=== PATIENT | female | born 1935 | race Caucasian/White ===

== ENCOUNTER → 2016-09-15 | Outpatient (CLI) | payer OTHER, BC | LOC: FIMAGING 13:25 | PROVIDERS: ATTEND Internal Medicine Hematology & Oncology | DX: Z12.39 Encounter for other screening for malignant neoplasm of breast (principal); Z85.3 Personal history of malignant neoplasm of breast; Z80.3 Family history of malignant neoplasm of breast | CPT/HCPCS: 76641; G0206; G0279 ==

== ENCOUNTER → 2016-11-19 | Outpatient (CLI) | payer OTHER, BC | LOC: BHFA 14:30 | PROVIDERS: ATTEND Internal Medicine Cardiovascular Disease | DX: I49.3 Ventricular premature depolarization (principal); I10 Essential (primary) hypertension; I48.91 Unspecified atrial fibrillation; Z95.0 Presence of cardiac pacemaker ==

== ENCOUNTER → 2017-02-16 | Outpatient (CLI) | payer OTHER, BC ==
[~2017-02-16] MED LIST: IOPAMIDOL (ISOVUE-370) 150 ML BTL IV ONE; LIDOCAINE 1% 300 MG/30 ML SDV ONE
== END ==
LOC: FIMAGING 09:34
PROVIDERS: ATTEND Orthopaedic Surgery
PROC: 3E0U3KZ Introduction of Other Diagnostic Substance into Joints, Percutaneous Approach (ICD-10-PCS; principal; 2017-02-16)
DX: S83.242A Other tear of medial meniscus, current injury, left knee, initial encounter (principal); M24.10 Other articular cartilage disorders, unspecified site; M25.562 Pain in left knee; Z95.0 Presence of cardiac pacemaker
CPT/HCPCS: 27370; 73580; 73701; Q9967

== ENCOUNTER → 2017-05-07 | Outpatient (CLI) | payer OTHER, BC | LOC: FIMAGING 14:31 | PROVIDERS: ATTEND Internal Medicine Hematology & Oncology | DX: Z12.89 Encounter for screening for malignant neoplasm of other sites (principal); M89.9 Disorder of bone, unspecified; Z85.3 Personal history of malignant neoplasm of breast ==

== ENCOUNTER 2017-05-13 06:30 | Day surgery (SDC) | payer OTHER, BC ==
--- NOTE | 2017-05-12 11:39 | GHP ---
[f rep st] PREOP HISTORY AND PHYSICAL DATE OF ADMISSION: 05/13/2017 The patient is an 81-year-old female who was initially diagnosed with an upper outer quadrant right b reast cancer in 2001. 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 This was treated with surgical excision followed by radiation therapy. She had a local recurrence in late 2014. She was treated with mastectomy. Aromatase inhib itors were offered but she declined. Patient was found to have some right anterior chest wall abnorm alities on exam, and so a PET-CT scan was obtained with her oncologist. This showed a subtle FDG hosea d soft tissue nodularity along the right anterior chest wall just superior to a skin defect measuring about 0.6 x 1 cm. It has now been decided to proceed with excisional biopsy of this right anterior chest wall mass. Risks and options have been discussed including, but not limited to, bleeding, infe ction, injury to a nerve, need for further surgeries and/or treatments, damage to surrounding structu res, and other problems, and she requests to proceed. PAST MEDICAL HISTORY: Includes breast cancer as outlined above. Also, lupus manifested in the past by pleurisy, chronic sinus drainage, permanent pacemaker placement, and also, she describes a leaky h eart valve. MEDICATIONS: Bystolic, Eliquis, hydrochlorothiazide, levothyroxine, lisinopril, Plaquenil. ALLERGIES: No known drug allergies. SOCIAL HISTORY: Patient is a nonsmoker. Her from pancreatic cancer. FAMILY HISTORY: Noncontributory. REVIEW OF SYSTEMS: A 10-point review of systems negative aside from that listed in the HPI. Patient feeling quite well. PHYSICAL EXAMINATION: GENERAL: Reveals a well-developed, well-nourished, 81-year-old female, in no acute distress. HEENT: Normocephalic, atraumatic. CHEST: Surgical absence of right breast with no dularity of the right anterior chest wall. No lymphadenopathy. CARDIAC: Regular rate and rhythm. ABDOMEN: Soft, nontender. EXTREMITIES: Warm and dry. IMPRESSION: This is an 81-year-old female with a history of breast cancer and recurrence, now with p ossible addition recurrence. PLAN: Plan is to proceed with excisional biopsy as described above. Again, risks and options have b een discussed, and she requests to proceed. She will be given instructions regarding her Eliquis jose g or to surgery. /[id number]/MODL
[~2017-05-13 06:30] MED LIST changes: -IOPAMIDOL (ISOVUE-370) 150 ML BTL IV ONE; -LIDOCAINE 1% 300 MG/30 ML SDV ONE; +ceFAZolin 2 GM in D5W 100 ML IV ONE; +ceFAZolin 2 GM/DEXTROSE 100 ML IV ONE
[2017-05-13] MEDS ORDERED: LR 1,000 ML IV ONE (06:43)
[2017-05-13] MEDS ORDERED: LIDOCAINE 1% 2 ML INJ ID PRN (06:43)
--- NOTE | 2017-05-13 07:24 | PDHPUP ---
History & Physical Update H&P update statement: This history and physical update is based on an assessment of the patient which was completed after admission or registration (within 24 hours), but prior to the surgery/procedure. H&P update: H&P reviewed & patient examined, no change in patient's condition since H&P completed
[2017-05-13 07:34] VITALS: PULSE 68
[2017-05-13] MEDS ORDERED: LIDOCAINE 1% 300 MG/30 ML SDV ONE (07:50)
[2017-05-13] MEDS ORDERED: BUPIVACAINE 0.5% 30 ML SDV ONE (07:50)
[2017-05-13] MEDS ORDERED: SODIUM BICARBONATE 10 MEQ/10 ML SYR IVP ONE (07:50)
[2017-05-13] MEDS ORDERED: METHYLENE BLUE 0.5% 50 MG/10 ML AMP ONE (07:50)
[2017-05-13] MEDS ORDERED: HYDROGEN PEROXIDE 236 ML BOTTLE TP ONE (07:50)
[2017-05-13] MEDS ORDERED: THROMBIN (BOVINE) 5,000 UNIT VIAL TP ONE (07:50)
--- NOTE | 2017-05-13 08:15 | PDANEPAE ---
ANE Past Medical History - Cardiovascular History Hx Hypertension: Yes Hx Arrhythmias: Yes Hx Chest Pain: No Hx Coronary Artery / Peripheral Vascular Disease: No Hx CHF / Valvular Disease: Yes Cardiovascular History Comment: tricuspid prolapse. mild mitral valve prolapse. [employer]tr[employer] notified of times for pre & post pacer check. - Pulmonary History Hx COPD: No Hx Asthma/Reactive Airway Disease: No Hx Recent Upper Respiratory Infection: No Hx Oxygen in Use at Home: No Hx Sleep Apnea: No Sleep Apnea Screening Result - Last Documented: Negative - Neurologic History Hx Cerebrovascular Accident: No Hx Seizures: No Hx Dementia: No Neurologic History Comment: Lupus, with peripheral neuropathy. - Endocrine History Hx Diabetes: No - Renal History Hx Renal Disorders: No - Liver History Hx Hepatic Disorders: No - Neurological & Psychiatric Hx Hx Neurological and Psychiatric Disorders: Yes Neurological / Psychiatric History Comment: lupus - Cancer History Hx Cancer: Yes Cancer History Comment: breast - Congenital Disorder History Hx Congenital Disorders: No - GI History Hx Gastrointestinal Disorders: Yes Gastrointestinal History Comment: nausea change in stool habits - Other Health History Other Health History: bruises easily, pt on eliquis - Chronic Pain History Chronic Pain: No - Surgical History Prior Surgeries: mastectomy 2016 ANE Review of Systems Review of Systems: - Exercise capacity METS (RN): 4 METS - Pacemaker Pacemaker Type: Permanent Pacer/Defib Pacemaker Gold Plater: [employer]tr[employer] Pacemaker Mode: DDDR Pacemaker Set Rate: 60 Date Pacemaker Last Checked: 03/31/17 ANE Patient History - Allergies Allergies/Adverse Reactions: No Known Allergies Allergy (Verified 10/31/15 08:54) - Home Medications Home Medications: Hydrochlorothiazide 10/31/15 [Last Taken 04/15/17] - NPO status NPO Since - Liquids (Date): 05/12/17 NPO Since - Liquids (Time): 22:30 NPO Since - Solids (Date): 05/12/17 NPO Since - Solids (Time): 21:00 - Anes Hx Anes Hx: no prior problems - Smoking Hx Smoking Status: Never smoked - Family Anes Hx Family Hx Anesthesia Complications: none ANE Labs/Vital Signs - Vital Signs Blood Pressure: 196/84 Heart Rate: 68 Respiratory Rate: 16 O2 Sat (%): 96 Height: 172.72 cm Weight: 67.132 kg ANE Physical Exam - Airway Neck exam: FROM Mallampati Score: Class 1 Mouth exam: normal dental/mouth exam - Pulmonary Pulmonary: no respiratory distress, no rales or rhonchi, clear to auscultation - Cardiovascular Cardiovascular: regular rate and rhythym, no murmur, rub, or gallop - ASA Status ASA Status: III ANE Anesthesia Plan Anesthesia Plan: MAC
[2017-05-13] MEDS ORDERED: PROPOFOL 200 MG/20 ML VIAL ONE (08:24)
[2017-05-13] MEDS ORDERED: fentaNYL 100 MCG/2 ML INJ ONE (08:26)
[2017-05-13] MEDS ORDERED: ENALAPRILAT DIHYDRATE 1.25 MG/ML VIAL IVP PRN (08:36)
[2017-05-13] MEDS ORDERED: ONDANSETRON 4 MG/2 ML VIAL IVP PRN ×2 (08:36→09:10)
[2017-05-13] MEDS ORDERED: LABETALOL HCL 50 MG/10 ML SYR IVP PRN (08:36)
[2017-05-13] MEDS ORDERED: fentaNYL 100 MCG/2 ML INJ IVP PRN (08:36)
[2017-05-13] MEDS ORDERED: NALOXONE HCL 0.4 MG/ML INJ IVP PRN (08:36)
[2017-05-13] MEDS ORDERED: HYDROCODONE/APAP 5/325 TAB PO PRN ×2 (08:36→09:10)
[2017-05-13] MEDS ORDERED: ACETAMINOPHEN 500 MG TAB PO PRN (08:36)
[2017-05-13] MEDS ORDERED: ONDANSETRON 4 MG/2 ML VIAL ONE (08:52)
[2017-05-13] MEDS ORDERED: PHENYLEPHRINE HCL 100 MCG/ML SYR ONE (09:00)
--- NOTE | 2017-05-13 09:08 | POSTOPPROG ---
Post Op Note Date of Operation: 05/13/17 Surgeon: Sanjay Wise [facility] Nurse: HARPER MELISSA Anesthesiologist: AISHA Anesthesia: GET(General Endotracheal) Pre-op Diagnosis: CHEST WALL NODULE, PROBABLE RECURRENT BREAST CA Post-op Diagnosis: SAME Indication: MASS Procedure: WIDE EXCISION CHEST WALL MASS WITH ADVANCEMENT FLAP CLOSURE Findings: 1 CM NODULE IN INTERCOSTAL MUSCLE, PATH PENDING Inf/Abcess present in the surg proc area at time of surgery?: No Depth: Deep Incisional (Fascial) EBL: Minimal Complications: 0 Specimen(s): CHEST WALL MASS
[2017-05-13] MEDS ORDERED: HYDROmorphONE/DILAUDID 1 MG/ML INJ IVP PRN (09:10)
--- NOTE | 2017-05-13 09:25 | POSTANESTH ---
Post Anesthetic Evaluation Cardiovascular Status: Similar to Pre-Op Cond Respiratory Status: Normal, Stable, Similar to Pre-op Cond. Level of Consciousness/Mental Status: Can Participate in Eval, Mildly Sleepy, Arousable Pain Control: Adequate, Prn Tx Ordered Nausea/Vomiting Control: Adequate, Prn Tx Ordered Complications Possibly Related to Anesthesia: None Noted
[2017-05-13 10:08] VITALS: TEMP 97.5
[2017-05-13 11:12] VITALS: BP 167/80; RESP 18; O2SAT 95
== END 2017-05-13 11:11 | disposition home or self-care (01) ==
LOC: FSGY 06:30
PROVIDERS: ATTEND Surgery
PROC: 0JB60ZX Excision of Chest Subcutaneous Tissue and Fascia, Open Approach, Diagnostic (ICD-10-PCS; principal; 2017-05-13 08:15)
DX: C79.81 Secondary malignant neoplasm of breast (principal); Z85.3 Personal history of malignant neoplasm of breast; Z90.11 Acquired absence of right breast and nipple; I48.0 Paroxysmal atrial fibrillation; I10 Essential (primary) hypertension; I25.10 Atherosclerotic heart disease of native coronary artery without angina pectoris; I34.1 Nonrheumatic mitral (valve) prolapse; L93.0 Discoid lupus erythematosus; Z95.0 Presence of cardiac pacemaker
CPT/HCPCS: J0690; J2370; J2405; J2704; J3010; Q9968

== ENCOUNTER 2017-05-31 09:27 | Emergency (ER) | payer OTHER, BC ==
[2017-05-31] MEDS ORDERED: NS 500 ML IV ONE (10:02)
--- NOTE | 2017-05-31 10:11 | EDPHY ---
H & P Time Seen by Provider: 05/31/17 09:39 HPI/ROS: CHIEF COMPLAINT: Generalized weakness, nausea HISTORY OF PRESENT ILLNESS: 81-year-old female with a history of hypertension and lupus presents with generalized weakness and nausea. Onset elevated blood pressure, associated with a generalized headache 3 days ago. She was seen at [facility] ED twice and received a prescription for clonidine. Intermittent headache, associated with nausea and generalized weakness over the last 3 days. This morning her blood pressure was elevated and she took clonidine , as well as her usual blood pressure medications. She continues to feel nauseated and weak. Often feels nauseated and has a prescription for nausea medicine. However, she does not like to take medicines so has not tried the medication. She is especially concerned that she is having a lupus flare. She takes Plaquenil for lupus. Her temperature has been slightly low (97.2F), which is typical of her lupus flares. REVIEW OF SYSTEMS: Constitutional: No fever, no chills Eyes: No visual changes ENT: No sore throat Respiratory: No cough, no shortness of breath Cardiac: No chest pain Gastrointestinal: no vomiting, no abdominal pain Genitourinary: no dysuria Musculoskeletal: No leg pain or swelling Skin: No rash Neurological: No headache, no weakness Psychiatric: No depression Past Medical/Surgical History: Hypertension Lupus Social History: Lives alone in own home PCP: Dr. Pulido Smoking Status: Never smoked Physical Exam: General Appearance: Alert, pleasant Eyes: Pupils equal and round, no conjunctival pallor or injection ENT, Mouth: Mucous membranes moist Neck: Normal inspection Respiratory: Lungs are clear to auscultation Cardiovascular: Regular rate and rhythm Gastrointestinal: Abdomen is soft and nontender Neurological: A&O, nonfocal, normal gait Skin: Warm and dry, no rash Extremities: Nontender, no pedal edema Psychiatric: Mood and affect normal Constitutional: Initial Vital Signs Temperature (C) 37 C 05/31/17 09:33 Heart Rate 62 05/31/17 09:33 Respiratory Rate 18 05/31/17 09:33 Blood Pressure 141/86 H 05/31/17 09:33 O2 Sat (%) 94 05/31/17 09:33 O2 Delivery Mode Room Air Allergies/Adverse Reactions: No Known Allergies Allergy (Verified 10/31/15 08:54) Home Medications: Medication Instructions Recorded Aspirin [Aspirin 325 mg (*)] 325 mg PO DAILY #0 tab 09/04/15 Hydroxychloroquine Sulfate 200 mg PO BID #0 tab 09/04/15 [Plaquenil 200 mg (*)] Levothyroxine [Synthroid 25 mcg 25 mcg PO DAILY06 #0 tab 09/04/15 (*)] Lisinopril [Zestril 5 mg (*)] 2.5 mg PO BID #0 tab 09/04/15 Nebivolol HCl [Bystolic 5 mg (*)] 5 mg PO BID #0 tab 09/04/15 Eliquis 05/31/17 Medical Decision Making - Diagnostics EKG Interpretation: EKG interpreted by me reveals an AV paced rhythm, rate 60. ED Course/Re-evaluation: 10:00 a.m.-I consulted Dr. Tani Sargent, the patient's check writer salesperson. He requests a double-stranded DNA, CRP and urinalysis. No steroids for now. He will follow up with the patient in the office. Discussed this with the patient and she is in agreement with the plan. Laboratory test results discussed with the patient. She feels much better. During monitoring in the emergency department, her blood pressure has been fairly normal, with a systolic blood pressure around 140. No episodes of extreme hypertension. She will continue taking her blood pressure medications as prescribed and clonidine as needed for elevated blood pressure. She will follow up with Dr. Sargent in the office. Differential Diagnosis: Differential diagnosis includes does not limited to lupus flare, urinary tract infection, hyponatremia, hypoglycemia, infectious etiology. - Data Points Laboratory Results: Laboratory Results 05/31/17 10:10 05/31/17 10:10 05/31/17 05/31/17 05/31/17 11:40 10:10 10:10 WBC RBC Hgb Hct MCV MCH MCHC RDW Plt Count MPV Neut % (Auto) Lymph % (Auto) [place] % (Auto) Eos % (Auto) Baso % (Auto) Nucleat RBC Rel Count Absolute Neuts (auto) Absolute Lymphs (auto) Absolute Monos (auto) Absolute Eos (auto) Absolute Basos (auto) Absolute Nucleated RBC Immature Gran % Immature Gran # Sodium Potassium Chloride Carbon Dioxide Anion Gap BUN Creatinine Estimated GFR Glucose Calcium C-Reactive Protein Urine Color YELLOW Urine Appearance CLEAR Urine pH 6.0 (5.0-7.5) Ur Specific [place] 1.005 (1.002-1.030) Urine Protein NEGATIVE (NEGATIVE) Urine Ketones NEGATIVE (NEGATIVE) Urine Blood NEGATIVE (NEGATIVE) Urine Nitrate NEGATIVE (NEGATIVE) Urine Bilirubin NEGATIVE (NEGATIVE) Urine Urobilinogen NEGATIVE EU EU (0.2-1.0) Ur Leukocyte Esterase NEGATIVE (NEGATIVE) Urine Glucose NEGATIVE (NEGATIVE) PAT Titer Pending PAT Pattern Pending PAT Reviewed By Pending Anti-ds DNA IgG Ab Pending 05/31/17 05/31/17 10:10 10:10 WBC 4.00 10^3/uL 10^3/uL (3.80-9.50) RBC 3.94 10^6/uL L 10^6/uL (4.18-5.33) Hgb 13.6 g/dL g/dL (12.6-16.3) Hct 38.7 % % (38.0-47.0) MCV 98.2 fL fL (81.5-99.8) MCH 34.5 pg H pg (27.9-34.1) MCHC 35.1 g/dL g/dL (32.4-36.7) RDW 12.8 % % (11.5-15.2) Plt Count 155 10^3/uL 10^3/uL (150-400) MPV 9.6 fL fL (8.7-11.7) Neut % (Auto) 60.1 % % (39.3-74.2) Lymph % (Auto) 25.5 % % (15.0-45.0) [place] % (Auto) 12.8 % % (4.5-13.0) Eos % (Auto) 0.8 % % (0.6-7.6) Baso % (Auto) 0.5 % % (0.3-1.7) Nucleat RBC Rel Count 0.0 % % (0.0-0.2) Absolute Neuts (auto) 2.41 10^3/uL 10^3/uL (1.70-6.50) Absolute Lymphs (auto) 1.02 10^3/uL 10^3/uL (1.00-3.00) Absolute Monos (auto) 0.51 10^3/uL 10^3/uL (0.30-0.80) Absolute Eos (auto) 0.03 10^3/uL 10^3/uL (0.03-0.40) Absolute Basos (auto) 0.02 10^3/uL 10^3/uL (0.02-0.10) Absolute Nucleated RBC 0.00 10^3/uL 10^3/uL (0-0.01) Immature Gran % 0.3 % % (0.0-1.1) Immature Gran # 0.01 10^3/uL 10^3/uL (0.00-0.10) Sodium 137 mEq/L mEq/L (134-144) Potassium 4.6 mEq/L mEq/L (3.5-5.2) Chloride 98 mEq/L mEq/L (97-110) Carbon Dioxide 29 mEq/l mEq/l (22-31) Anion Gap 10 mEq/L mEq/L (8-16) BUN 21 mg/dL mg/dL (7-23) Creatinine 1.1 mg/dL H mg/dL (0.6-1.0) Estimated GFR 47 Glucose 78 mg/dL mg/dL (70-100) Calcium 10.0 mg/dL mg/dL (8.5-10.4) C-Reactive Protein < 5.0 mg/L mg/L (<10.0) Urine Color Urine Appearance Urine pH Ur Specific [place] Urine Protein Urine Ketones Urine Blood Urine Nitrate Urine Bilirubin Urine Urobilinogen Ur Leukocyte Esterase Urine Glucose PAT Titer PAT Pattern PAT Reviewed By Anti-ds DNA IgG Ab Medications Given: Discontinued Medications Sodium Chloride (Ns) 500 mls @ 0 mls/hr IV EDNOW ONE; Wide Open PRN Reason: Protocol Stop: 05/31/17 10:03 Last Admin: 05/31/17 10:26 Dose: 500 mls Departure - Departure Disposition: Home, Routine, Self-Care Clinical Impression: Nausea Hypertension Qualifiers: Hypertension type: essential hypertension Qualified Code(s): I10 - Essential ( primary) hypertension Condition: Good Instructions: Acute Nausea and Vomiting (ED), Hypertension (ED) Additional Instructions: Take the nausea medicine as needed for nausea. Return for worsening symptoms or any concerns. Referrals: Tani Sargent MD [Primary Care Provider] - As per Instructions (Call to make an appointment. )
--- NOTE | 2017-05-31 10:20 | CPEKG ---
Heart Rate: 60 RR Interval: 1000 P-R Interval: 298 QRSD Interval: 132 QT Interval: 456 QTC Interval: 456 P [place]: 0 QRS [place]: 98 T Wave [place]: 204 EKG Severity - ABNORMAL ECG - EKG Impression: ATRIAL-VENTRICULAR DUAL-PACED COMPLEXES Electronically Signed By: Sabrina Parish 31-May-2017 15:00:17
--- NOTE | 2017-05-31 10:20 | CPEKG ---
Heart Rate: 60 RR Interval: 1000 P-R Interval: 298 QRSD Interval: 132 QT Interval: 456 QTC Interval: 456 P [place]: 0 QRS [place]: 98 T Wave [place]: 204 EKG Severity - ABNORMAL ECG - EKG Impression: ATRIAL-VENTRICULAR DUAL-PACED COMPLEXES Electronically Signed By: Sabrina Parish 31-May-2017 15:00:17
[2017-05-31 11:17] LABS: PLATELET COUNT 155 10^3/uL (150-400)
[2017-05-31 12:06] VITALS: RESP 18; TEMP 98.4; O2SAT 96
[2017-05-31 13:05] VITALS: BP 139/78; PULSE 72
== END 2017-05-31 13:04 | disposition home or self-care (01) ==
DX: R11.0 Nausea (principal); I10 Essential (primary) hypertension; E86.9 Volume depletion, unspecified; Z79.82 Long term (current) use of aspirin
CPT/HCPCS: 86225-90

== ENCOUNTER 2017-07-07 13:34 | Inpatient (IN) | payer OTHER, BC ==
--- NOTE | 2017-07-07 14:09 | CPEKG ---
Heart Rate: 71 RR Interval: 845 P-R Interval: 296 QRSD Interval: 140 QT Interval: 428 QTC Interval: 466 P [place]: 88 QRS [place]: 101 T Wave [place]: 195 EKG Severity - ABNORMAL ECG - EKG Impression: VENTRICULAR-PACED RHYTHM Electronically Signed By: John Spears 07-Jul-2017 14:27:59
--- NOTE | 2017-07-07 14:09 | EDPHY ---
H & P Stated Complaint: Labile hypertension, left-sided numbness Time Seen by Provider: 07/07/17 14:07 HPI/ROS: CHIEF COMPLAINT: Labile hypertension, left-sided paresthesias HISTORY OF PRESENT ILLNESS: The patient is referred to the emergency department by her vfx artist Dr. Ford Patel for admission to the hospital. The patient has had labile hypertension over the past several weeks since beginning tamoxifen in radiation therapy. The patient reports she has been experiencing blood pressure in the 210/150 region sporadically. She has been managing this with lisinopril, Bystolic and occasional clonidine. The patient was seen by her vfx artist today and noted to have a blood pressure of 188/ 100 and was referred to the emergency department for further evaluation. The patient is currently on Eliquis for chronic atrial fibrillation. Additionally the patient has a pacemaker. The patient denies any acute neurologic symptoms currently. The patient does complain of a severe headache. REVIEW OF SYSTEMS: A comprehensive 10 point review of systems is otherwise negative aside from elements mentioned in the history of present illness. Source: Patient Exam Limitations: No limitations - Personal History Current Tetanus Diphtheria and Acellular Pertussis (TDAP): No - Medical/Surgical History Hx Asthma: No Hx Chronic Respiratory Disease: No Hx Diabetes: No Hx Cardiac Disease: Yes Hx Renal Disease: No Hx Cirrhosis: No Hx Alcoholism: No Hx HIV/AIDS: No Hx Splenectomy or Spleen Trauma: No Other PMH: HTN, lupus, pacemaker, appy, breast CA (rt side), a-fib - Social History Smoking Status: Never smoked - Physical Exam Exam: General Appearance: Alert, no distress Eyes: Pupils equal and round no pallor or injection ENT, Mouth: Mucous membranes moist Respiratory: There are no retractions, lungs are clear to auscultation Cardiovascular: Regular rate and rhythm Gastrointestinal: Abdomen is soft and nontender, no masses, bowel sounds normal Neurological: A&O, normal motor function, normal sensory exam, normal cranial nerves Skin: Warm and dry, no rashes Musculoskeletal: Neck is supple nontender Extremities: symmetrical, full range of motion Constitutional: Initial Vital Signs Temperature (C) 36.5 C 07/07/17 13:35 Heart Rate 80 07/07/17 13:35 Respiratory Rate 18 07/07/17 13:35 Blood Pressure 162/89 H 07/07/17 13:35 O2 Sat (%) 97 07/07/17 13:35 O2 Delivery Mode Room Air Allergies/Adverse Reactions: No Known Allergies Allergy (Verified 10/31/15 08:54) Home Medications: Medication Instructions Recorded Levothyroxine [Synthroid 25 mcg 25 mcg PO DAILY06 #0 tab 09/04/15 (*)] Nebivolol HCl [Bystolic 5 mg (*)] 5 mg PO BID #0 tab 09/04/15 Apixaban [Eliquis] 2.5 mg PO BID 05/31/17 Butalbit/Acetamin/Caff/Codeine 1 each PO DAILY PRN 07/07/17 [[id number]-[id number]-Klypmeplrqo-Codein] Hydroxychloroquine Sulfate 200 mg PO DAILY 07/07/17 [Plaquenil 200 mg (*)] Lisinopril [Zestril 5 mg (*)] 5 mg PO BID 07/07/17 predniSONE [Prednisone] 10 mg PO DAILY PRN 07/07/17 Medical Decision Making - Diagnostics EKG Interpretation: EKG: Complete interpretation has been separately [facility] in the [facility] archive. Summary impression: Ventricular paced rhythm Imaging Results: Imaging Impressions Head CT 07/07/17 14:24 Impression: 1. No acute intracranial findings. 2. Diffuse cerebral atrophy with periventricular and subcortical low attenuation consistent with chronic microvascular ischemic gliosis. Findings discussed with John Spears 07/07/2017 at 1540. ED Course/Re-evaluation: The patient presents to the ED for admission to the hospital with a recommendation for vfx artist. The patient has been having TIA symptoms with left-sided paresthesias over the past day. The patient has had associated hypertension with the symptoms. The patient is currently normotensive with a normal neurologic exam. Her NIH stroke scale is 0. The patient was taken for a stat noncontrast head CT scan for evaluation of her acute headache in the setting of hypertension anticoagulation use. The patient's case was discussed with Dr. Tyra Garcia from the hospitalist service who will admit the patient this evening. The patient received serial examinations in the ED. At 4:30 p.m. the patient's blood pressure is currently 152/100. Heart rate is 66. Neurologic examination remains normal. The patient is awaiting an inpatient bed. Differential Diagnosis: Differential diagnosis considered includes stroke, TIA, hypertensive emergency, intracranial hemorrhage - Data Points Laboratory Results: Laboratory Results 07/07/17 14:30 07/07/17 14:30 07/07/17 07/07/17 07/07/17 14:30 14:30 14:30 WBC 4.94 10^3/uL 10^3/uL (3.80-9.50) RBC 3.61 10^6/uL L 10^6/uL (4.18-5.33) Hgb 12.7 g/dL g/dL (12.6-16.3) Hct 35.0 % L % (38.0-47.0) MCV 97.0 fL fL (81.5-99.8) MCH 35.2 pg H pg (27.9-34.1) MCHC 36.3 g/dL g/dL (32.4-36.7) RDW 12.8 % % (11.5-15.2) Plt Count 140 10^3/uL L 10^3/uL (150-400) MPV 9.6 fL fL (8.7-11.7) Neut % (Auto) 83.8 % H % (39.3-74.2) Lymph % (Auto) 11.3 % L % (15.0-45.0) [place] % (Auto) 4.3 % L % (4.5-13.0) Eos % (Auto) 0.0 % L % (0.6-7.6) Baso % (Auto) 0.2 % L % (0.3-1.7) Nucleat RBC Rel Count 0.0 % % (0.0-0.2) Absolute Neuts (auto) 4.14 10^3/uL 10^3/uL (1.70-6.50) Absolute Lymphs (auto) 0.56 10^3/uL L 10^3/uL (1.00-3.00) Absolute Monos (auto) 0.21 10^3/uL L 10^3/uL (0.30-0.80) Absolute Eos (auto) 0.00 10^3/uL L 10^3/uL (0.03-0.40) Absolute Basos (auto) 0.01 10^3/uL L 10^3/uL (0.02-0.10) Absolute Nucleated RBC 0.00 10^3/uL 10^3/uL (0-0.01) Immature Gran % 0.4 % % (0.0-1.1) Immature Gran # 0.02 10^3/uL 10^3/uL (0.00-0.10) PT 14.4 SEC SEC (12.0-15.0) INR 1.10 (0.83-1.16) APTT 25.8 SEC SEC (23.0-38.0) Sodium 138 mEq/L mEq/L (134-144) Potassium 4.3 mEq/L mEq/L (3.5-5.2) Chloride 103 mEq/L mEq/L (97-110) Carbon Dioxide 25 mEq/l mEq/l (22-31) Anion Gap 10 mEq/L mEq/L (8-16) BUN 24 mg/dL H mg/dL (7-23) Creatinine 0.9 mg/dL mg/dL (0.6-1.0) Estimated GFR 60 Glucose 125 mg/dL H mg/dL (70-100) Calcium 9.5 mg/dL mg/dL (8.5-10.4) Medications Given: Discontinued Medications Morphine Sulfate (Morphine) 4 mg IVP EDNOW ONE Stop: 07/07/17 16:02 Last Admin: 07/07/17 16:12 Dose: Not Given Departure - Departure Disposition: [facility] Inpatient Acute Clinical Impression: TIA (transient ischemic attack), Hypertensive emergency Condition: Fair
[2017-07-07 14:40] LABS: % IMMATURE GRANULYOCYTES 0.4 % (0.0-1.1); ABSOLUTE IMMATURE GRANULOCYTES 0.02 10^3/uL (0.00-0.10); ADD DIFF? NO; ADD MORPH? NO; ADD SCAN? NO; ATYPICAL LYMPHOCYTE FLAG 10 (0-99); FRAGMENT RBC FLAG 0 (0-99); HEMOGLOBIN 12.7 g/dL (12.6-16.3); LEFT SHIFT FLG 0 (0-99); LIPEMIA HEMOLYSIS FLAG 90 (0-99); MEAN CELL HEMOGLOBIN 35.2 pg (27.9-34.1); MEAN CELL HEMOGLOBIN CONCENTR. 36.3 g/dL (32.4-36.7); MEAN PLATELET VOLUME 9.6 fL (8.7-11.7); PLATELET CLUMPS FLAG 10 (0-99); PLATELET COUNT 140 10^3/uL (150-400); RED BLOOD CELL COUNT 3.61 10^6/uL (4.18-5.33); RED CELL DISTRIBUTION WIDTH 12.8 % (11.5-15.2)
[2017-07-07 14:54] LABS: ANION GAP 10 mEq/L (8-16); CALCIUM 9.5 mg/dL (8.5-10.4); CARBON DIOXIDE 25 mEq/l (22-31); CHLORIDE 103 mEq/L (97-110); CREATININE 0.9 mg/dL (0.6-1.0); GLOMERULAR FILTRATION RATE 60; GLUCOSE 125 mg/dL (70-100); POTASSIUM 4.3 mEq/L (3.5-5.2); SODIUM 138 mEq/L (134-144)
[2017-07-07 15:08] LABS: INR 1.1 (0.83-1.16); PROTIME(PATIENT) 14.4 SEC (12.0-15.0)
[2017-07-07 15:09] LABS: APTT 25.8 SEC (23.0-38.0)
[2017-07-07] MEDS ORDERED: ONDANSETRON DISINTEGRATING 4 MG TAB PO PRN (17:36)
[2017-07-07] MEDS ORDERED: ACETAMINOPHEN 325 MG TAB PO PRN (17:36)
[2017-07-07] MEDS ORDERED: ONDANSETRON 4 MG/2 ML VIAL IVP PRN (17:36)
[2017-07-07] MEDS ORDERED: BUTALBIT PO PRN (17:38)
[2017-07-07] MEDS ORDERED: CODEINE PO PRN (17:38)
[2017-07-07] MEDS ORDERED: ACETAMIN PO PRN (17:38)
[2017-07-07] MEDS ORDERED: CAFF PO PRN (17:38)
--- NOTE | 2017-07-07 17:58 | GHP ---
[f rep st] HISTORY AND PHYSICAL DATE OF ADMISSION: 07/07/2017 CHIEF COMPLAINT: Elevated blood pressure, headache. HISTORY OF PRESENT ILLNESS: This is an 82-year-old female with a history of hypertension, as well as atrial fibrillation and a recent diagnosis of recurrent breast cancer. She states that she has been getting radiation for the last 5 days and that the radiation is making her blood pressure rise. She was actually given clonidine to use as needed by her oncologist. However, in spite of that her bloo d pressure this morning was over 200 and was associated with headache and also some transient left-si ded numbness and tingling with a little bit of left-sided weakness. This resolved pretty quickly, on ce she took another dose of clonidine which decreased her blood pressure. She went to see her cardio logist, Dr. Patel and her blood pressures were in the 180s and with her neurological symptoms, she w as sent to the emergency department. Currently, she does not have any neurological symptoms. Her bl ood pressure has come down to the 150s but has been as high as 181/92 here. She states that she did have a headache and feels hot. She states the radiation is making her feel hot. It has also kicked up her previous history of lupus and she has increased her prednisone. She denies any chest pain. A gain, she has no neurological symptoms currently. REVIEW OF SYSTEMS: A 10-point review of systems was obtained and was negative. PAST MEDICAL HISTORY: 1. Recurrent breast cancer. She was initially diagnosed 12 years ago and then had a recurrence in h er chest wall just recently. This was removed. She is undergoing radiation. She has been unable to tolerate tamoxifen or aromatase inhibitors. 2. Atrial fibrillation, she is on Eliquis. 3. Pacemaker. 4. Lupus which as above, she has increased her prednisone to 10 mg daily. 5. Hypertension. SOCIAL HISTORY: No smoking or alcohol. Her 7 years ago. She does live in [place] a nd here in [place]. FAMILY HISTORY: Both parents are . PHYSICAL EXAM: VITAL SIGNS: Afebrile, blood pressure is 152/102, oxygen saturation is 98% on room a ir, heart rate 72. GENERAL: Patient is well developed, no apparent distress. HEENT: Nonicteric scl erae. Extraocular movements intact. Moist mucous membranes. NECK: Supple. No thyromegaly. LUNGS : Good effort. Clear to auscultation bilaterally. CARDIOVASCULAR: Regular rate and rhythm. No mu rmurs or gallops. CHEST WALL: Does show some inflammation where I believe she is getting radiation on the right side. ABDOMEN: Positive bowel sounds. Soft, nontender, nondistended. No hepatospleno megaly. EXTREMITIES: No clubbing, cyanosis, or edema. SKIN: Without rash, dry, intact. NEUROLOGI C: Alert and oriented x3. 5/5 strength in all 4 extremities. PSYCH: Normal mood and affect. LABS: CBC is essentially normal although platelets are a little low. Chemistries normal. EKG shows a paced rhythm. Head CT is negative for any acute changes. ASSESSMENT: This 82-year-old female with uncontrolled hypertension probably due to her radiation. PLAN: 1. Uncontrolled hypertension. The patient is on a small dose of lisinopril. We will increase that to 10 mg twice daily for 5 mg twice daily. She does state that she is sensitive to lisinopril and do es make her feel like her "blood has stopped pumping." We will watch and see what her blood pressure does overnight and in the morning. Could also add Norvasc or go up on Bystolic. I think that using clonidine on a regular basis could be counterproductive because of the rebound hypertension. I thin k her transient neurological symptoms were due to her high blood pressure. We will not institute an extensive transient ischemic attack workup currently. She is on Eliquis already for her atrial fibri llation. 2. Breast cancer. The patient is scheduled for radiation tomorrow, which I think she probably will cancel. 3. Atrial fibrillation. The patient is currently in a paced rhythm. We will continue Eliquis. /[id number]/MODL
[2017-07-07] MEDS: LISINOPRIL 10 MG TAB PO SCH (20:21)
[2017-07-07] MEDS: APIXABAN 2.5 MG TAB PO SCH (20:22)
[2017-07-07] MEDS: NEBIVOLOL HCL 5 MG TAB PO SCH (20:22)
[2017-07-08 05:43] LABS: % IMMATURE GRANULYOCYTES 0.5 % (0.0-1.1); ABSOLUTE IMMATURE GRANULOCYTES 0.02 10^3/uL (0.00-0.10); ADD DIFF? NO; ADD MORPH? NO; ADD SCAN? NO; ATYPICAL LYMPHOCYTE FLAG 20 (0-99); FRAGMENT RBC FLAG 0 (0-99); HEMATOCRIT 35.8 % (38.0-47.0); HEMOGLOBIN 12.7 g/dL (12.6-16.3); LEFT SHIFT FLG 0 (0-99); LIPEMIA HEMOLYSIS FLAG 90 (0-99); MEAN CELL HEMOGLOBIN 34.5 pg (27.9-34.1); MEAN CELL HEMOGLOBIN CONCENTR. 35.5 g/dL (32.4-36.7); MEAN CELL VOLUME 97.3 fL (81.5-99.8); MEAN PLATELET VOLUME 9.9 fL (8.7-11.7); PLATELET CLUMPS FLAG 0 (0-99); PLATELET COUNT 143 10^3/uL (150-400); RED BLOOD CELL COUNT 3.68 10^6/uL (4.18-5.33); RED CELL DISTRIBUTION WIDTH 12.8 % (11.5-15.2)
[2017-07-08 05:47] LABS: ANION GAP 9 mEq/L (8-16); CALCIUM 9.5 mg/dL (8.5-10.4); CARBON DIOXIDE 25 mEq/l (22-31); CHLORIDE 104 mEq/L (97-110); CREATININE 0.9 mg/dL (0.6-1.0); GLOMERULAR FILTRATION RATE 60; GLUCOSE 81 mg/dL (70-100); POTASSIUM 4.4 mEq/L (3.5-5.2); SODIUM 138 mEq/L (134-144)
[2017-07-08] MEDS: LEVOTHYROXINE 25 MCG TAB PO SCH (05:59)
[2017-07-08] MEDS: HYDROXYCHLOROQUINE SULFATE 200 MG TAB PO SCH (08:39)
[2017-07-08] MEDS: LISINOPRIL 10 MG TAB PO SCH ×2 (08:40→20:38)
[2017-07-08] MEDS: APIXABAN 2.5 MG TAB PO SCH ×2 (08:40→20:38)
[2017-07-08] MEDS: NEBIVOLOL HCL 5 MG TAB PO SCH ×2 (08:40→20:38)
[2017-07-08] MEDS: predniSONE 10 MG TAB PO PRN (08:45)
--- NOTE | 2017-07-08 10:15 | ASMTCMCOM ---
CM Note CM Note Notes: Met with patient. She currently lives alone. Daughter in area but patient states she is busy and unable to provide a lot of support. patient reports she is currently undergoing radiation therapy for re-occuring breast cancer and this is stressful for her. She denies any needs for [facility] but is 5/30 days of radiation. She is tearful and states she is unsure of her ability to maintain this schedule. No current needs identified but CM to follow. Date Signed: 07/08/2017 10:15 AM Electronically Signed By:Cata Saldaña RN
--- NOTE | 2017-07-08 13:00 | HOSPPROG ---
Hospitalist Progress Note Assessment/Plan: Patient is an 82-year-old female with history of hypertension, atrial fibrillation and recent diagnosis of recurrent breast cancer. She has been getting radiation with the last 5 days. When she receives radiation makes her blood pressure rise. She was given clonidine to use as needed by her oncologist. However in spite of this her systolic blood pressure was over 200. Today is my 1st encounter with the patient. Chart reviewed. * uncontrolled hypertension -blood pressure is much improved with increasing her dose of lisinopril -she is on clonidine prn and took this w good results -will do a trial of hydralazine prn *she had some weakness on left side of her body prior (l arm, l leg and left facial area) to admission, poss had a TIA -can't do an MRI due to pacer -symptoms have completely resolved -will get carotid Doppler studies -check lipid panel in a.m. -neurology to see *headache -reviewed CT scan which shows chronic gliosis, nothing acute (this is a chronic finding) -blood pressure is stable when I evaluated her but she cont to have a headache * atrial fibrillation -she has a pacemaker in place and is paced, anticoagulated with Eliquis -she was to have pacer checked today, will have this done while in the hospital * breast cancer -radiation rescheduled for Wednesday *plan: headache is ongoing, increased her frequency of her home medication, concern with this medication and multiple side effects. She has ongoing headaches that can be severe and concern for possible TIA. Will ask neurology to further evaluate. Will place her on tele. She will require another midnight stay for close monitoring. Subjective: Naomy said she is concerned about the frequency of her headaches and is very concerned about her high blood pressure which has been ongoing for a few months. Objective: Vital Signs Temp Pulse Resp BP Pulse Ox 36.9 C 60 16 136/80 H 96 07/08/17 08:00 07/08/17 12:00 07/08/17 12:00 07/08/17 12:00 07/08/17 12:00 Laboratory Results 07/08/17 05:00 07/08/17 05:00 07/07/17 07/08/17 07/09/17 05:59 05:59 05:59 Intake Total 650 Balance 650 PT 14.4 SEC (12.0-15.0) 07/07/17 14:30 INR 1.10 (0.83-1.16) 07/07/17 14:30 - Physical Exam Constitutional: no apparent distress, appears nourished, No not in pain ( headache) Eyes: PERRL Ears, Nose, Mouth, Throat: hearing normal Cardiovascular: regular rate and rhythym Respiratory: no respiratory distress Gastrointestinal: normoactive bowel sounds Skin: warm, normal color Musculoskeletal: full muscle strength Neurologic: AAOx3, CN II-XII Intact, No weakness, No numbness, No pronator drift , No facial droop Psychiatric: interacting appropriately, not anxious, not encephalopathic ICD10 Worksheet Patient Problems: Problems Problem Status Onset Hypertensive emergency Acute TIA (transient ischemic attack) Acute Breast cancer Acute Headache Acute Hypertension Acute
[2017-07-08] MEDS: hydrALAZINE 10 MG TAB PO PRN ×2 (15:47→23:01)
[2017-07-09 05:00] VITALS: TEMP 98.5
[2017-07-09 05:06] LABS: CHOLESTEROL 167 mg/dL (140-220); CHOLESTEROL/HDL RATIO 2.53 RATIO (1.00-4.44); HIGH DENSITY LIPOPROTEIN 66 mg/dL (40-85); LDL/HDL RATIO 1.32 RATIO (1.00-3.22); LOW DENSITY LIPOPROTEIN 87 mg/dL (80-100); NON-HIGH DENSITY LIPOPROTEIN 101 mg/dL (90-129); TRIGLYCERIDE 72 mg/dL (35-135); VERY LOW DENSITY LIPOPROTEINS 14 mg/dL (8-25)
[2017-07-09] MEDS: LEVOTHYROXINE 25 MCG TAB PO SCH (06:01)
[2017-07-09 07:57] VITALS: RESP 20
[2017-07-09] MEDS: HYDROXYCHLOROQUINE SULFATE 200 MG TAB PO SCH (08:52)
[2017-07-09] MEDS: NEBIVOLOL HCL 5 MG TAB PO SCH (08:53)
[2017-07-09] MEDS: APIXABAN 2.5 MG TAB PO SCH (08:53)
[2017-07-09] MEDS: predniSONE 10 MG TAB PO PRN (08:53)
[2017-07-09] MEDS: LISINOPRIL 10 MG TAB PO SCH (08:53)
--- NOTE | 2017-07-09 09:22 | PDMN ---
Medical Necessity Medical necessity: change to IP; los>2mn for uncontrolled htn, r/o TIA, continued LYON; requires neuro consult, further imaging, initiate tele, med adjustment for BP and pain control; comorbid breast CA w/RT, afib; per order and progress note 07/08/17
[2017-07-09 09:26] LABS: HEMOGLOBIN A1C 5.7 % (4.0-6.0)
--- NOTE | 2017-07-09 09:48 | NEUROPROG ---
Assessment: HOSPITAL NEUROLOGY CONSULT REQUESTING: Karen Kumar NP REASON: ? TIA HPI: 82 year old right-handed woman with a history of HTN, afib on therapeutic anticoagulation and with PPM, SLE, recurrent breast CA currently undergoing radiation who presented to our facility 07/07 due to accelerated BP and left sided tingling. Patient notes increasing BPs with her radiation treatment. She has been using clonidine PRN at the behest of her oncology team. She notes the morning of presentation her SBP was above 200. She notes she was also experiencing tingling in the left side of her body and her left leg felt a bit weak. She took some clonidine which reduced her BP and also resolved her symptoms. She came to our ED at the request of her industrial trainer. She was indeed found to be hypertensive with SBPs in 180s and this has been treated since admission. She had a CT head wo that showed global volume loss and changes in the white matter consistent with chronic microvascular ischemia. She notes no recurrence of neurologic symptoms since admission and lower of her BP. ROS: As per the HPI, otherwise a complete 12 point ROS was performed and is negative ALLERGIES AND MEDS: As recorded in the EMR - reviewed and reconciled PFSH: As per the intake H&P by Dr. Garcia from 07/07 EXAM: VS reviewed in EMR GEN: WDWN laying in NAD HEENT: NCAT, sclera anicteric, conjunctiva not injected, MMM, oropharynx clear, no scalp tenderness NECK: supple, nontender, no meningismus CV: RRR s1 s2 wo m/r/c/g. Carotid pulses 2+ wo bruit NEURO: MS: awake, alert, oriented to all spheres. Speech nondysarthric. No language disturbance. Follows commands. Attends to both sides. Recent/remote memory grossly intact. Mood euthymic. Good fund of knowledge. CN: pupils 3mm round and reactive. Intolerant of fundoscopy. VFF. Primary gaze centered. Full ocular motility. Facial sensation preserved. Face symmetric. Hearing grossly intact to finger rub. Palatoglossal movements intact. Shoulder shrug and head turn strong. MOTOR: normal bulk/tone. No adventitial movements. Full power throughout. SENSORY: symmetric LT/PP throughout, though reduced sensation noted in BLEs to above ankles from chronic neuropathy. No extinction. COORD: no ataxia FN/HS. Esdras preserved. REFLEX: plantars down. No clonus. Absent LE DTRs, BUE DTRS 2/4. GAIT: deferred to PT safety eval DATA REVIEW: Labs reviewed in EMR PERSONALLY INTERPRETED RESULTS AND DATA: CT head wo per HPI IMPRESSION AND RECOMMENDATIONS: // HTN EMERGENCY Patient with transient neurologic symptoms in the setting of acceleration in BP , and resolution of symptoms with treatment of BP. I agree with Dr. Garcia that her transient tingling and weakness was likely from her severe HTN. She cannot have an MRI due to PPM. She is already anticoagulated with NOAC. Patient would not want major vascular intervention so will not pursue vascular imaging. Continue to work with primary team on BP control. Agree with discontinuing clonidine due to high risk of rebound HTN. Stroke education provided. Will sign off. Please recall PRN. Objective: Vital Signs Temp Pulse Resp BP Pulse Ox 36.9 C 70 20 158/78 H 96 07/09/17 04:00 07/09/17 07:56 07/09/17 07:56 07/09/17 07:56 07/09/17 07:56 07/08/17 07/09/17 07/10/17 05:59 05:59 05:59 Intake Total 1200 350 Balance 1200 350 PT 14.4 SEC (12.0-15.0) 07/07/17 14:30 INR 1.10 (0.83-1.16) 07/07/17 14:30 Allergies/Adverse Reactions: No Known Allergies Allergy (Verified 10/31/15 08:54)
--- NOTE | 2017-07-09 10:50 | HOSPPROG ---
Hospitalist Progress Note Assessment/Plan: Patient is an 82-year-old female with history of hypertension, atrial fibrillation and recent diagnosis of recurrent breast cancer. She has been getting radiation with the last 5 days. When she receives radiation makes her blood pressure rise. She was given clonidine to use as needed by her oncologist. However in spite of this her systolic blood pressure was over 200. * uncontrolled hypertension/hypertensive urgency -blood pressure is much improved with increasing her dose of lisinopril -she is on clonidine prn and took this w good results, but concerned about rebound htn -hydralazine prn has helped *she had some weakness on left side of her body prior (l arm, l leg and left facial area), see Dr Talamantes -can't do an MRI due to pacer -symptoms have completely resolved -will get carotid Doppler studies -check lipid panel in a.m. -neurology to see *headache -reviewed CT scan which shows chronic gliosis, nothing acute (this is a chronic finding) -blood pressure is stable when I evaluated her but she cont to have a headache * atrial fibrillation -she has a pacemaker in place and is paced, anticoagulated with Eliquis -pacer interrogated, stable * breast cancer -radiation rescheduled for Wednesday *plan: will dc her on prn hydralazine to take if systolic bp is >160 Subjective: Naomy describes her head as feeling full. Very anxious about her blood pressure. Objective: Vital Signs Temp Pulse Resp BP Pulse Ox 36.9 C 70 20 158/78 H 96 07/09/17 04:00 07/09/17 07:56 07/09/17 07:56 07/09/17 07:56 07/09/17 07:56 07/08/17 07/09/17 07/10/17 05:59 05:59 05:59 Intake Total 1200 350 Balance 1200 350 PT 14.4 SEC (12.0-15.0) 07/07/17 14:30 INR 1.10 (0.83-1.16) 07/07/17 14:30 - Physical Exam Constitutional: appears nourished, not in pain Eyes: PERRL Ears, Nose, Mouth, Throat: hearing normal Cardiovascular: regular rate and rhythym Respiratory: no respiratory distress Gastrointestinal: normoactive bowel sounds Skin: warm Musculoskeletal: full muscle strength Neurologic: AAOx3 Psychiatric: interacting appropriately, not anxious, not encephalopathic, anxious ICD10 Worksheet Patient Problems: Problems Problem Status Onset Hypertensive emergency Acute TIA (transient ischemic attack) Acute Breast cancer Acute Headache Acute Hypertension Acute
[2017-07-09 11:47] VITALS: BP 138/70; PULSE 60; O2SAT 95
--- NOTE | 2017-07-09 14:28 | ASDISCHSUM ---
Discharge Information Plan Status:Home with No Needs Medically Cleared to Leave:07/08/2017 Discharge Date:07/08/2017 CM D/C Disposition:Home, Routine, Self-Care ADT D/C Disposition:Home, Routine, Self-Care Projected Discharge Date:07/08/2017 Transportation at D/C:Family Discharge Delay Reason: Follow-Up Date:07/08/2017 Discharge Slot: Final Diagnosis: Placement Information Patient Contact Information Contact Name:KITA Relationship:Daughter Address:[address] City:[place] Alternate Phone: [facility]/Zip Code:[place] [address] Email: Financial Information Financial Class: Primary Plan Desc:MEDICARE INPATIENT Primary Plan Number:[id number] Secondary Plan Desc: OUT OF STATE INDEMNITY Secondary Plan Number:[id number] Assessment Information BC CM Progress Note CM Note CM Note Notes: Met with patient. She currently lives alone. Daughter in area but patient states she is busy and unable to provide a lot of support. patient reports she is currently undergoing radiation therapy for re-occuring breast cancer and this is stressful for her. She denies any needs for HHC but is 5/30 days of radiation. She is tearful and states she is unsure of her ability to maintain this schedule. No current needs identified but CM to follow. Date Signed: 07/08/2017 10:15 AM Electronically Signed By:Cata Saldaña RN Intervention Information Intervention Type:*Incorrect Registration Date of Service:07/08/2017 11:38 AM Patient Type:Inpatient Staff Member:SARAH Jeff Susan Hours: Discipline: Severity: Comment:
[2017-07-09 16:25] LABS: COLOR YELLOW; LEUKOCYTE ESTERASE,URINE NEGATIVE (NEGATIVE); NITRITE,URINE NEGATIVE (NEGATIVE)
--- NOTE | 2017-07-10 12:11 | GDS ---
[f rep st] DISCHARGE SUMMARY DISCHARGE DIAGNOSES: 1. Uncontrolled hypertension, hypertensive urgency. 2. Left side and facial weakness, resolved. 3. Acute headache. 4. Atrial fibrillation. 5. Breast cancer. CONSULTATION: Dr. Arjun Lucio with Neurology. HISTORY OF PRESENT ILLNESS: Briefly, the patient is an 82-year-old female with a history of hypertension as well as atrial fibrillation, recent diagnosis of recurrent breast cancer. She had been getting radiation for the past 5 days and every time she received radiation, her blood pressure became extremely high. She was given clonidine to use as needed by her oncologist. In spite of this, her blood pressure was over 200 with associated headache. She also had transient left-sided numbness and tingling to her left side of her body including her face that resolved quickly. She went to see her supervisor packing and with her neurologic symptoms, she was recommended to come to the emergency department. Her weakness resolved. She was seen and evaluated by Dr. Lucio. He noted her transient neurological symptoms were in the setting of an acceleration in her blood pressure. With treatment of the hypertensin, she had resolution of this. She is also anticoagulated. She is feeling overall better. Today, she feels that her head has a fullness that has been going on for several days. She will be discharged home and follow up with her primary care provider as well as her supervisor packing and oncologist. HOSPITAL COURSE: Per problem: 1. Hypertensive urgency. Her lisinopril dose has been doubled, b.i.d. In addition, she has been given p.r.n. hydralazine with good results. I gave her prescription to take this with her for her radiation appointment and to use this instead of the clonidine. 2. Weakness on left side of her body. This is likely secondary to hypertensive urgency, resolved. 3. Headache. I reviewed her CT scan which showed nothing acute. She has chronic gliosis. Her headache did improve with resolution of her blood pressure. 4. Atrial fibrillation. She has a pacemaker in place and is paced. Her pacer was interrogated. It is stable. 5. Breast cancer. Her next radiation is scheduled for Wednesday. DISCHARGE CONDITION: Stable. Blood pressure is 138/70, heart rate is 60, respiratory rate is 20, O2 saturation on room air 95%, temperature is 36.9 Celsius. MEDICATIONS AT DISCHARGE: Please see the EMR. DISCHARGE INSTRUCTIONS: 1. To follow up with Dr. Graves. 2. To follow up with Dr. Patel. 3. To take the hydralazine p.r.n. as written for systolic greater than 160. /[id number]/MODL MTDD
== END 2017-07-09 15:54 | disposition home or self-care (01) | DRG 305 ==
LOC: INTOOBSV 14:59 → F3N 17:50 → OBSVTOIN 07-08 14:14
PROVIDERS: ADMIT Internal Medicine; ATTEND Internal Medicine
DX: I16.0 Hypertensive urgency (principal); G45.9 Transient cerebral ischemic attack, unspecified; C79.81 Secondary malignant neoplasm of breast; I48.91 Unspecified atrial fibrillation; M32.9 Systemic lupus erythematosus, unspecified; Z85.3 Personal history of malignant neoplasm of breast; Z95.0 Presence of cardiac pacemaker
CPT/HCPCS: G0378

== ENCOUNTER → 2017-08-19 | Outpatient (CLI) | payer OTHER, BC | LOC: FIMAGING 14:05 | PROVIDERS: ATTEND Physician Assistant | DX: R05 Cough (principal); I51.9 Heart disease, unspecified ==

== ENCOUNTER 2017-08-21 12:30 | Inpatient (IN) | payer OTHER, BC ==
[2017-08-21] MEDS ORDERED: ONDANSETRON 4 MG/2 ML VIAL IVP ONE (13:16)
[2017-08-21] MEDS ORDERED: NS 1,000 ML IV ONE ×2 (13:19→15:04)
[2017-08-21 13:27] LABS: PLATELET COUNT 160 10^3/uL (150-400)
--- NOTE | 2017-08-21 13:27 | EDPHY ---
H & P Stated Complaint: weakness & nausea, cancer patient Time Seen by Provider: 08/21/17 13:15 HPI/ROS: CHIEF COMPLAINT: Weakness, nausea HISTORY OF PRESENT ILLNESS: The patient is an 82-year-old female who comes to the emergency department with concerns for dehydration and weakness. She has recurrent right breast cancer and is currently going through radiation therapy daily. She states that on Wednesday she was weak and lightheaded and Dr. Graves took her to the infusion center gave her IV fluids and nausea medication. She felt much better but thinks that her symptoms have returned. She is not having diarrhea. She states that if she tries to eat it makes her vomit. She feels dehydrated and thirsty. She has not had a fever. She is requesting that we give her IV fluids and nausea medication. She also has a history of atrial fibrillation and pacemaker and is on Eliquis. She also has history of lupus and hypothyroidism. She is not currently on steroids. REVIEW OF SYSTEMS: Constitutional: Generalized weakness denies: chills, fever, recent illness, recent injury EENTM: denies: blurred vision, double vision, nose congestion Respiratory: denies: cough, shortness of breath Cardiac: denies: chest pain, irregular heart rate, lightheadedness, palpitations Gastrointestinal/Abdominal: See HPI denies: abdominal pain, diarrhea, blood streaked stools Genitourinary: denies: dysuria, frequency, hematuria, pain Musculoskeletal: denies: joint pain, muscle pain Skin: denies: lesions, rash, jaundice, bruising Neurological: denies: headache, numbness, paresthesia, tingling, dizziness, weakness Hematologic/Lymphatic: denies: blood clots, easy bleeding, easy bruising Immunologic/allergic: denies: HIV/AIDS, transplant EXAM: GENERAL: Well-appearing, well-nourished and in no acute distress. HEAD: Atraumatic, normocephalic. EYES: Pupils equal round and reactive to light, extraocular movements intact, sclera anicteric, conjunctiva are normal. ENT: TMs normal, nares patent, oropharynx clear without exudates. Dry mucous membranes. NECK: Normal range of motion, supple without lymphadenopathy or JVD. LUNGS: Breath sounds clear to auscultation bilaterally and equal. No wheezes rales or rhonchi. HEART: Regular rate and rhythm without murmurs, rubs or gallops. ABDOMEN: Soft, nontender, normoactive bowel sounds. No guarding, no rebound. No masses appreciated. BACK: No CVA tenderness, no spinal tenderness, step-offs or deformities EXTREMITIES: Normal range of motion, no pitting or edema. No clubbing or cyanosis. NEUROLOGICAL: Cranial nerves II through XII grossly intact. Normal speech, normal gait. 5/5 strength, normal movement in all extremities, normal sensation PSYCH: Normal mood, normal affect. SKIN: Radiation excoriation over chest, erythematous and tender. Scaly Source: Patient Exam Limitations: No limitations - Medical/Surgical History Hx Asthma: No Hx Chronic Respiratory Disease: No Hx Diabetes: No Hx Cardiac Disease: Yes Hx Renal Disease: No Hx Cirrhosis: No Hx Alcoholism: No Hx HIV/AIDS: No Hx Splenectomy or Spleen Trauma: No Other PMH: HTN, lupus, pacemaker, appy, breast CA (rt side), a-fib - Family History Significant Family History: No pertinent family hx - Social History Smoking Status: Never smoked Alcohol Use: Sober Drug Use: None Constitutional: Initial Vital Signs Temperature (C) 37.6 C 08/21/17 12:33 Heart Rate 93 08/21/17 12:33 Respiratory Rate 18 08/21/17 12:33 Blood Pressure 108/71 08/21/17 12:33 O2 Sat (%) 95 08/21/17 12:33 O2 Delivery Mode Room Air Allergies/Adverse Reactions: No Known Allergies Allergy (Verified 08/21/17 12:32) Home Medications: Medication Instructions Recorded Apixaban [Eliquis] 2.5 mg PO BID 05/31/17 Butalbit/Acetamin/Caff/Codeine 0.5 each PO DAILY PRN 07/07/17 [[id number]-Krqc-Tqqegabaxoe-Codein] Hydroxychloroquine Sulfate 200 mg PO DAILY 07/07/17 [Plaquenil 200 mg (*)] hydrALAZINE [Apresoline 10 mg (*)] 5 - 10 mg PO QID PRN #30 tab 07/09/17 Hydrocortisone 1% [Hydrocortisone 1 samra TP BID PRN 08/21/17 1% cream (*)] Levothyroxine [Synthroid 25 mcg 12.5 mcg PO DAILY06 08/21/17 (*)] Lisinopril [Zestril 5 mg (*)] 5 mg PO BID 08/21/17 Metoprolol Succinate Xr [Toprol Xl 12.5 mg PO BID 08/21/17 25 mg (*)] Medical Decision Making - Diagnostics EKG Interpretation: An EKG obtained and was read and documented in trace view. Please see trace view for full reading and report. Ventricular paced rhythm, unchanged from previous ED Course/Re-evaluation: 3:00 p.m. the patient is not feeling much better. I will treat her with another L of fluid. Her nausea is resolved. She is still hopeful to go home. 4:45 p.m. I discussed the case with Dr. Yung Colunga. He recommends recheck urinalysis and will consult. Differential Diagnosis: Partial list of the Differential diagnosis considered include but were not limited to; dehydration, malnutrition, anemia and although unlikely based on the history and physical exam, I also considered infection, obstruction, CVA, hemorrhage. - Data Points Laboratory Results: Laboratory Results 08/21/17 13:13 08/21/17 13:13 08/21/17 08/21/17 08/21/17 13:13 13:13 13:13 WBC 5.03 10^3/uL 10^3/uL (3.80-9.50) RBC 3.41 10^6/uL L 10^6/uL (4.18-5.33) Hgb 11.7 g/dL L g/dL (12.6-16.3) Hct 32.3 % L % (38.0-47.0) MCV 94.7 fL fL (81.5-99.8) MCH 34.3 pg H pg (27.9-34.1) MCHC 36.2 g/dL g/dL (32.4-36.7) RDW 12.6 % % (11.5-15.2) Plt Count 160 10^3/uL 10^3/uL (150-400) MPV 9.2 fL fL (8.7-11.7) Neut % (Auto) 78.7 % H % (39.3-74.2) Lymph % (Auto) 6.0 % L % (15.0-45.0) Bailey % (Auto) 13.9 % H % (4.5-13.0) Eos % (Auto) 0.8 % % (0.6-7.6) Baso % (Auto) 0.2 % L % (0.3-1.7) Nucleat RBC Rel Count 0.0 % % (0.0-0.2) Absolute Neuts (auto) 3.96 10^3/uL 10^3/uL (1.70-6.50) Absolute Lymphs (auto) 0.30 10^3/uL L 10^3/uL (1.00-3.00) Absolute Monos (auto) 0.70 10^3/uL 10^3/uL (0.30-0.80) Absolute Eos (auto) 0.04 10^3/uL 10^3/uL (0.03-0.40) Absolute Basos (auto) 0.01 10^3/uL L 10^3/uL (0.02-0.10) Absolute Nucleated RBC 0.00 10^3/uL 10^3/uL (0-0.01) Immature Gran % 0.4 % % (0.0-1.1) Immature Gran # 0.02 10^3/uL 10^3/uL (0.00-0.10) Sodium 134 mEq/L L mEq/L (135-145) Potassium 4.2 mEq/L mEq/L (3.5-5.2) Chloride 99 mEq/L mEq/L (97-110) Carbon Dioxide 25 mEq/l mEq/l (22-31) Anion Gap 10 mEq/L mEq/L (8-16) BUN 18 mg/dL mg/dL (7-23) Creatinine 0.8 mg/dL mg/dL (0.6-1.0) Estimated GFR > 60 Glucose 110 mg/dL H mg/dL (70-100) Calcium 9.0 mg/dL mg/dL (8.5-10.4) TSH 2.150 uIU/mL uIU/mL (0.465-4.680) Free T4 1.67 ng/dL ng/dL (0.59-2.19) Urine Color YELLOW Urine Appearance CLEAR Urine pH 7.0 (5.0-7.5) Ur Specific Neal 1.013 (1.002-1.030) Urine Protein NEGATIVE (NEGATIVE) Urine Ketones NEGATIVE (NEGATIVE) Urine Blood NEGATIVE (NEGATIVE) Urine Nitrate NEGATIVE (NEGATIVE) Urine Bilirubin NEGATIVE (NEGATIVE) Urine Urobilinogen 4.0 EU H EU (0.2-1.0) Ur Leukocyte Esterase NEGATIVE (NEGATIVE) Urine RBC 1-3 /hpf /hpf (0-3) Urine WBC 1-3 /hpf /hpf (0-3) Ur Epithelial Cells TRACE /lpf /lpf (NONE-1+) Urine Bacteria 1+ /hpf H /hpf (NONE SEEN) Hyaline Casts 1-5 /lpf /lpf (0-1) Urine Mucus TRACE /lpf /lpf (NONE-1+) Urine Glucose NEGATIVE (NEGATIVE) Medications Given: Discontinued Medications Dexamethasone (Decadron Injection) 10 mg IVP EDNOW ONE Stop: 08/21/17 15:55 Last Admin: 08/21/17 16:00 Dose: 10 mg Sodium Chloride (Ns) 1,000 mls @ 0 mls/hr IV EDNOW ONE; Wide Open PRN Reason: Protocol Stop: 08/21/17 13:20 Last Admin: 08/21/17 13:31 Dose: 1,000 mls Sodium Chloride (Ns) 1,000 mls @ 0 mls/hr IV EDNOW ONE; Wide Open PRN Reason: Protocol Stop: 08/21/17 15:05 Last Admin: 08/21/17 15:10 Dose: 1,000 mls Ondansetron HCl (Zofran) 4 mg IVP EDNOW ONE Stop: 08/21/17 13:17 Last Admin: 08/21/17 13:31 Dose: 4 mg Departure - Departure Disposition: [facility] Acute Clinical Impression: Dehydration Breast cancer Qualifiers: Breast location: unspecified site of breast Estrogen receptor status: unspecified Patient sex: female Laterality: right Qualified Code(s): C50.911 - Malignant neoplasm of unspecified site of right female breast Anemia Qualifiers: Anemia type: unspecified type Qualified Code(s): D64.9 - Anemia, unspecified Condition: Fair
--- NOTE | 2017-08-21 15:03 | CPEKG ---
Heart Rate: 93 RR Interval: 645 P-R Interval: 160 QRSD Interval: 132 QT Interval: 436 QTC Interval: 543 P [place]: 0 QRS [place]: 40 T Wave [place]: 65 EKG Severity - ABNORMAL ECG - EKG Impression: VENTRICULAR-PACED COMPLEXES Electronically Signed By: Arjun Renee 21-Aug-2017 15:11:10
[2017-08-21] MEDS ORDERED: DEXAMETHASONE 10 MG/ML VIAL IVP ONE (15:54)
[2017-08-21] MEDS ORDERED: PROMETHAZINE HCL 25 MG/ML INJ IVP PRN (18:21)
[2017-08-21] MEDS ORDERED: NS 1,000 ML IV SCH (18:30)
[2017-08-21] MEDS: HYDROCORTISONE 1% CREAM TP PRN (20:51)
[2017-08-21] MEDS: METOPROLOL SUCCINATE XR 25 MG TAB PO SCH (20:53)
[2017-08-21] MEDS: APIXABAN 2.5 MG TAB PO SCH (20:54)
--- NOTE | 2017-08-21 22:50 | HOSPPROG ---
Hospitalist Progress Note Objective: Vital Signs Temp Pulse Resp BP Pulse Ox 36.9 C 86 16 111/58 L 94 08/21/17 20:00 08/21/17 20:53 08/21/17 20:00 08/21/17 20:53 08/21/17 20:00 08/20/17 08/21/17 08/22/17 06:59 06:59 06:59 Intake Total 2049 Balance 2049 ICD10 Worksheet Patient Problems: Problems Problem Status Onset Anemia Acute Breast cancer Acute Dehydration Acute Headache Acute Hypertension Acute Hypertensive emergency Acute TIA (transient ischemic attack) Acute
--- NOTE | 2017-08-21 22:54 | PDGENHP ---
History and Physical History and Physical: CC: Weakness nausea dehydration HISTORY: This cancer patient comes into the emergency room complaining of weakness nausea and dehydration worsening over the past few days. The symptoms do include some mild fevers notice some diffuse myalgias and arthralgias, some headache, severe nausea and inability to take in food or fluids, no diarrhea or bleeding. There are some symptoms of nasal and sinus congestion and a bit of a cough but no shortness of breath or chest symptoms. She has not been around anyone else who is ill with similar symptoms that she knows of, has not traveled anywhere. She is currently receiving radiation therapy for a deep dermal recurrence of breast cancer was on the right anterior chest wall skin area. She is complaining of some symptoms from the radiation burn that she has to the skin there. She is putting steroid cream on that area. ROS: A comprehensive 10 system review revealed no other significant findings PAST MEDICAL HISTORY: Breast cancer 12 years ago with lumpectomy and radiation then, followed by recurrence about a year ago with mastectomy, and now a skin recurrence anterior chest wall initially resected but with further recurrence is now receiving radiation treatments -hypothyroidism -atrial fibrillation -pacemaker -lupus FAMILY MEDICAL HISTORY: No specific illnesses that would relate to her current acute infectious sending syndrome SOCIAL HISTORY: approximately 7 years ago No tobacco or alcohol MEDICATIONS: The patients list has been reconciled by our clinical pharmacist in the EMR. I have reviewed the list and ordered appropriate medicines. PHYSICAL EXAMINATION: Vital Signs: Highest temperature so far 37.6, vitals otherwise stable Deep Fat Cook Fry: Examination: General: alert, oriented, good mentation, relaxed Skin: warm, dry, good color, no rash HEENT: normal Neck: no mass or jvd Resps: relaxed Lungs: clear breath sounds Heart: regular, no murmur Abdomen: soft, nondistended, nontender, +BS, no mass Upper Extremities: normal Lower Extremities: no edema, warm No Bleeding or bruising Neurologic: normal speech/language, normal medical imaging technician, no focal weakness IV site: looks normal LABORATORY DATA: Mild normocytic anemia CC otherwise stable Chemistry panel fairly unremarkable with borderline low sodium 134 UA is unremarkable RADIOLOGY STUDIES: No radiologic studies at this time ASSESSMENT: 1- viral respiratory infection is suggested with nasal and sinus congestion, fever, cough, nausea, myalgias and arthralgias and weakness 2-acute dehydration due to her inability to take in fluids with her above illness 3- severe weakness deconditioning due to the above, not able to ambulate safely at this time 4- recurrent breast cancer currently getting radiation to the chest wall on the right anterior with some ongoing skin burn from that The patient was given IV hydration in the ER but remained quite weak and not really stable on her feet so is being brought into the hospital for further therapy PLANS: -continue IV fluids -respiratory pathogen panel to see if we can identify a specific virus -droplet precautions and isolation -DVT prophylaxis I have reviewed the patient's case in detail with Dr. Arjun Renee I have reviewed the patient's past medical records as part of this assessment, including previous hospital admissions and laboratory data
--- NOTE | 2017-08-21 23:36 | PDMN ---
Medical Necessity Medical necessity: C/M review: est. > 2 MN LOS for ongoing med nec for eval and TX of acute and persistent - viral respiratory infection, dehydration, inability to take oral fluids or food, severe weakness, deconditioning requiring planned Wound Care consult, ongoing IV fluids, droplet precautions and isolation, comorbid breast cancer currently treated with radiation to the chest wall on the right anterior with some ongoing skin burn from that present on admit, history of hypothyroidism, atrial fibrillation, pacemaker, lupus per H /P.
[2017-08-22] MEDS ORDERED: hydrALAZINE 10 MG TAB PO PRN (01:10)
[2017-08-22] MEDS: LISINOPRIL 5 MG TAB PO SCH ×3 (01:22→20:50)
[2017-08-22 05:34] LABS: PLATELET COUNT 168 10^3/uL (150-400)
[2017-08-22] MEDS: LEVOTHYROXINE 25 MCG TAB PO SCH (06:10)
[2017-08-22] MEDS: HYDROXYCHLOROQUINE SULFATE 200 MG TAB PO SCH (09:57)
[2017-08-22] MEDS: APIXABAN 2.5 MG TAB PO SCH ×2 (09:57→20:50)
[2017-08-22] MEDS: METOPROLOL SUCCINATE XR 25 MG TAB PO SCH ×2 (09:58→20:50)
--- NOTE | 2017-08-22 12:38 | WOCRNPDOC ---
WOCRN Advanced Assessment Note - Skin Integrity Problem, Advanced Assess Right Chest Dressing Type: Other Other Dressing Type: disposable brief Dressing Description: Clean/Dry, Intact Exudate Amount: Minimal Exudate Color: Reddish/Yellow Exudate Characteristic(s): Serosanguinous Integumentary Issue Intervention: Visualized Under Dressing Ros Wound Tissue: Ecchymotic, Hot, Painful/Tender Wound Bed Color: Brown, Red, Yellow Wound Bed Constitution: Dried Exudate Wound Edges: Well Defined Site Measurement - Head-to-Toe Length X Width X Depth (cm): [id number] Skin Integrity Problem Comment: Patient with radiation associated dermatitis to right anterior chest wall. Area reddened with yellow, raised, flaky areas. Patient states that showering and virtually anything touching the wound is excruciating. There is one area in the proximal wound that has opened beneath a yellow, flaky area but it is so painful to the touch that this RN did not investigate further. Will place orders to cover with Radiagel. Plan discussed with SARAH Etienne. Wound care will round again later this week.
--- NOTE | 2017-08-22 17:27 | ASMTCMCOM ---
CM Note CM Note Notes: Reviewed chart. Pt admitted w/severe weakness, dehyd, resp infection. DC needs not clear yet. PT rec pending. Pt is either or , has daughter who lives locally. CM will follow. Date Signed: 08/22/2017 05:26 PM Electronically Signed By:Erika Taylor RN
--- NOTE | 2017-08-22 18:15 | GCON ---
[f rep st] CONSULTATION MEDICAL ONCOLOGY FOLLOWUP CONSULTATION DATE OF CONSULTATION: 08/22/2017 CONSULTATION REQUESTED BY: Dr. Herman Tipton. REASON FOR CONSULTATION: Ongoing management of locally recurrent adenocarcinoma of the breast. RECOMMENDATIONS: 1. Agree with hydration as you have done. 2. If the patient is able to tolerate adequate food and fluids, she will hopefully be able to be dis charged in the morning. 3. She has 3 radiation treatments to go to her right anterior chest wall. I think we should look at resuming this on Thursday, August 24, 2017. 4. Since the patient is apprehensive about starting her exemestane, I would suggest that she start t hat after radiation is completed and also perhaps start out at 1 every other day until we are sure sh karly is tolerating it since she has had hypertensive crises with antiestrogen therapy in the past. 5. The patient should follow up with her primary oncologist, Dr. Ruben Graves, the 1st full week in August 2017. ASSESSMENT: This is an 82-year-old white female with a history of adenocarcinoma of the right breast , which was initially diagnosed in 2001 and which is locally recurrent, was admitted to the hospital last evening after she became dehydrated at home. She has been undergoing a 7 week course of radiati on to her right chest wall. She has 3 doses remaining. Over the past couple of weeks, she has had a more difficult time maintaining adequate food and fluid intake. Her son saw her yesterday and broug ht her to the emergency room for further evaluation. In the emergency room, she was found to be dehy drated and had a cough and was admitted for further evaluation and treatment. She has responded very well to fluid resuscitation and is hungry today. Provided that there are no new clinical events cathleen t are of significance, hopefully she will be able to be discharged tomorrow. The patient has tried tamoxifen as well as letrozole in the past. She tells me that she has had hype rtensive crisis with starting each of those medications. She stopped them on her own. At this time, she realizes that because of this chest wall recurrence that she needs to give the aromatase inhibit ors a try once again. She has not been on exemestane and this, I think, is a reasonable choice for h er. Because of her apprehension and difficulty with p.o. intake, I have suggested we finish the radi ation before starting on the exemestane and at that time, perhaps starting it every other day for a c ouple of weeks until we are sure she is tolerating it. I also suggest that we monitor her blood pres sure closely as an outpatient. She does take lisinopril for her blood pressure at home. HISTORY OF PRESENT ILLNESS: Please see assessment. PAST MEDICAL HISTORY: Remarkable for cancer in the right breast, upper outer quadrant, diagnosed in 2001. Her staging at that time was 2A. She was estrogen/progesterone receptor positive and HER-2 ne gative. She has had a mastectomy. Her past medical history is also remarkable for lupus. She has h ad pleurisy from that in the past. She also has a pacemaker situated in her left chest wall. FAMILY HISTORY: Noncontributory to this admission. SOCIAL HISTORY: The patient is a . Her from pancreatic cancer a few years ago. S he has a daughter who is in town. REVIEW OF SYSTEMS: Remarkable for decreased oral intake and irritation of the right chest wall from her radiation. She has also had a decrease in appetite. She reports no nausea or vomiting. She rep orts no abdominal pain. Her 10 system review is otherwise unremarkable. PHYSICAL EXAMINATION: GENERAL APPEARANCE: Reveals an alert elderly woman sitting up in bed. NECK: Her neck shows no adenopathy. RESPIRATORY: Her lungs are clear to auscultation today. Chest wall shows a pacemaker placed in the left anterior chest. Right chest wall shows erythema and desquamatio n from her radiation therapy. ABDOMEN: Abdominal exam shows active bowel sounds. Soft abdomen. LABORATORY DATA: Her CBC today showed a white count of 2.66 with a hemoglobin of 12.5 and a platelet count of 168,000. Her chemistry showed a normal creatinine of 0.7, and albumin of 3.2, normal liver functions otherwise. Her TSH was normal at 2.15. Thank you very much for allowing me to participate in this pleasant woman's oncologic management. We will follow with you during this hospitalization and beyond. /[id number]/MODL
--- NOTE | 2017-08-22 20:01 | HOSPPROG ---
Hospitalist Progress Note Assessment/Plan: The patient is a 82-year-old female with PMH breast cancer on active chemotherapy and radiation who was admitted for dehydration, viral bronchitis/ URI. ASSESSMENT/PLAN: Acute viral URI/bronchitis-Respiratory panel pending -O2/SVNs prn -On Tamiflu Recurrent breast cancer of chest wall, s/p R mastectomy, currently on radiation Radiation burn/wound to chest wall -HemOnc consulted - recs appreciated. -resume radiation on Wednesday if pt is feeling better -Start exemestane after radiation -Wound care -steroid cream for inflammation SLE -hydroxychloroquine Hypothyroidism -continue thyroid med AF, on chronic AC s/p Pacer HTN -continue cardiac meds. VTE prophylaxis: Lovenox Code Status: Full code Status: Inpatient for greater than 2 midnight stay. Disposition: Med surg with anticipated discharge tomorrow if patient is feeling better. ____ SUBJECTIVE: Today the patient feels well. Has no breathing complaints. She is concerned about the wound on her chest and how to dress it. She really wants to resume her radiation tomorrow as well as her chemotherapy (estrogen antagonist) while she is inpatient. OBJECTIVE: Physical Exam: General: The patient is an elderly female who is alert and in no acute distress. HEENT: normocephalic, extraocular movements intact, conjunctivae clear. Mucous membranes moist. Neck: trachea midline, no visible masses. CV: +S1/S2, RRR, no MRG. Resp: unlabored, CTAB no RRW. Abd: soft and nondistended. Musculoskeletal: Normal muscle tone/bulk. Neuro: cranial nerves II XII grossly intact. Intact gross motor and sensory function. Psych: Anxious mood and appropriate affect. Skin: No pallor. No petechiae. +extensive burn/wound from radiation on mid- right chest with sloughing skin - very tender. Heme/lymph: No peripheral edema at bilateral lower extremities. Labs/Imaging/Other Tests: Personally reviewed/interpreted. WBC 2.66, hemoglobin 12.5. EKG-ventricular paced rhythm. Objective: Vital Signs Temp Pulse Resp BP Pulse Ox 36.8 C 83 16 155/86 H 96 08/22/17 19:48 08/22/17 19:48 08/22/17 19:48 08/22/17 19:48 08/22/17 19:48 Microbiology 08/21/17 21:10 Respiratory Panel (PCR) - Final Nasal, Sinus - [place] Viral Transport No Organism Detected Laboratory Results 08/22/17 04:31 08/22/17 04:31 08/21/17 08/22/17 08/23/17 05:59 05:59 05:59 Intake Total 1196 1060 Balance 1196 1060 ICD10 Worksheet Patient Problems: Problems Problem Status Onset Anemia Acute Breast cancer Acute Dehydration Acute Headache Acute Hypertension Acute Hypertensive emergency Acute TIA (transient ischemic attack) Acute
[2017-08-23 05:23] LABS: PLATELET COUNT 168 10^3/uL (150-400)
[2017-08-23] MEDS: LEVOTHYROXINE 25 MCG TAB PO SCH (06:25)
[2017-08-23] MEDS: APIXABAN 2.5 MG TAB PO SCH ×2 (10:19→21:03)
[2017-08-23] MEDS: HYDROXYCHLOROQUINE SULFATE 200 MG TAB PO SCH (10:19)
[2017-08-23] MEDS: LISINOPRIL 5 MG TAB PO SCH ×2 (10:20→21:03)
[2017-08-23] MEDS: METOPROLOL SUCCINATE XR 25 MG TAB PO SCH ×2 (10:20→21:02)
--- NOTE | 2017-08-23 11:27 | CPEKG ---
Heart Rate: 92 RR Interval: 652 P-R Interval: 132 QRSD Interval: 130 QT Interval: 432 QTC Interval: 535 P [place]: 0 QRS [place]: 28 T Wave [place]: 113 EKG Severity - ABNORMAL ECG - EKG Impression: Sinus rhythm, first degree AV block, VENTRICULAR-PACED COMPLEXES Electronically Signed For: Jake Lizarraga 23-Aug-2017 11:31:10
--- NOTE | 2017-08-23 11:33 | ASMTCMCOM ---
CM Note CM Note Notes: CM met w/ pt for dispo planning. OT is recommending home w/ 24hr supervision. PT is recommending home independent. Pt reports that she is uncertain if she will have radiation tomorrow. CM provided pt list of non skilled home care. Pt reports that she has a supportive daughter and friends that can help out. Pt reports that if she has a need she will notify CM. CM available for d/c needs. Plan: Independent Date Signed: 08/23/2017 11:33 AM Electronically Signed By:MAITE Moss
--- NOTE | 2017-08-23 12:20 | SOAPPROG ---
SOAP Progress Note Assessment/Plan: Assessment: 1. Breast cancer, er+, locally recurrent on chest wall 2. Dizziness and nausea Pt not impoving w/ hydration. Symptoms could be due to radiation, but it is unusual to have nausea this severe, and brain mets are also a possibility. Plan: - brain CT w/ and w/o contrast (can't get MRI due to pacemaker) - would keep pt overnight to see if she feels better - continue antiemetics - radiation -3 fractions to go. will defer until she is feeling better. 08/23/17 12:19 Subjective: pt initially felt better w/ rehydration but now feels the same as she did on the day of admission - dizziness, nausea. Objective: exam: anxious Lungs CTAB CV RRR no MGr ABd: +BS NT Ext: no edema Neuro:a+ox3. nonfocal exam. gait not tested. Vital Signs Temp Pulse Resp BP Pulse Ox 36.9 C 91 16 131/82 H 95 08/23/17 07:51 08/23/17 10:20 08/23/17 07:51 08/23/17 10:20 08/23/17 07:51 Microbiology 08/21/17 21:10 Respiratory Panel (PCR) - Final Nasal, Sinus - [place] Viral Transport No Organism Detected Laboratory Results 08/23/17 04:19 08/22/17 04:31 08/22/17 08/23/17 08/24/17 05:59 05:59 05:59 Intake Total 1196 1810 Balance 1196 1810 - Time Spent With Patient Time Spent With Patient: 25 min ICD10 Worksheet Patient Problems: Problems Problem Status Onset Anemia Acute Breast cancer Acute Dehydration Acute Headache Acute Hypertension Acute Hypertensive emergency Acute TIA (transient ischemic attack) Acute
[2017-08-23] MEDS ORDERED: IOPAMIDOL (ISOVUE-300) 100 ML BTL ONE (13:11)
--- NOTE | 2017-08-23 15:23 | HOSPPROG ---
Hospitalist Progress Note Assessment/Plan: The patient is a 82-year-old female with PMH breast cancer on active chemotherapy and radiation who was admitted for dehydration, viral bronchitis/ URI. Today is my first encounter w the patient, chart reviewed. Reviewed her care with Dr Walker. dizziness and nausea not improved with hydration cont antiemetics CT scan stable unable to MRI due to pacer trial of k pad, small dose of Ativan prn cont iv fluids for now parameters on bp meds/ last time I cared for her, she had high bp, her bp may be low enough to cause the dizziness Acute viral URI resp panel negative oxygen levels stable on room air Recurrent breast cancer of chest wall, s/p R mastectomy, currently on radiation er+ will get radiation once the above symptoms improve Radiation burn -Wound care -steroid cream for inflammation SLE -hydroxychloroquine Hypothyroidism -continue thyroid med AF, on chronic OAC + beta radha s/p Pacer HTN -continue cardiac meds. - parameters placed as to when to hold medications VTE prophylaxis: Lovenox Code Status: Full code plan: start iv hydration, keep another midnight stay for iv fluids, control of nausea and dizziness Subjective: thea says her nausea starts at her legs and works up. Objective: Vital Signs Temp Pulse Resp BP Pulse Ox 36.9 C 91 16 131/82 H 95 08/23/17 07:51 08/23/17 10:20 08/23/17 07:51 08/23/17 10:20 08/23/17 07:51 Microbiology 08/21/17 21:10 Respiratory Panel (PCR) - Final Nasal, Sinus - [place] Viral Transport No Organism Detected Laboratory Results 08/23/17 04:19 08/22/17 04:31 08/22/17 08/23/17 08/24/17 05:59 05:59 05:59 Intake Total 1196 1810 Balance 1196 1810 - Physical Exam Constitutional: appears nourished Eyes: PERRL Ears, Nose, Mouth, Throat: hearing normal Cardiovascular: regular rate and rhythym Respiratory: no respiratory distress Gastrointestinal: normoactive bowel sounds, soft, non-tender abdomen Skin: warm Musculoskeletal: full muscle strength Neurologic: AAOx3, sensation intact bilaterally Psychiatric: anxious ICD10 Worksheet Patient Problems: Problems Problem Status Onset Anemia Acute Breast cancer Acute Dehydration Acute Headache Acute Hypertension Acute Hypertensive emergency Acute TIA (transient ischemic attack) Acute
[2017-08-23] MEDS ORDERED: LORazepam 0.5 MG TAB PO PRN (15:46)
[2017-08-23] MEDS: ONDANSETRON 4 MG/2 ML VIAL IVP PRN (17:38)
--- NOTE | 2017-08-23 18:12 | CPEKG ---
Heart Rate: 84 RR Interval: 714 P-R Interval: 164 QRSD Interval: 150 QT Interval: 456 QTC Interval: 540 P [place]: 0 QRS [place]: 101 EKG Severity - ABNORMAL ECG - EKG Impression: A sensed VENTRICULAR-PACED COMPLEXES Electronically Signed By: Jake Lizarraga 25-Aug-2017 08:01:11
[2017-08-23] MEDS: NS 1,000 ML IV SCH (21:08)
[2017-08-23] MEDS: MELATONIN 3 MG TAB PO SCH (23:47)
[2017-08-24] MEDS: ACETAMINOPHEN 325 MG TAB PO PRN (00:56)
[2017-08-24] MEDS: NS 1,000 ML IV SCH ×2 (01:13→14:08)
[2017-08-24] MEDS ORDERED: oxyCODONE IR 5 MG TAB PO PRN (02:54)
[2017-08-24] MEDS: ACET/CAFFEINE/BUTA FIORICET 1 EACH TAB PO PRN ×4 (03:27→22:17)
[2017-08-24] MEDS: LEVOTHYROXINE 25 MCG TAB PO SCH (05:07)
[2017-08-24] MEDS: APIXABAN 2.5 MG TAB PO SCH ×2 (10:14→21:00)
[2017-08-24] MEDS: ONDANSETRON 4 MG/2 ML VIAL IVP PRN (10:14)
[2017-08-24] MEDS: METOPROLOL SUCCINATE XR 25 MG TAB PO SCH ×2 (10:14→20:56)
[2017-08-24] MEDS: LISINOPRIL 5 MG TAB PO SCH ×2 (10:14→20:59)
[2017-08-24] MEDS: HYDROXYCHLOROQUINE SULFATE 200 MG TAB PO SCH (10:16)
--- NOTE | 2017-08-24 10:25 | HOSPPROG ---
Hospitalist Progress Note Assessment/Plan: The patient is a 82-year-old female with PMH breast cancer on active chemotherapy and radiation who was admitted for dehydration, viral bronchitis/ URI. Reviewed her care with Dr Zaidi. dizziness and nausea CT scan stable/ no metastasis unable to MRI due to pacer trial of k pad, small dose of Ativan prn patient states she passed out yesterday in shower, will get echo to further evaluate parameters on bp meds/ last time I cared for her, she had high bp, her bp may be low enough to cause the dizziness no nausea today bump troponin will get an echo to further evaluate Acute viral URI, bronchitis resp panel negative oxygen levels stable on room air Recurrent breast cancer of chest wall, s/p R mastectomy, currently on radiation er+ will get radiation once the above symptoms improve Radiation burn -Wound care -steroid cream for inflammation SLE -hydroxychloroquine Hypothyroidism -continue thyroid med AF, on chronic OAC + beta radha s/p Pacer HTN -continue cardiac meds. - parameters placed as to when to hold medications VTE prophylaxis: Lovenox Code Status: Full code plan: I suspect much of her lightheadedness and nausea may be related to increasingly being anxious and side effects of radiation. She is fearful about going home and living alone. She's concerned if she passes out, no-one is there. For now will cont IV hydration, check an echocardiogram to rule out any cardiac etiology. Recommending on dc, she has home care to f/u with her. Subjective: Naomy is feeling better than last night but not well enough for discharge. Objective: Vital Signs Temp Pulse Resp BP Pulse Ox 36.8 C 93 18 135/86 H 97 08/24/17 08:00 08/24/17 08:00 08/24/17 08:00 08/24/17 08:00 08/24/17 08:00 Laboratory Results 08/23/17 04:19 08/22/17 04:31 08/23/17 08/24/17 08/25/17 05:59 05:59 05:59 Intake Total 1810 1800 Output Total 300 Balance 1810 1500 - Physical Exam Constitutional: no apparent distress, appears nourished, not in pain Eyes: PERRL Ears, Nose, Mouth, Throat: hearing normal Gastrointestinal: normoactive bowel sounds Skin: other (right chest wall area with mcrae, peeling, redness) Musculoskeletal: full muscle strength Neurologic: AAOx3 Psychiatric: interacting appropriately, not encephalopathic, thought process linear, anxious ICD10 Worksheet Patient Problems: Problems Problem Status Onset Anemia Acute Breast cancer Acute Dehydration Acute Headache Acute Hypertension Acute Hypertensive emergency Acute TIA (transient ischemic attack) Acute
--- NOTE | 2017-08-24 10:42 | SOAPPROG ---
SOAP Progress Note Assessment/Plan: Assessment: 1. Breast cancer, er+, locally recurrent on chest wall 2. Dizziness and nausea CT head negative for brain mets. Suspect cardiac cause (transient AF w/ RVR or hypotension). May also be side effect of radiation. Plan: - will hold RT for now until she is feeling better - cardiac eval ongoing - CA27.29 on 08/12 mildly elevated (53). Dtr had asked to repeat but too soon to see any meaningful change, will defer for another month or so. Subjective: feels about the same. had a near-syncopal episode last night. Objective: exam unchanged Vital Signs Temp Pulse Resp BP Pulse Ox 36.8 C 93 18 135/86 H 97 08/24/17 08:00 08/24/17 08:00 08/24/17 08:00 08/24/17 08:00 08/24/17 08:00 Laboratory Results 08/23/17 04:19 08/22/17 04:31 08/23/17 08/24/17 08/25/17 05:59 05:59 05:59 Intake Total 1810 1800 Output Total 300 Balance 1810 1500 ICD10 Worksheet Patient Problems: Problems Problem Status Onset Anemia Acute Breast cancer Acute Dehydration Acute Headache Acute Hypertension Acute Hypertensive emergency Acute TIA (transient ischemic attack) Acute
--- NOTE | 2017-08-24 14:37 | ASMTCMCOM ---
CM Note CM Note Notes: CM met w/ pt for dispo planning. CM spoke w/ Manuela, PT and she is recommending SNF. Pt reports that she will discuss w/ her daughter rupesh after she gets out of work at 5 PM. Pt did not want CM to contact daughter. Pt stated that she would like to speak to daughter herself. CM informed pt that there are two SNF in [place]. Pt seems to be agreeable to SNF. Pt reports that the radation wipes her out. CM to follow. Plan: SNF Date Signed: 08/24/2017 02:36 PM Electronically Signed By:MAITE Moss
--- NOTE | 2017-08-24 14:58 | ASMTLACE ---
GERIE Length of stay for Answers: 4-6 days current admission Acuity / Level of Answers: Yes Care: Did the patient have an inpatient admission? Comorbidities - select Answers: History of falls all that apply Other # of Emergency department Answers: 1-2 visits in the last 6 months Score: 12 Date Signed: 08/24/2017 02:58 PM Electronically Signed By:MAITE Moss
[2017-08-24] MEDS: HYDROCORTISONE 1% CREAM TP PRN (15:00)
[2017-08-24] MEDS ORDERED: LACTULOSE 20 GM/30 ML UDCUP PO PRN (15:11)
[2017-08-24] MEDS ORDERED: MAGNESIUM HYDROXIDE 30 ML UDCUP PO PRN (15:11)
[2017-08-24] MEDS: POLYETHYLENE GLYCOL 3350 17 GM PKT PO SCH (16:31)
--- NOTE | 2017-08-24 16:34 | ECHO ---
[email or web address] [address] [address] Main: [phone] Fax: Transthoracic Echocardiogram Name: TRAM MUNOZ MR#: [id number] Study Date: 08/24/2017 Study Time: 10:22 AM Date of : 1935 Age: 82 year(s) Height: 170.2 cm (67 in.) Weight: 68.04 kg (150 lb.) BSA: 1.79 m2 Gender: Female Examination: Echo Indication: Lightheadedness/elevated troponin/Eval EF, Pacer Image Quality: Contrast: Requested by: Karen Kumar BP: 135 mmHg/86 mmHg Heart Rate: Rhythm: Indication: Lightheadedness/elevated troponin/Eval EF, Pacer Procedure Staff Hosiery Bagger: Radha Oseguera [facility] Reading Physician: Jimmy Ross Requesting Provider: Conclusions: Normal size left ventricle. Asymmetrical septal LV hypertrophy. The ejection fraction is estimated to be 60-65 %. LV septal wall 1.49cm, Posterior wall 0.881 cm. Normal size right ventricle. Mild to moderate mitral regurgitation. Mild aortic valve regurgitation is present. The pulmonary artery pressure is normal. No pericardial effusion. Measurements: Chambers Valvular Assessment AV/MV Valvular Assessment TV/PV Normal Normal Normal Name Value Range Name Value Range Name Value Range Ao Nallely (MM): 3.6 cm (2.2 cm-3.7 AV meanP mmHg ( - ) TR Vmax: 2.82 mm/s ( - ) cm) AR (PHT): 449 ms ( - ) TR PGmax: 32 mmHg ( - ) IVSd (2D): 1.6 cm (0.6 cm-1.1 MV E Vmax: 0.62 m/s ( - ) syst. PAP: 37 mmHg ( - ) cm) MV A Vmax: 1.21 m/s ( - ) LVDd (2D): 4.2 cm (3.9 cm-5.3 MV E/A: 0.51 ( - ) cm) LVDs (2D): 2.9 cm (2.1 cm-4 cm) LVPWd (2D): 1.0 cm ( - ) LVEF (MOD4): 70 % (>=55 %) EF Range: 60-65 % Continued Measurements: Chambers Valvular Assessment AV/MV Valvular Assessment TV/PV Patient: TRAM MUNOZ Study Date: 08/24/2017 Page 1 of 2 10:22 AM Name Value Name Value Name Value LADs: 3.4 cm MV E' Septal: 0.04 m/s CVP (est.): 5 mmHg LADs Lon.4 cm MV E/E' Septal: 17.20 LA Area: 23.6 cm2 AR Vmax: 4.00 cm/s Findings: Left Ventricle: Normal size left ventricle. Asymmetrical septal LV hypertrophy. Normal global systolic LV function. The ejection fraction is estimated to be 60-65 %. No regional wall motion abnormality. LV septal wall 1.49cm, Posterior wall 0.881 cm. Right Ventricle: Normal size right ventricle. There is a pacemaker lead noted in the right ventricle. Left Atrium: The left atrium is mildly dilated. Right Atrium: The right atrium is mildly dilated. Mitral Valve: The mitral valve is normal in appearance and function. Mild to moderate mitral regurgitation. Aortic Valve: There is moderate thickening of the aortic cusps. Mild aortic valve regurgitation is present. AV max PG is 17mmHG. AV mean PG is 9mmHG.. Tricuspid Valve: The tricuspid valve is normal in appearance and function. The pulmonary artery pressure is normal. Mild tricuspid regurgitation is present. Pulmonic Valve: The pulmonic valve is normal in appearance and function. Aorta: The aorta is normal. Pericardium: No pericardial effusion. (No Signature Object) Patient: TRAM MUNOZ Study Date: 08/24/2017 Page 2 of 2 10:22 AM [id number]
[2017-08-24] MEDS: [UNRECOGNIZED DRUG - OTHER] PO SCH (18:18)
[2017-08-24] MEDS: SENNOSIDES/DOCUSATE SODIUM TAB PO SCH (20:56)
[2017-08-24] MEDS: MELATONIN 3 MG TAB PO SCH (22:17)
[2017-08-25] MEDS: NS 1,000 ML IV SCH ×2 (03:24→21:03)
[2017-08-25] MEDS: LEVOTHYROXINE 25 MCG TAB PO SCH (05:11)
[2017-08-25] MEDS: ONDANSETRON 4 MG/2 ML VIAL IVP PRN ×2 (08:28→22:46)
[2017-08-25] MEDS: APIXABAN 2.5 MG TAB PO SCH ×2 (08:34→21:01)
[2017-08-25] MEDS: METOPROLOL SUCCINATE XR 25 MG TAB PO SCH ×2 (08:34→21:01)
[2017-08-25] MEDS: SENNOSIDES/DOCUSATE SODIUM TAB PO SCH ×2 (08:36→21:01)
[2017-08-25] MEDS: HYDROXYCHLOROQUINE SULFATE 200 MG TAB PO SCH (08:36)
[2017-08-25] MEDS: LISINOPRIL 5 MG TAB PO SCH ×2 (08:37→21:01)
[2017-08-25] MEDS: POLYETHYLENE GLYCOL 3350 17 GM PKT PO SCH (08:38)
[2017-08-25] MEDS: [UNRECOGNIZED DRUG - OTHER] PO SCH ×2 (08:39→19:19)
--- NOTE | 2017-08-25 10:59 | ASMTCMCOM ---
CM Note CM Note Notes: Spoke w/pt re; dc snf. She requests I speak to her daughter Rosa. She requests I send referrals to [facility], prefers private room. DC Plan: SNF Date Signed: 08/25/2017 10:58 AM Electronically Signed By:Jeanie Monae RN
--- NOTE | 2017-08-25 12:20 | SOAPPROG ---
SOAP Progress Note Assessment/Plan: Assessment: 1. Breast cancer, er+, locally recurrent on chest wall 2. Dizziness and nausea CT head negative for brain mets. Suspect cardiac cause (transient AF w/ RVR or hypotension). May also be side effect of radiation. Unclear to me why she is feeling so poorly - this is unusually severe for a radiation side effect, though it remains the most likely cause. Plan: - will hold RT for now until she is feeling better - cardiac eval ongoing - if discharged to SNF, please have pt see Dr Graves in clinic in the next week or so for ongoing oncologic care 08/25/17 12:18 Subjective: still feeling dizzy, anxious. Objective: exam: anxious Lungs CTAB CV RRR no mGR Abd: +BS NT ND Ext: no edema Neuro: a+ox3 Vital Signs Temp Pulse Resp BP Pulse Ox 37.6 C 101 H 22 H 157/69 H 92 08/25/17 07:42 08/25/17 07:42 08/25/17 07:42 08/25/17 07:42 08/25/17 07:42 Laboratory Results 08/23/17 04:19 08/25/17 09:30 08/24/17 08/25/17 08/26/17 05:59 05:59 05:59 Intake Total 1800 250 Output Total 300 Balance 1500 250 ICD10 Worksheet Patient Problems: Problems Problem Status Onset Anemia Acute Breast cancer Acute Dehydration Acute Headache Acute Hypertension Acute Hypertensive emergency Acute TIA (transient ischemic attack) Acute
[2017-08-25] MEDS: SILVER SULFADIAZINE 50 GM JAR TP SCH (18:13)
--- NOTE | 2017-08-25 18:57 | HOSPPROG ---
Hospitalist Progress Note Assessment/Plan: The patient is a 82-year-old female with PMH breast cancer on active chemotherapy and radiation who was admitted for dehydration, viral bronchitis/ URI. ASSESSMENT/PLAN: New SIRS w/ tachycardia, tachypnea, fever - ?sepsis Gen weakness -Sepsis workup - UA w/ CIND, BCx, procalcitonin. -Wound Cx if it starts oozing/weeping - will probably be low yield though. -Check CXR in AM. Acute viral URI/bronchitis -Respiratory panel negative -O2/SVNs prn -No wheezing, does not need steroid. Recurrent breast cancer of chest wall, s/p R mastectomy, currently on radiation Radiation burn/wound to chest wall -HemOnc consulted - recs appreciated. I have discussed the case w/ Dr. Zaidi. -hold off on radiation and exemestane until pt is much better. -Wound care recs appreciated - I have ordered silver sulfadene, zinc cream. Dehydration, improved -Resume maintenance fluid. SLE -hydroxychloroquine -this does make it harder for pt to heal well. Hypothyroidism -continue thyroid med AF, on chronic AC s/p Pacer HTN -continue cardiac meds. VTE prophylaxis: Eliquis. Code Status: Full code Status: Inpatient for greater than 2 midnight stay. Disposition: Med surg with anticipated discharge when pt is feeling better. ____ SUBJECTIVE: Today the patient feels worse. She had felt better on Mon/Tues but today feels fatigue, malaise. RN concerned bc pt has fever and tachycardia. OBJECTIVE: Physical Exam: General: The patient is an elderly female who is alert and ill appearing and in mild acute distress. HEENT: normocephalic, extraocular movements intact, conjunctivae clear. Mucous membranes dry. Neck: trachea midline, no visible masses. CV: +S1/S2, RRR, no MRG. Resp: unlabored, CTAB no RRW. Abd: soft and nondistended. Musculoskeletal: Normal muscle tone/bulk. Neuro: cranial nerves II XII grossly intact. Intact gross motor and sensory function. Psych: Anxious mood and appropriate affect. Skin: No pallor. No petechiae. +extensive burn/wound from radiation on mid- right chest with sloughing skin - very tender, appears to have a layer of skin about to slough off w/ subQ fluid, but no weeping/purulence. Heme/lymph: No peripheral edema at bilateral lower extremities. Labs/Imaging/Other Tests: Personally reviewed/interpreted. EKG-ventricular paced rhythm. Echo - nl. Objective: Vital Signs Temp Pulse Resp BP Pulse Ox 37.6 C 94 20 149/82 H 91 L 08/25/17 16:00 08/25/17 16:00 08/25/17 16:00 08/25/17 16:00 08/25/17 16:00 Laboratory Results 08/23/17 04:19 08/25/17 09:30 08/24/17 08/25/17 08/26/17 05:59 05:59 05:59 Intake Total 1800 250 Output Total 300 Balance 1500 250 ICD10 Worksheet Patient Problems: Problems Problem Status Onset Anemia Acute Breast cancer Acute Dehydration Acute Headache Acute Hypertension Acute Hypertensive emergency Acute TIA (transient ischemic attack) Acute
[2017-08-25] MEDS ORDERED: NS 1,000 ML IV SCH (19:15)
[2017-08-25] MEDS: BISACODYL 10 MG SUPP PR PRN (19:18)
[2017-08-25] MEDS: MELATONIN 3 MG TAB PO SCH (21:01)
[2017-08-26] MEDS: ONDANSETRON 4 MG/2 ML VIAL IVP PRN (04:41)
[2017-08-26] MEDS: LEVOTHYROXINE 25 MCG TAB PO SCH (04:41)
[2017-08-26 05:45] LABS: PLATELET COUNT 157 10^3/uL (150-400)
[2017-08-26] MEDS: METOPROLOL SUCCINATE XR 25 MG TAB PO SCH ×2 (08:32→20:35)
[2017-08-26] MEDS: APIXABAN 2.5 MG TAB PO SCH ×2 (08:32→20:35)
[2017-08-26] MEDS: LISINOPRIL 5 MG TAB PO SCH ×2 (08:34→20:35)
[2017-08-26] MEDS: HYDROXYCHLOROQUINE SULFATE 200 MG TAB PO SCH (08:37)
[2017-08-26] MEDS: [UNRECOGNIZED DRUG - OTHER] PO SCH ×2 (08:39→19:15)
[2017-08-26] MEDS: SENNOSIDES/DOCUSATE SODIUM TAB PO SCH ×2 (08:40→20:33)
[2017-08-26] MEDS: POLYETHYLENE GLYCOL 3350 17 GM PKT PO SCH (08:41)
[2017-08-26] MEDS ORDERED: MAGNESIUM CITRATE 300 ML BOTTLE PO ONE ×2 (09:42→13:15)
[2017-08-26] MEDS: SILVER SULFADIAZINE 50 GM JAR TP SCH ×2 (10:19→20:41)
--- NOTE | 2017-08-26 12:15 | SOAPPROG ---
SOAP Progress Note Assessment/Plan: Assessment: 1. Breast cancer, er+, locally recurrent on chest wall 2. Dizziness and nausea Feeling better. Suspect RT as cause of symptoms. Plan: - will continue to hold RT for now until she is feeling better - if discharged to SNF, please have pt see Dr Graves in clinic in the next week or so for ongoing oncologic care 08/25/17 12:18 08/26/17 12:14 Subjective: feeling somewhat better today. walked a bit; not as dizzy. some constipation Objective: exam unchanged Vital Signs Temp Pulse Resp BP Pulse Ox 37.3 C 98 20 112/61 92 08/26/17 11:03 08/26/17 11:03 08/26/17 11:03 08/26/17 11:03 08/26/17 11:03 Microbiology 08/25/17 17:50 Gram Stain - Final Chest - Swab Laboratory Results 08/26/17 04:28 08/26/17 04:28 08/25/17 08/26/17 08/27/17 05:59 05:59 05:59 Intake Total 250 Balance 250 ICD10 Worksheet Patient Problems: Problems Problem Status Onset Anemia Acute Breast cancer Acute Dehydration Acute Headache Acute Hypertension Acute Hypertensive emergency Acute TIA (transient ischemic attack) Acute
--- NOTE | 2017-08-26 13:07 | HOSPPROG ---
Hospitalist Progress Note Assessment/Plan: The patient is a 82-year-old female with PMH breast cancer on active chemotherapy and radiation who was admitted for dehydration, viral bronchitis/ URI. First encounter, chart reviewed. D/W CM. #New SIRS w/ tachycardia, tachypnea, fever not septic likely related to radiation #Gen weakness -Sepsis workup negative - UA w/ CIND, BCx, procalcitonin. -Wound Cx if it starts oozing/weeping - will probably be low yield though. -CXR with ATX #Acute viral URI/bronchitis -Respiratory panel negative -O2/SVNs prn -No wheezing, does not need steroid. #Recurrent breast cancer of chest wall, s/p R mastectomy, -currently on radiation #Radiation burn/wound to chest wall -HemOnc consulted - recs appreciated. -hold off on radiation and exemestane until pt is much better. -Wound care recs appreciated #Dehydration, improved -Resume maintenance fluid. #SLE -hydroxychloroquine -this does make it harder for pt to heal well. #Hypothyroidism -continue thyroid med #Constipation -aggressive care #AF, -on chronic AC -s/p Pacer #HTN -continue cardiac meds. #VTE prophylaxis: Eliquis. #Code Status: Full code #Dispo SNF rehab when feeling better Subjective: Sitting at edge of bed. Feeling better then yesteday but not well. Objective: Vital Signs Temp Pulse Resp BP Pulse Ox 37.3 C 98 20 112/61 92 08/26/17 11:03 08/26/17 11:03 08/26/17 11:03 08/26/17 11:03 08/26/17 11:03 Microbiology 08/25/17 17:50 Gram Stain - Final Chest - Swab Laboratory Results 08/26/17 04:28 08/26/17 04:28 08/25/17 08/26/17 08/27/17 05:59 05:59 05:59 Intake Total 250 Balance 250 - Physical Exam Constitutional: appears nourished, chronically ill appearing, uncomfortable Eyes: PERRL, anicteric sclera, EOMI Ears, Nose, Mouth, Throat: moist mucous membranes, hearing normal, ears appear normal Cardiovascular: No JVD, No tachycardia, No edema Respiratory: no respiratory distress, no rales or rhonchi, reduced air movement Gastrointestinal: normoactive bowel sounds, distension, No tenderness, No ascites Skin: warm, normal color, induration Musculoskeletal: normal joint ROM, no joint effusions, generalized weakness Neurologic: AAOx3 Psychiatric: not encephalopathic, anxious, poor insight ICD10 Worksheet Patient Problems: Problems Problem Status Onset Breast cancer Acute Headache Acute Hypertension Acute TIA (transient ischemic attack) Acute Hypertensive emergency Acute Anemia Acute Dehydration Acute
[2017-08-26] MEDS: BISACODYL 10 MG SUPP PR PRN (16:58)
[2017-08-26] MEDS: PREPARATION H 51 GM CRTUBE PR PRN ×2 (16:59→20:44)
[2017-08-26] MEDS: MELATONIN 3 MG TAB PO SCH (20:35)
[2017-08-27] MEDS: ONDANSETRON 4 MG/2 ML VIAL IVP PRN ×2 (00:49→21:31)
[2017-08-27] MEDS: LEVOTHYROXINE 25 MCG TAB PO SCH (05:29)
[2017-08-27] MEDS ORDERED: CARBOXYMETHYLCELLULOSE 0.5% 0.4 ML DROPERETTE EACHEYE PRN (05:39)
[2017-08-27] MEDS: PREPARATION H 51 GM CRTUBE PR PRN ×2 (06:59→18:33)
[2017-08-27] MEDS: APIXABAN 2.5 MG TAB PO SCH ×2 (08:49→21:32)
[2017-08-27] MEDS: HYDROXYCHLOROQUINE SULFATE 200 MG TAB PO SCH (08:51)
[2017-08-27] MEDS: LISINOPRIL 5 MG TAB PO SCH ×2 (08:53→21:31)
[2017-08-27] MEDS: METOPROLOL SUCCINATE XR 25 MG TAB PO SCH ×2 (08:54→21:35)
[2017-08-27] MEDS: [UNRECOGNIZED DRUG - OTHER] PO SCH ×2 (08:57→17:57)
[2017-08-27] MEDS: POLYETHYLENE GLYCOL 3350 17 GM PKT PO SCH (09:14)
[2017-08-27] MEDS: SENNOSIDES/DOCUSATE SODIUM TAB PO SCH ×2 (09:15→21:42)
[2017-08-27] MEDS: SILVER SULFADIAZINE 50 GM JAR TP SCH ×2 (10:41→21:45)
--- NOTE | 2017-08-27 13:32 | HOSPPROG ---
Hospitalist Progress Note Assessment/Plan: The patient is a 82-year-old female with PMH breast cancer on active chemotherapy and radiation who was admitted for dehydration, viral bronchitis/ URI. D/W CM and Dr Wise. #New SIRS w/ tachycardia, tachypnea, fever resolved not septic likely related to radiation #Gen weakness -Sepsis workup negative - UA w/ CIND, BCx, procalcitonin. -CXR with ATX -improving #Acute viral URI/bronchitis -Respiratory panel negative -O2/SVNs prn -No wheezing, does not need steroid. #Recurrent breast cancer of chest wall, s/p R mastectomy, -currently on radiation #Radiation burn/wound to chest wall -HemOnc consulted - recs appreciated. -hold off on radiation and exemestane until pt is much better. -Wound care recs appreciated -MSSA 4+ infection, start ancef change to augmentin in am #Dehydration, improved -stable #SLE -hydroxychloroquine -this does make it harder for pt to heal well. #Hypothyroidism -continue thyroid med #Constipation -resolved #AF -on chronic AC -s/p Pacer #HTN -continue cardiac meds. #VTE prophylaxis: Eliquis. #Code Status: Full code #Dispo SNF rehab when feeling better possibly in am if conts to be stable Subjective: Up in chair. Feels a bit better today. Still weak. Objective: Vital Signs Temp Pulse Resp BP Pulse Ox 37.7 C 90 14 135/85 H 92 08/27/17 13:21 08/27/17 13:21 08/27/17 07:08 08/27/17 13:21 08/27/17 07:08 Microbiology 08/25/17 17:50 Gram Stain - Final Chest - Swab Laboratory Results 08/26/17 04:28 08/26/17 04:28 08/26/17 08/27/17 08/28/17 05:59 05:59 05:59 Intake Total 1650 Balance 1650 - Physical Exam Constitutional: appears nourished, chronically ill appearing, uncomfortable Eyes: PERRL, anicteric sclera, EOMI Ears, Nose, Mouth, Throat: moist mucous membranes, hearing normal, ears appear normal Cardiovascular: No JVD, No tachycardia, No edema Respiratory: no respiratory distress, no rales or rhonchi, reduced air movement Gastrointestinal: normoactive bowel sounds, No tenderness, No ascites Skin: warm, normal color, abrasion Musculoskeletal: no joint effusions, generalized weakness, No pain with ROM Neurologic: AAOx3 Psychiatric: interacting appropriately, not encephalopathic, thought process linear, anxious ICD10 Worksheet Patient Problems: Problems Problem Status Onset Breast cancer Acute Headache Acute Hypertension Acute TIA (transient ischemic attack) Acute Hypertensive emergency Acute Anemia Acute Dehydration Acute
[2017-08-27] MEDS: MELATONIN 3 MG TAB PO SCH (21:31)
[2017-08-27] MEDS: ACETAMINOPHEN 325 MG TAB PO PRN (23:16)
[2017-08-27] MEDS: SODIUM CL NASAL 45 ML BTL EACHNARE PRN (23:20)
[2017-08-28] MEDS: ONDANSETRON 4 MG/2 ML VIAL IVP PRN ×2 (02:11→09:04)
[2017-08-28] MEDS: LEVOTHYROXINE 25 MCG TAB PO SCH (05:02)
[2017-08-28] MEDS: SODIUM CL NASAL 45 ML BTL EACHNARE PRN (05:43)
[2017-08-28] MEDS: METOPROLOL SUCCINATE XR 25 MG TAB PO SCH ×2 (09:00→20:17)
[2017-08-28] MEDS: LISINOPRIL 5 MG TAB PO SCH ×2 (09:02→20:16)
[2017-08-28] MEDS: HYDROXYCHLOROQUINE SULFATE 200 MG TAB PO SCH (09:02)
[2017-08-28] MEDS: APIXABAN 2.5 MG TAB PO SCH ×2 (09:02→20:17)
[2017-08-28] MEDS: [UNRECOGNIZED DRUG - OTHER] PO SCH ×2 (09:03→17:53)
[2017-08-28] MEDS: POLYETHYLENE GLYCOL 3350 17 GM PKT PO SCH (09:04)
[2017-08-28] MEDS: SENNOSIDES/DOCUSATE SODIUM TAB PO SCH ×2 (09:04→21:40)
[2017-08-28] MEDS: SILVER SULFADIAZINE 50 GM JAR TP SCH ×2 (10:30→20:16)
--- NOTE | 2017-08-28 10:34 | HOSPPROG ---
Hospitalist Progress Note Assessment/Plan: The patient is a 82-year-old female with PMH breast cancer on active chemotherapy and radiation who was admitted for dehydration, viral bronchitis/ URI. D/W CM #New SIRS w/ tachycardia, tachypnea, fever resolved not septic likely related to radiation intermittent fever #Gen weakness -Sepsis workup negative - UA w/ CIND, BCx, procalcitonin. -CXR with ATX -severe #Acute viral URI/bronchitis -Respiratory panel negative -O2/SVNs prn -No wheezing, does not need steroid. #Recurrent breast cancer of chest wall, s/p R mastectomy, -currently on radiation #Radiation burn/wound to chest wall -HemOnc consulted - recs appreciated. -hold off on radiation and exemestane until pt is much better. -Wound care recs appreciated -MSSA 4+ infection, start ancef change to augmentin when nausea better #Dehydration, improved -stable #SLE -hydroxychloroquine -this does make it harder for pt to heal well. #Hypothyroidism -continue thyroid med #Constipation -resolved #Nausea -KUB toady -supportive care #AF -on chronic AC -s/p Pacer #HTN -continue cardiac meds. #VTE prophylaxis: Eliquis. #Code Status: Full code #Dispo SNF rehab when feeling better, [facility] in am if conts to be stable Subjective: Very nauseous today. Very weak. Unable to get to bathroom. Objective: Vital Signs Temp Pulse Resp BP Pulse Ox 36.9 C 90 18 112/83 H 93 08/28/17 08:00 08/28/17 09:00 08/28/17 08:00 08/28/17 09:02 08/28/17 08:00 Microbiology 08/25/17 17:50 Gram Stain - Final Chest - Swab Laboratory Results 08/26/17 04:28 08/26/17 04:28 08/27/17 08/28/17 08/29/17 05:59 05:59 05:59 Intake Total 1650 1450 Balance 1650 1450 - Physical Exam Constitutional: not in pain, chronically ill appearing, uncomfortable Eyes: PERRL, anicteric sclera, EOMI Ears, Nose, Mouth, Throat: moist mucous membranes, hearing normal, ears appear normal Cardiovascular: regular rate and rhythym, No JVD, No edema Respiratory: no respiratory distress, no rales or rhonchi, reduced air movement Gastrointestinal: No tenderness, No ascites, No guarding Skin: warm, normal color, No erythema Musculoskeletal: no joint effusions, generalized weakness, No pain with ROM Neurologic: AAOx3 Psychiatric: interacting appropriately, not encephalopathic, thought process linear ICD10 Worksheet Patient Problems: Problems Problem Status Onset Breast cancer Acute Headache Acute Hypertension Acute TIA (transient ischemic attack) Acute Hypertensive emergency Acute Anemia Acute Dehydration Acute
[2017-08-28] MEDS: MELATONIN 3 MG TAB PO SCH (20:16)
[2017-08-29] MEDS: LEVOTHYROXINE 25 MCG TAB PO SCH (05:27)
[2017-08-29] MEDS: METOPROLOL SUCCINATE XR 25 MG TAB PO SCH ×2 (08:30→21:00)
[2017-08-29] MEDS: HYDROXYCHLOROQUINE SULFATE 200 MG TAB PO SCH (08:30)
[2017-08-29] MEDS: LISINOPRIL 5 MG TAB PO SCH ×3 (08:31→21:06)
[2017-08-29] MEDS: ONDANSETRON 4 MG/2 ML VIAL IVP PRN (08:31)
[2017-08-29] MEDS: APIXABAN 2.5 MG TAB PO SCH ×2 (08:32→21:00)
[2017-08-29] MEDS: [UNRECOGNIZED DRUG - OTHER] PO SCH ×3 (08:33→20:59)
[2017-08-29] MEDS: POLYETHYLENE GLYCOL 3350 17 GM PKT PO SCH (09:32)
[2017-08-29] MEDS: SENNOSIDES/DOCUSATE SODIUM TAB PO SCH ×2 (09:33→21:00)
[2017-08-29] MEDS ORDERED: DEXAMETHASONE 4 MG/ML VIAL IVP ONE (10:46)
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
[2017-08-29] MEDS: SILVER SULFADIAZINE 50 GM JAR TP SCH ×2 (12:37→20:59)
--- NOTE | 2017-08-29 12:42 | ASMTCMCOM ---
CM Note CM Note Notes: Patient is unfortunately feeling unwell and nauseated. Discharge to [facility] is pending her feeling well enough. She did work with PT today. Updated notes were sent to [facility] yesterday. Current CM Discharge plan: [facility] Date Signed: 08/29/2017 12:42 PM Electronically Signed By:Fabiana Lyman RN
[2017-08-29] MEDS: MELATONIN 3 MG TAB PO SCH (21:00)
[2017-08-29 22:28] VITALS: TEMP 97.7; O2SAT 95
[2017-08-30] MEDS: SILVER SULFADIAZINE 50 GM JAR TP SCH ×2 (00:03→11:00)
[2017-08-30] MEDS: LISINOPRIL 5 MG TAB PO SCH ×2 (00:06→07:46)
[2017-08-30] MEDS: LEVOTHYROXINE 25 MCG TAB PO SCH (05:49)
[2017-08-30 07:39] VITALS: BP 148/89; PULSE 85; RESP 20
[2017-08-30] MEDS: HYDROXYCHLOROQUINE SULFATE 200 MG TAB PO SCH (07:44)
[2017-08-30] MEDS: SENNOSIDES/DOCUSATE SODIUM TAB PO SCH (07:46)
[2017-08-30] MEDS: APIXABAN 2.5 MG TAB PO SCH (07:47)
[2017-08-30] MEDS: METOPROLOL SUCCINATE XR 25 MG TAB PO SCH (07:47)
[2017-08-30] MEDS: [UNRECOGNIZED DRUG - OTHER] PO SCH (07:49)
[2017-08-30] MEDS: POLYETHYLENE GLYCOL 3350 17 GM PKT PO SCH (07:57)
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
[2017-08-30] MEDS ORDERED: CEPHALEXIN 500 MG CAP PO SCH (12:00)
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
== END 2017-08-30 14:11 | DRG 641 ==
LOC: F3E 17:38 → OBSVTOIN 17:40
PROVIDERS: ADMIT Internal Medicine; ATTEND Internal Medicine
DX: E86.0 Dehydration (principal); R65.10 Systemic inflammatory response syndrome (SIRS) of non-infectious origin without acute organ dysfunction; C79.89 Secondary malignant neoplasm of other specified sites; J20.8 Acute bronchitis due to other specified organisms; T21.01XA Burn of unspecified degree of chest wall, initial encounter; L59.8 Other specified disorders of the skin and subcutaneous tissue related to radiation; Y84.2 Radiological procedure and radiotherapy as the cause of abnormal reaction of the patient, or of later complication, without mention of misadventure at the time of the procedure; I10 Essential (primary) hypertension; M32.9 Systemic lupus erythematosus, unspecified; I48.91 Unspecified atrial fibrillation; D64.9 Anemia, unspecified; E03.9 Hypothyroidism, unspecified; Z85.3 Personal history of malignant neoplasm of breast; Z90.11 Acquired absence of right breast and nipple; Z95.0 Presence of cardiac pacemaker
CPT/HCPCS: 96374; 97116-GP; 97161-GP; 97166-GO; 97530-GO; 97530-GP; 97535-GO; G8978-GP-CI; G8979-GP-CH; G8980-GP-CJ; G8987-GO-CJ; G8988-GO-CI; G8989-GO-CI; J0690; J1100; J2405; Q9967

== ENCOUNTER 2017-09-09 14:39 | Inpatient (IN) | payer OTHER, BC ==
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
[2017-09-09 15:16] LABS: PLATELET COUNT 231 10^3/uL (150-400)
[2017-09-09 15:23] LABS: INR 1.17 (0.83-1.16); PROTIME(PATIENT) 15.1 SEC (12.0-15.0)
--- NOTE | 2017-09-09 15:50 | ASMTLACE ---
ERASMO Acuity / Level of Answers: Yes Care: Did the patient have an inpatient admission? Comorbidities - select Answers: Any tumor (including all that apply lymphoma or leukemia) # of Emergency department Answers: 1-2 visits in the last 6 months Score: 6 Date Signed: 09/09/2017 03:50 PM Electronically Signed By:Serena Romo RN
--- NOTE | 2017-09-09 15:54 | ASMTCMCOM ---
CM Note CM Note Notes: Patient presents to the ER accompanied by her daughter from [facility] ([facility]). Patient was discharged from recent IP stay at [facility] (08/30/17) to [facility]. CM to follow through admission ans assist with discharge planning/return to [facility] vs home with support Date Signed: 09/09/2017 03:53 PM Electronically Signed By:Serena Romo RN
--- NOTE | 2017-09-09 19:47 | PDGENHP ---
History and Physical History and Physical: CC: Sent from nursing facility because of fevers HISTORY: This patient with multiple medical problems was recently here at this hospital, discharge August 30, treated for wound infection and suspected respiratory viral infection. At that time she did have some cough and fevers and some bronchitic breath sounds but no infiltrates on x-ray a no shortness of breath or hypoxemia and nothing on a a viral respiratory pathogen PCR test. The symptoms resolved nicely during her stay here. She was treated conservatively. 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 At the time of her previous admission she was already under treatment for a staphylococcal infection of that wound. Since leaving the hospital here she has been in a nursing facility getting ongoing wound care and that wound has been doing very nicely. It is not felt to have ongoing current infection. Today the patient is sent from the nursing facility back to this hospital because of fevers, though it is not really clear to me when the fever started. She does admit to having spells of rigors about 3 times a day recently. At this time the patient tells me that she has had some headaches, has a significant coughing spell every time she tries to take a deep breath in, with production of green phlegm, and has some intermittent nausea and decreased appetite but is eating. No vomiting no abdominal pain no diarrhea. She has no pain in the chest and does not particularly feel short of breath. There is nothing that sounds like heart failure. A comprehensive review of systems reveals no other specific symptoms to suggest and no other infectious syndrome or localization of any infectious syndrome. Her highest temperature in the emergency room so far today 37.0. As I look back at her last 2 days in the hospital previously August 29 and there was 1 temperature of 37.5 degrees on the but no other elevated temperatures on those 2 days. ROS: A comprehensive 10 system review revealed no other significant findings PAST MEDICAL HISTORY: -Breast cancer 12 years ago with lumpectomy and radiation then, followed by recurrence about a year ago with mastectomy, and now a skin recurrence anterior chest wall initially resected but with further recurrence is now receiving radiation treatments -hypothyroidism -atrial fibrillation -pacemaker -systemic lupus; there is a history of pleuritis from her lupus for many years ago and she says she has chronic abnormal lung sounds on exam from that FAMILY MEDICAL HISTORY: No specific illnesses that would relate to her current acute infectious sending syndrome SOCIAL HISTORY: approximately 7 years ago No tobacco or alcohol MEDICATIONS: The patients list has been reconciled by our clinical pharmacist in the EMR; this is the list supplied to us by the current nursing facility where she has been getting care since discharge from here a week ago. I have reviewed the list and ordered appropriate medicines. PHYSICAL EXAMINATION: Vital Signs: So far here no fever and vital signs are otherwise normal Waiter/Waitress Room Service: Sinus rhythm Examination: General: alert, oriented, good mentation, relaxed Skin: warm, dry, good color, no rash HEENT: normal Neck: no mass or jvd Resps: relaxed Lungs: Some slight rhonchi in both lung ramirez; few rales at bases which she says is chronic from history of pleurisy Chest: She has 1 small remaining area of open wound on the right upper anterior chest just to the right of the sternum, no evidence of infection there looks much better than previous, otherwise the wound is all completely closed and looking much better, no cellulitis. Heart: regular, no murmur Abdomen: soft, nondistended, nontender, +BS, no mass Upper Extremities: normal Lower Extremities: no edema, warm No Bleeding or bruising Neurologic: normal speech/language, normal golf course assistant, no focal weakness IV site: looks normal LABORATORY DATA: Mild normocytic anemia CC otherwise stable Chemistry panel fairly unremarkable with borderline low sodium 134 UA is unremarkable RADIOLOGY STUDIES: Chest x-ray done today in the ER, I reviewed the images and compare to x-ray images from her last 2 hospitalizations. At this point there is a new diffuse patchy right lung alveolar infiltrate suggesting a pneumonia with no effusion. Is location is not suggestive of aspiration ASSESSMENT: 1- acute right lung pneumonia with fevers, likely a post viral pneumonia, though due to her hospitalization and subsequent nursing facility care would call this a healthcare acquired pneumonia, strongly suspect bacterial based on the unilateral nature and the typical infiltrates; this is almost certainly the cause of her fevers 2- ongoing wound care for her chest wall wound, looking much better at this time and does not appear to be infected 3- breast cancer, recently having had radiation therapy for chest wall recurrence in the right thorax 4-history of lupus, no evidence of flare up at this time 5-history of atrial fibrillation, all stable now with no signs of any current heart disease; history of pacemaker PLANS: -inpatient admission hospital -blood cultures have been ordered and are pending -will begin antibiotics for treatment of bacterial pneumonia -continue wound care for her chest wall wound -DVT prophylaxis, she is on chronic full-dose anticoagulation because of AFib -social work consult I reviewed the patient's case in detail today with Dr. Edward Berman I have also reviewed previous medical records including prior hospital records laboratory data and imaging studies in detail
[2017-09-09] MEDS ORDERED: SODIUM CL NASAL 45 ML BTL EACHNARE PRN (20:11)
[2017-09-09] MEDS ORDERED: HYDROCORTISONE 1% CREAM TP PRN (20:11)
[2017-09-09] MEDS ORDERED: BIOTENE DRY MOUTH MOUTHWASH 237 ML BTL MM PRN (20:11)
[2017-09-09] MEDS ORDERED: IBUPROFEN 200 MG TAB PO PRN (20:11)
[2017-09-09] MEDS ORDERED: CARBOXYMETHYLCELLULOSE 0.5% 0.4 ML DROPERETTE EACHEYE PRN (20:11)
[2017-09-09] MEDS ORDERED: LORazepam 0.5 MG TAB PO PRN (20:11)
--- NOTE | 2017-09-09 21:00 | GCON ---
[f rep st] CONSULTATION INFECTIOUS DISEASE CONSULTATION REFERRING PHYSICIAN: Edward Berman MD REASON FOR REFERRAL: Fevers. HISTORY OF PRESENT ILLNESS: Patient is an 82-year-old female, who was admitted to [facility] from 08/21/2017 through 2017, secondary to a respiratory based viral syndrome diagnosis . She was discharged on 08/30/2017 to [facility] for rehabilitation. The patient relates that over the last 5 days at [facility] she developed ongoing fevers up to 101 degrees Fa hrenheit every 5-6 hours. The patient states that she was placed on a significant number of empiric antibiotics, but that this did not seem to change her fever course. The patient has a nagging cough that increases when she takes a deep breath. She denies any gastrointestinal complaints other than r ecent constipation which was alleviated with stool softeners and prune juice. The patient states cathleen t she has had no appetite. Also states that she has profound generalized weakness. No other focal c omplaints. PAST MEDICAL HISTORY: 1. Breast cancer. Patient has had a diagnosis of a recent deep dermal recurrence in the right-sided chest wall for which she has received almost a complete course of radiation therapy. 2. Lupus. The patient on hydroxychloroquine. The patient was diagnosed with this 18 years ago. Andrea brandt was diagnosed with this around an earlier episode of breast cancer, where the presentation was a sy ndrome eerily similar to this 1. 3. Hypothyroidism. TSH and T4 levels within normal limits over the past 2 weeks. 4. Atrial fibrillation. PAST SURGICAL HISTORY: Status post pacemaker placement. ANTIBIOTICS: None currently. ALLERGIES: The patient has no known medical allergies. SOCIAL HISTORY: The patient was previously living independently. No significant tobacco, alcohol or drug use noted. FAMILY HISTORY: Noncontributory. REVIEW OF SYSTEMS: Other than that detailed above in history of present illness, a comprehensive 10- system review is negative. PHYSICAL EXAMINATION: VITAL SIGNS: Temperature is 37 degrees Celsius, heart rate is 88, respiratory rate is 16, blood pressure is 114/84. GENERAL: The patient is a well-formed, well-nourished, elder ly female, in no acute distress. She is not toxic in appearance. She is alert and oriented x3. She is pleasant in demeanor. HEENT: Normocephalic for age. Atraumatic. No scleral icterus. No drain age from the nares. EYES: Lids and conjunctivae are within normal limits. Pupils are equal and rou nd bilaterally. NECK: Supple. No meningismus. LUNGS: Clear to auscultation with decreased breath sounds in the bases. Good effort. HEART: Regular rate and rhythm. Patient has 1 to 2+ peripheral edema bilateral lower extremities knee down. ABDOMEN: Soft, nontender. No masses. No rebound. S KIN: Warm and dry to the touch. Patient has no diffuse rash. She does have a healing burn injury f rom radiation therapy on the superior right aspect of her chest wall. No significant fluctuance or d rainage. No significantly acute appearing erythema. No necrosis. MUSCULOSKELETAL: No other muscle belly tenderness is noted. No joint line effusion or arthritis seen. NEURO: Cranial nerves 2-12 s eem to be intact. Peripheral sensation seems intact in extremities. LABORATORY DATA: The patient has a CBC dated 09/09/2017, shows a white blood cell count of 4.36, hem oglobin of 11.4, hematocrit of 32.2, and a platelet count of 231. Differential shows 70% segmented n eutrophils. Serum chemistries show sodium 131, potassium 4.1, chloride of 95, bicarbonate 25, BUN of 18, creatinine 0.9. MICROBIOLOGIC DATA: Patient has blood cultures dated 09/09/2017 which are pending. Respiratory lubna l panel PCR is pending. ASSESSMENT: Fever, unclear etiology. The patient has report of fever to 101 with drenching sweats a nd shaking chills on a cyclic basis, probably indicates either deep systemic infection and in that ca se bacterial blood cultures would be hopefully indicative of the problem, or the patient may be havin g a flare of her systemic lupus erythematosus. I am unclear at this point how we would discern wheth er the 2nd diagnosis is in play. Patient does have an increased C-reactive protein from an outside l ab, from undetectable last week to 85 currently. PLAN: 1. Admit and observe and follow fever curve as well as blood cultures. 2. No empiric antibiotics at this point. 3. Follow clinical course. /[id number]/MODL
[2017-09-09] MEDS: ONDANSETRON DISINTEGRATING 4 MG TAB PO SCH (21:41)
[2017-09-09] MEDS: SENNOSIDES/DOCUSATE SODIUM TAB PO SCH (21:41)
[2017-09-09] MEDS: MELATONIN 3 MG TAB PO SCH (21:41)
[2017-09-09] MEDS: LISINOPRIL 5 MG TAB PO SCH (21:42)
[2017-09-09] MEDS: APIXABAN 5 MG TAB PO SCH (21:42)
[2017-09-09] MEDS: METOPROLOL SUCCINATE XR 25 MG TAB PO SCH (21:43)
[2017-09-10] MEDS: ONDANSETRON DISINTEGRATING 4 MG TAB PO SCH ×2 (00:53→17:43)
[2017-09-10 05:18] LABS: PLATELET COUNT 221 10^3/uL (150-400)
[2017-09-10] MEDS: LEVOTHYROXINE 25 MCG TAB PO SCH (07:07)
--- NOTE | 2017-09-10 08:45 | WOCRNPDOC ---
WOCRN Advanced Assessment Note - Skin Integrity Problem, Advanced Assess Right Upper Chest Dressing Type: Open to Air Exudate Color: Yellow Exudate Characteristic(s): Dried Integumentary Issue Intervention: Silver Gel Applied (will have nursing apply) Ros Wound Tissue: Erythema, Scarred, Painful/Tender Ros Wound Swelling: Mild Wound Bed Color: Yellow Wound Bed Constitution: Dried Exudate Wound Edges: Epithelizing Site Odor: None Site Measurement - Head-to-Toe Length X Width X Depth (cm): 2.3suc0rjq 0.1cm Skin Integrity Problem Comment: Residual wound from prior radiation tx, currently dried and crusted over. Erythema and scar tissue periwound, w/ mild swelling and c/o pain and tenderness which patient reports is baseline. Patient resistant to dressing being applied over site because she says it is too painful. She agreed to application of Silvasorb gel to soften/moisten the wound and promote healing, followed by ABD and stretch maternity panty cut into a bandeau across her chest. Report givent to napping machine operator Laura. Wound care will f/u next Sunday 09/17.
[2017-09-10] MEDS ORDERED: NS 500 ML IV ONE (09:39)
[2017-09-10] MEDS: METOPROLOL SUCCINATE XR 25 MG TAB PO SCH ×3 (10:02→20:34)
[2017-09-10] MEDS: LISINOPRIL 5 MG TAB PO SCH ×2 (10:02→20:33)
[2017-09-10] MEDS: PANTOPRAZOLE SODIUM 40 MG TAB PO SCH (10:24)
[2017-09-10] MEDS: HYDROXYCHLOROQUINE SULFATE 200 MG TAB PO SCH (10:24)
[2017-09-10] MEDS: POLYETHYLENE GLYCOL 3350 17 GM PKT PO SCH (10:25)
[2017-09-10] MEDS: APIXABAN 5 MG TAB PO SCH ×2 (10:25→20:34)
--- NOTE | 2017-09-10 11:14 | PCMIDPN ---
Assessment/Plan: 1.? Right upper lobe pneumonia: Chest x-ray with evidence of new opacity in the right upper lobe, and she was recently admitted here with a viral syndrome. This certainly could have become a secondary bacterial process at this point in time. Patient's antibiotics have been started and stopped. Will obtain CT of the chest to further evaluate lung parenchyma. Patient is agreeable to this. Will start Cefepime 1 g IV q.12 hours for now given concern for healthcare associated pneumonia/secondary bacterial infection after a viral bronchitis. Atypical process seems less likely, but will obtain Legionella urine antigen. Respiratory panel PCR negative. 2. Anxiety: Patient has a very large superimposed anxiety component. Talked to her at length about this today. She has various requests, including the need for her pacer to be interrogated, and concern for metoprolol having been stopped. Will need to continue to explain things at length to her so that she understands everything we do. 3. Chest wall wound after XRT: Appreciate wound care assistance. This looks good and does not appear infected. Over 25 min was spent with this patient today. Subjective: Patient is tearful, and very concerned about dying. States she has had fevers twice daily at the long-term care facility, and also had a shakes. Denies diarrhea. Was nauseated, but less so today. Coughing, bringing up clear sputum. Objective: Status post levofloxacin 750 x 1 T-max 37.1 degrees 95% on 2 L Vital Signs Temp Pulse Resp BP Pulse Ox 36.6 C 77 24 H 141/90 H 95 09/10/17 07:27 09/10/17 08:00 09/10/17 02:54 09/10/17 08:00 09/10/17 07:27 Laboratory Results 09/10/17 05:08 09/10/17 05:08 09/09/17 09/10/17 09/11/17 05:59 05:59 05:59 Intake Total 500 Output Total 1000 400 Balance -500 -400 Blood cultures x2 are pending Respiratory panel PCR negative - Physical Exam General Appearance: other (Looks younger than stated age, but very anxious today , tearful during my interview.) EENT: pharynx normal, No thrush Respiratory: lungs clear, other (Coarse breath sounds throughout.) Cardiac/Chest: regular rate, rhythm, other (The pacer upper left chest looks fine. Right chest with some yellowish dried exudate, with no evidence of active infection. Chronic radiation changes of the skin noted.) Abdomen: non-tender, soft Skin: No rash Neuro/Psych: oriented x 3 ICD10 Worksheet Patient Problems: Problems Problem Status Onset Breast cancer Acute Fever Acute chronic disease mgmt/Transitional care Acute Anemia Acute Dehydration Acute Headache Acute Hypertension Acute Hypertensive emergency Acute TIA (transient ischemic attack) Acute
--- NOTE | 2017-09-10 11:51 | PDMN ---
Medical Necessity Medical necessity: Pt meets IP criteria per MD; est los >2 mn for eval/tx of RUL pneumonia w/fevers likely secondary to bacterial infection; admit for further workup/monitoring, supportive care, ongoing wound care, ID consult & IV abx; hx recent hospitalization for open chest wall wound infection r/t radiation for recurrent breast cancer s/p mastectomy & suspected respiratory viral infection, AFIB on AC, pacemaker, systemic lupus; per H&P & order 09/09/17
[2017-09-10] MEDS: CEFEPIME HCL 1 GM in STERILE WATER INJ 11.3 ML IV SCH ×2 (12:29→20:30)
--- NOTE | 2017-09-10 14:16 | HOSPPROG ---
Hospitalist Progress Note Assessment/Plan: # health-care associated versus secondary bacterial pneumonia- patient with viral prodrome now lobar infiltrate CT chest(personally reviewed and interpreted) right upper lobe infiltrate- WBC 4.3 Oxygen saturations 96% on 2 L - IV cefepime - continue monitor blood cultures # permanent pacemaker-patient has requested in-house interrogation - consult to Cardiology to completing tear occasion # orthostatic hypotension-suspect secondary to hypovolemia - 1 L normal saline bolus x1 - holding lisinopril - patient insisting on restart of metoprolol-restarting earlier than would have otherwise # atrial fibrillation- with permanent pacemaker - Eliquis - metoprolol per patient request # prophylaxis Eliquis # diet regular # disposition greater than 2 midnights as the patient is requiring IV antibiotics for healthcare associated pneumonia I have discussed the case with Dr. Suarez we will use IV cefepime to cover healthcare associated pathogens Subjective: anxious Objective: Vital Signs Temp Pulse Resp BP Pulse Ox 36.9 C 93 20 151/85 H 96 09/10/17 12:50 09/10/17 12:50 09/10/17 12:50 09/10/17 12:50 09/10/17 12:50 Laboratory Results 09/10/17 05:08 09/10/17 05:08 09/09/17 09/10/17 09/11/17 05:59 05:59 05:59 Intake Total 500 Output Total 1000 1000 Balance -500 -1000 PT 15.1 SEC (12.0-15.0) H 09/09/17 15:03 INR 1.17 (0.83-1.16) H 09/09/17 15:03 - Physical Exam Constitutional: chronically ill appearing Eyes: anicteric sclera Ears, Nose, Mouth, Throat: dry mucous membranes Cardiovascular: regular rate and rhythym, systolic murmur Respiratory: no respiratory distress, No expiratory wheeze Gastrointestinal: normoactive bowel sounds Genitourinary: no bladder fullness Skin: warm Musculoskeletal: No asymmetric calves Neurologic: AAOx3 Psychiatric: anxious Lymph, Heme, Immunologic: no cervical LAD ICD10 Worksheet Patient Problems: Problems Problem Status Onset Breast cancer Acute Fever Acute chronic disease mgmt/Transitional care Acute Anemia Acute Dehydration Acute Headache Acute Hypertension Acute Hypertensive emergency Acute TIA (transient ischemic attack) Acute
--- NOTE | 2017-09-10 16:44 | ASMTCMCOM ---
CM Note CM Note Notes: Pt receiving IV antibiotics for pneumonia, dghtr very involve din her care. Updates sent to [facility] who can take pt back if she needs SNF. Date Signed: 09/10/2017 04:43 PM Electronically Signed By:RADHA Daley
[2017-09-10] MEDS: SENNOSIDES/DOCUSATE SODIUM TAB PO SCH (20:33)
[2017-09-10] MEDS: MELATONIN 3 MG TAB PO SCH (20:34)
[2017-09-10] MEDS: ACETAMINOPHEN 325 MG TAB PO PRN (20:55)
[2017-09-11] MEDS: ONDANSETRON DISINTEGRATING 4 MG TAB PO SCH ×4 (00:58→23:36)
[2017-09-11] MEDS: LEVOTHYROXINE 25 MCG TAB PO SCH (06:19)
[2017-09-11] MEDS: APIXABAN 5 MG TAB PO SCH ×2 (09:24→20:24)
[2017-09-11] MEDS: LISINOPRIL 5 MG TAB PO SCH ×2 (09:24→20:22)
[2017-09-11] MEDS: CEFEPIME HCL 1 GM in STERILE WATER INJ 11.3 ML IV SCH ×2 (09:24→20:20)
[2017-09-11] MEDS: HYDROXYCHLOROQUINE SULFATE 200 MG TAB PO SCH (09:24)
[2017-09-11] MEDS: PANTOPRAZOLE SODIUM 40 MG TAB PO SCH (09:25)
[2017-09-11] MEDS: POLYETHYLENE GLYCOL 3350 17 GM PKT PO SCH (09:37)
[2017-09-11] MEDS: METOPROLOL SUCCINATE XR 25 MG TAB PO SCH ×2 (10:05→20:23)
--- NOTE | 2017-09-11 11:18 | PCMIDPN ---
Assessment/Plan: 1. Right upper lobe pneumonia: Healthcare associated versus post viral. Continue cefepime as is for now. Will plan on 7 days of therapy, and may be able to transition to oral quinolone when she defervesces. Patient needs to get up and move around with physical therapy. Will order consult. Urine Legionella antigen pending. 2. Anxiety: Patient has a very large superimposed anxiety component. Talked to her at length about this again today. 3. Chest wall wound after XRT: Appreciate wound care assistance. This looks good and does not appear infected. 09/11/17 11:18 Subjective: Very tearful today, and tells me"I am giving up, I am dying."Long conversation with patient today about thinking positively, getting up and out of bed, etc. States she is coughing, but not bringing anything up. No diarrhea. Asking for IV fluids. Objective: Cefepime 1 g IV q.12 hours day 1. (Antibiotics day 2) T-max 37.8 degrees 92% on room air Vital Signs Temp Pulse Resp BP Pulse Ox 37.7 C 92 19 151/100 H 92 09/11/17 07:51 09/11/17 10:05 09/11/17 07:51 09/11/17 07:51 09/11/17 07:51 Laboratory Results 09/11/17 04:45 09/10/17 05:08 09/10/17 09/11/17 09/12/17 05:59 05:59 05:59 Intake Total 500 600 200 Output Total 1000 2500 1200 Balance -500 -1900 -1000 Urine Legionella antigen pending Blood cultures so far remain negative - Physical Exam General Appearance: other (Tearful, very anxious.) EENT: No scleral icterus, No thrush Respiratory: coarse breath sounds Cardiac/Chest: regular rate, rhythm, other (Pacer generator left chest is fine. Right chest notable for yellowish crusty exudate without obvious infection.) Abdomen: non-tender, soft Skin: No rash ICD10 Worksheet Patient Problems: Problems Problem Status Onset Breast cancer Acute Fever Acute chronic disease mgmt/Transitional care Acute Anemia Acute Dehydration Acute Headache Acute Hypertension Acute Hypertensive emergency Acute TIA (transient ischemic attack) Acute
[2017-09-11] MEDS ORDERED: NS 1,000 ML IV SCH (12:30)
[2017-09-11] MEDS: ACETAMINOPHEN 325 MG TAB PO PRN (12:55)
--- NOTE | 2017-09-11 16:37 | HOSPPROG ---
Hospitalist Progress Note Assessment/Plan: #RUL PNA: post viral or healthcare-associated -cont IV Cefepime. Can likely transition to at DC -Legionella pending #Chest wall wound: post-XRT. Does not appear infected. Wound care #Orthostatic hypotension: cont gentle IVFs #Hypovolemic hyponatremia: NS, repeat in AM #Permanent pacemaker #Atrial fibrillation: Xarelto #Hypothyroidism: LT4 #Lupus: home meds #HTN: Lisinopril, PRN hydral #Diet: regular #Deconditioning: emphasized that she needs to get to chair. PT/OT consulted #Disp: warrants inpatient admission for IV abx, IVFs Subjective: "I need IVfs" Very weak Objective: Vital Signs Temp Pulse Resp BP Pulse Ox 36.8 C 105 H 20 150/84 H 85 L 09/11/17 11:46 09/11/17 11:46 09/11/17 11:46 09/11/17 11:46 09/11/17 11:46 Laboratory Results 09/11/17 04:45 09/10/17 05:08 09/10/17 09/11/17 09/12/17 05:59 05:59 05:59 Intake Total 500 600 200 Output Total 1000 2500 1550 Balance -500 -1900 -1350 PT 15.1 SEC (12.0-15.0) H 09/09/17 15:03 INR 1.17 (0.83-1.16) H 09/09/17 15:03 - Physical Exam Constitutional: other (pale, tired appearing) Eyes: PERRL Ears, Nose, Mouth, Throat: dry mucous membranes Cardiovascular: regular rate and rhythym, no murmur, rub, or gallop Respiratory: no respiratory distress, rhonchi Gastrointestinal: normoactive bowel sounds, soft, non-tender abdomen Genitourinary: No marlow in urethra Skin: other (RU chest wound crusted over, no overt purulence or surrounding redness) Musculoskeletal: full muscle strength Neurologic: AAOx3, CN II-XII Intact Psychiatric: anxious ICD10 Worksheet Patient Problems: Problems Problem Status Onset Breast cancer Acute Fever Acute chronic disease mgmt/Transitional care Acute Anemia Acute Dehydration Acute Headache Acute Hypertension Acute Hypertensive emergency Acute TIA (transient ischemic attack) Acute
[2017-09-11] MEDS: SENNOSIDES/DOCUSATE SODIUM TAB PO SCH (20:25)
[2017-09-11] MEDS ORDERED: IBUPROFEN 200 MG TAB PO ONE (22:09)
[2017-09-11] MEDS: MELATONIN 3 MG TAB PO SCH (22:15)
[2017-09-12] MEDS: LEVOTHYROXINE 25 MCG TAB PO SCH (04:45)
--- NOTE | 2017-09-12 08:54 | HOSPPROG ---
Hospitalist Progress Note Assessment/Plan: #RUL PNA: post viral or healthcare-associated -cont IV Cefepime. Can likely transition to at DC -Legionella pending #Chest wall wound: post-XRT. Does not appear infected. Wound care #Orthostatic hypotension: cont gentle IVFs, hold ENMANUEL-I #Hypovolemic hyponatremia: volume down with decreased PO. Improving with NS #Permanent pacemaker #Atrial fibrillation: Xarelto #Hypothyroidism: LT4 #Lupus: home meds #HTN: Lisinopril, PRN hydral #Diet: regular #Deconditioning: emphasized that she needs to get to chair. PT/OT consulted #Disp: warrants inpatient admission for IV abx, IVFs. Pt does not want to go back to [facility] Subjective: "I want to take my BP pressure tonight" Sat in chair and walked with PT Objective: Vital Signs Temp Pulse Resp BP Pulse Ox 37.1 C 94 22 H 147/84 H 91 L 09/12/17 08:00 09/12/17 08:00 09/12/17 08:00 09/12/17 08:00 09/12/17 08:00 Laboratory Results 09/11/17 04:45 09/12/17 05:09 09/11/17 09/12/17 09/13/17 05:59 05:59 05:59 Intake Total 600 1485 Output Total 2500 3250 300 Balance -1900 -1765 -300 PT 15.1 SEC (12.0-15.0) H 09/09/17 15:03 INR 1.17 (0.83-1.16) H 09/09/17 15:03 - Physical Exam Constitutional: no apparent distress Eyes: PERRL Ears, Nose, Mouth, Throat: moist mucous membranes, dry mucous membranes Cardiovascular: regular rate and rhythym Respiratory: rhonchi Gastrointestinal: normoactive bowel sounds Genitourinary: No marlow in urethra Skin: warm Musculoskeletal: full muscle strength Neurologic: AAOx3, CN II-XII Intact Psychiatric: anxious ICD10 Worksheet Patient Problems: Problems Problem Status Onset Breast cancer Acute Fever Acute chronic disease mgmt/Transitional care Acute Anemia Acute Dehydration Acute Headache Acute Hypertension Acute Hypertensive emergency Acute TIA (transient ischemic attack) Acute
--- NOTE | 2017-09-12 09:19 | PCMIDPN ---
Assessment/Plan: 1. Right upper lobe pneumonia: Healthcare associated versus post viral. Continue cefepime as is for now while in-house. She is much better today. Need 7 days of therapy. (4 more days) As per my note yesterday, I am fine with switching her to a quinolone upon discharge to complete remaining days of therapy. Need to watch for confusion in this elderly female, however. Did not have physical therapy consultation yesterday for unclear reasons. I have spoken with the nurse who will make sure this happens. 2. Anxiety: Better today. 3. Chest wall wound after XRT: Appreciate wound care assistance. This looks good and does not appear infected. Subjective: Much, much better today. Anxiety improved. Patient happy that she no longer has a fever. Did not get up and walk with physical therapy, as she told me that someone from their service came in her room, noted that they had the wrong patient, and never came back. Not really coughing. No diarrhea. Objective: Cefepime 1 g IV q.12 hours day 2 (antibiotics day 3) T-max 37.7 degrees 91% on 3 L Vital Signs Temp Pulse Resp BP Pulse Ox 37.1 C 94 22 H 147/84 H 91 L 09/12/17 08:00 09/12/17 08:00 09/12/17 08:00 09/12/17 08:00 09/12/17 08:00 Laboratory Results 09/11/17 04:45 09/12/17 05:09 09/11/17 09/12/17 09/13/17 05:59 05:59 05:59 Intake Total 600 1485 Output Total 2500 3250 300 Balance -1900 -1765 -300 No new microbiology - Physical Exam General Appearance: alert, no apparent distress EENT: pharynx normal, No thrush Respiratory: other (Poor inspiratory effort. Decreased breath sounds both bases.) Cardiac/Chest: other (Chest wall covered, I did not take dressing down today.) Abdomen: non-tender, soft Skin: No rash Neuro/Psych: oriented x 3 ICD10 Worksheet Patient Problems: Problems Problem Status Onset Breast cancer Acute Fever Acute chronic disease mgmt/Transitional care Acute Anemia Acute Dehydration Acute Headache Acute Hypertension Acute Hypertensive emergency Acute TIA (transient ischemic attack) Acute
[2017-09-12] MEDS: APIXABAN 5 MG TAB PO SCH ×2 (09:47→21:19)
[2017-09-12] MEDS: HYDROXYCHLOROQUINE SULFATE 200 MG TAB PO SCH (09:47)
[2017-09-12] MEDS: CEFEPIME HCL 1 GM in STERILE WATER INJ 11.3 ML IV SCH ×2 (09:47→21:20)
[2017-09-12] MEDS: METOPROLOL SUCCINATE XR 25 MG TAB PO SCH ×2 (09:48→21:18)
[2017-09-12] MEDS: NS 1,000 ML IV SCH (09:50)
[2017-09-12] MEDS: PANTOPRAZOLE SODIUM 40 MG TAB PO SCH (11:02)
[2017-09-12] MEDS: ONDANSETRON DISINTEGRATING 4 MG TAB PO SCH ×3 (11:02→21:25)
[2017-09-12] MEDS: POLYETHYLENE GLYCOL 3350 17 GM PKT PO SCH (11:02)
[2017-09-12] MEDS: IBUPROFEN 200 MG TAB PO PRN (16:47)
--- NOTE | 2017-09-12 17:11 | ASMTCMCOM ---
CM Note CM Note Notes: Per MD note, pt does not want to return to [facility]. Attempted to see t but she was unavailable at the time. CM to follow. Date Signed: 09/12/2017 05:10 PM Electronically Signed By:Nila Correa LCSW
[2017-09-12] MEDS: SENNOSIDES/DOCUSATE SODIUM TAB PO SCH (21:18)
[2017-09-12] MEDS: LISINOPRIL 5 MG TAB PO SCH (21:19)
[2017-09-12] MEDS: MELATONIN 3 MG TAB PO SCH (21:20)
[2017-09-12] MEDS: ACETAMINOPHEN 325 MG TAB PO PRN (23:12)
[2017-09-12] MEDS: ACET/CAFFEINE/BUTA FIORICET 1 EACH TAB PO PRN (23:17)
[2017-09-13] MEDS: ACET/CAFFEINE/BUTA FIORICET 1 EACH TAB PO PRN (01:10)
[2017-09-13] MEDS: IBUPROFEN 200 MG TAB PO PRN ×2 (03:25→15:51)
[2017-09-13] MEDS: LEVOTHYROXINE 25 MCG TAB PO SCH (04:51)
[2017-09-13] MEDS: CEFEPIME HCL 1 GM in STERILE WATER INJ 11.3 ML IV SCH ×2 (08:35→21:52)
[2017-09-13] MEDS: APIXABAN 5 MG TAB PO SCH ×2 (08:37→21:45)
[2017-09-13] MEDS: LISINOPRIL 5 MG TAB PO SCH ×2 (08:40→21:47)
[2017-09-13] MEDS: METOPROLOL SUCCINATE XR 25 MG TAB PO SCH ×2 (08:40→21:46)
[2017-09-13] MEDS: HYDROXYCHLOROQUINE SULFATE 200 MG TAB PO SCH (08:40)
[2017-09-13] MEDS: PANTOPRAZOLE SODIUM 40 MG TAB PO SCH (08:41)
[2017-09-13] MEDS: ONDANSETRON DISINTEGRATING 4 MG TAB PO SCH ×3 (08:41→21:48)
[2017-09-13] MEDS: POLYETHYLENE GLYCOL 3350 17 GM PKT PO SCH (08:43)
--- NOTE | 2017-09-13 10:12 | PCMIDPN ---
Assessment/Plan: Assessment: right lung pneumonia -post viral upper respiratory syndrome. Patient is covered empirically on cefepime monotherapy. Her white blood cell count is improved. Her temp elevations are also minimized. Plan to continue the cefepime monotherapy for now. Continue to evaluate symptoms and signs. Plan: 1. Continue IV cefepime. 2. follow signs and symptoms and clinical course. Subjective: Patient remains rather anxious about her illness. She agrees that she has not had very high fevers but she maintain she continues to have fevers and sweats. Occasional cough. Objective: Cefepime # 3 Vital Signs Temp Pulse Resp BP Pulse Ox 37.3 C 90 16 147/82 H 93 09/13/17 08:00 09/13/17 08:28 09/13/17 08:00 09/13/17 08:28 09/13/17 08:00 Laboratory Results 09/11/17 04:45 09/13/17 04:45 09/12/17 09/13/17 09/14/17 05:59 05:59 05:59 Intake Total 1485 1455 Output Total 3250 2050 Balance -1765 -595 - Physical Exam General Appearance: WD/WN, alert, no apparent distress, non-toxic Respiratory: lungs clear, normal breath sounds, No respiratory distress Cardiac/Chest: regular rate, rhythm, No tachycardia Skin: normal color, warm/dry, No rash Neuro/Psych: alert, normal mood/affect, oriented x 3 ICD10 Worksheet Patient Problems: Problems Problem Status Onset Breast cancer Acute Fever Acute chronic disease mgmt/Transitional care Acute Anemia Acute Dehydration Acute Headache Acute Hypertension Acute Hypertensive emergency Acute TIA (transient ischemic attack) Acute
--- NOTE | 2017-09-13 14:57 | HOSPPROG ---
Hospitalist Progress Note Assessment/Plan: #RUL PNA: post viral or healthcare-associated -change to PO LQ tomorrow for total 7 days; Day 4 #Chest wall wound: post-XRT. Does not appear infected. Wound care #Orthostatic hypotension: cont gentle IVFs, hold ENMANUEL-I #Hypovolemic hyponatremia: resolved with IVFs. Due to decrease PO intake. #Underweight: BMI 17 (<18). Encourage PO intake, protein shakes #Permanent pacemaker #Atrial fibrillation: Xarelto #Hypothyroidism: LT4 #Lupus: home meds #HTN: Lisinopril, PRN hydral #Diet: regular #Deconditioning: emphasized that she needs to get to chair. PT/OT consulted #Disp: plan for DC to [facility] tomorrow, patient is agreeable Subjective: anxious. Strength improved. Sat up in chair for several hours this morning Objective: Vital Signs Temp Pulse Resp BP Pulse Ox 37.3 C 90 16 147/82 H 93 09/13/17 08:00 09/13/17 08:28 09/13/17 08:00 09/13/17 08:28 09/13/17 08:00 Laboratory Results 09/11/17 04:45 09/13/17 04:45 09/12/17 09/13/17 09/14/17 05:59 05:59 05:59 Intake Total 1485 1455 550 Output Total 3250 2050 550 Balance -1765 -595 0 PT 15.1 SEC (12.0-15.0) H 09/09/17 15:03 INR 1.17 (0.83-1.16) H 09/09/17 15:03 - Physical Exam Constitutional: no apparent distress Eyes: PERRL Ears, Nose, Mouth, Throat: moist mucous membranes Cardiovascular: regular rate and rhythym Respiratory: No no respiratory distress, No no rales or rhonchi Gastrointestinal: normoactive bowel sounds Genitourinary: no bladder fullness Skin: other (chest wall wound without erythema or cellulitis) Musculoskeletal: generalized weakness Neurologic: AAOx3, CN II-XII Intact Psychiatric: interacting appropriately, anxious ICD10 Worksheet Patient Problems: Problems Problem Status Onset Breast cancer Acute Fever Acute chronic disease mgmt/Transitional care Acute Anemia Acute Dehydration Acute Headache Acute Hypertension Acute Hypertensive emergency Acute TIA (transient ischemic attack) Acute
--- NOTE | 2017-09-13 15:07 | GCON ---
[f rep st] CONSULTATION ONCOLOGY INITIAL VISIT. PRIMARY ONCOLOGIST: Dr. Rosa Maria Graves. REASON FOR VISIT: Evaluation/management of breast cancer. HISTORY OF PRESENT ILLNESS: The patient is an 82-year-old woman who was initially diagnosed with breast cancer of the right breast in 2002. 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 This finished in September 2003. She had a lot of interruptions to therapy, due to comorbidities, but then recovered. She developed right breast recurrence in late 2014. In August 2015, Dr. Wise performed a right radical mastectomy with sentinel lymph node biopsy. She had a large mass in the upper medial aspect of the right breast which was infiltrating the scan and attached to pectoralis muscle. This required both a large skin resection and multiple flap development to close the defect. 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 The deep margin was closed, but skeletal muscle was present and uninvolved. It was ER/NH positive, HER2 negative. She was offered hormone therapy at that time, but I believe there is a history of trouble tolerating it, with report of hypertensive crisis with tamoxifen and letrozole. She was being followed closely by Dr. Graves until March 2017, when there was concern of another local recurrence. A PET scan was performed, reviewed, showing just a local recurrence. Ultrasound showed a 1.2 cm lesion in the right upper medial chest. Dr. Wise performed an excisional biopsy which showed the 1.2 cm cancer which was 2 mm in the closest margin. She was discussed at breast conference and, although there was risk involved, it was recommended to have her undergo adjuvant radiation to the chest wall. She has been doing this and is about 3 treatments short, but she does not want any further radiation. She has not followed with Dr. Graves to discuss adjuvant hormone therapy. She was admitted to the hospital after being discharged recently for wound infection and respiratory viral infection. On the day of admission, she was sent back from the nursing facility back due to fevers and persistent cough. She reported having rigors about 3 times a day. It was not felt that the wound itself was infected or worsening. She would have coughing with a deep breath and production of green phlegm, with intermittent nausea. She has been seen by ID, who has modified some of her antibiotics, and she seems to be doing better. She has not had a fever since admission. ALLERGIES: She has no known drug allergies. HOME MEDICATIONS: Include ibuprofen, ondansetron, topical hydrocortisone, hydralazine as needed, [place] spray, Senokot, Biotene mouthwash, MiraLAX, Preparation-H cream, lorazepam as needed, acetaminophen as needed, omeprazole daily, melatonin before bedtime, metoprolol twice daily, lisinopril twice daily , levothyroxine daily, hydroxychloroquine 200 mg daily, Refresh eye drops, and apixaban 2.5 mg twice daily. CHRONIC ILLNESSES: Include breast cancer as described in HPI. 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 SURGICAL HISTORY: Includes that in HPI and the pacemaker. SOCIAL HISTORY: Denies tobacco, alcohol, or drug use. She is . Her from pancreatic cancer. FAMILY HISTORY: Noncontributory. REVIEW OF SYSTEMS: Ten-point review of systems performed. Pertinent positives in HPI; otherwise, negative. PHYSICAL EXAM: VITAL SIGNS: Temperature is 37.3, pulse 93, blood pressure is 115/70. GENERAL: She is in no distress. HEENT: Unremarkable. LUNGS: Some rhonchi in both upper lung ramirez. Chest wound is covered with a clean dry dressing. I did not remove it today since it was just evaluated by the wound care nurse and doing well. ABDOMEN: Soft. NEUROLOGICAL: Grossly intact. LABS: White count is normal, hemoglobin is 11 g/dL, platelet count 202,000. Chemistries are unremarkable. Cultures negative thus far. IMAGING: Chest CT showed a moderate consolidation/pneumonia on the right. This was not present on the previous PET-CT scan from last April. Also, has some emphysematous changes in the upper lobes, small pleural effusion. IMPRESSION: 1. Right upper lobe pneumonia. 2. Radiation mcrae, currently undergoing wound care. 3. Recurrent ER-positive breast cancer. 4. History of systemic lupus. RECOMMENDATIONS: She had made it quite clear she does not want any further radiation, and she is about, she believes, 3 treatments short from finishing. With as much trouble as she has had with wound care, I think this is reasonable , and she is to continue aggressive wound care until that heals. The plan next would be to have her work with Dr. Graves on adjuvant hormone therapy. She has not had exemestane, and they can also look at something, such as raloxifene, to see if she might tolerate those a little bit better. As for the lung changes, it is doubtful related to the cancer and cannot entirely rule out postradiation changes, although it is a little bit early for that and a little more diffuse for chest wall radiation. If it is something that persists and does not get better though, sometimes steroids can be beneficial. We will be available for any questions that may arise. /[id number]/MODL MTDD
[2017-09-13] MEDS: hydrALAZINE 10 MG TAB PO PRN (15:51)
[2017-09-13] MEDS: NS 1,000 ML IV SCH (17:38)
[2017-09-13] MEDS: SENNOSIDES/DOCUSATE SODIUM TAB PO SCH (21:44)
[2017-09-13] MEDS: MELATONIN 3 MG TAB PO SCH (21:48)
[2017-09-14] MEDS: ONDANSETRON DISINTEGRATING 4 MG TAB PO SCH ×3 (03:54→22:50)
[2017-09-14] MEDS: NS 1,000 ML IV SCH (03:54)
[2017-09-14] MEDS: LEVOTHYROXINE 25 MCG TAB PO SCH (04:53)
[2017-09-14] MEDS: HYDROXYCHLOROQUINE SULFATE 200 MG TAB PO SCH (08:37)
[2017-09-14] MEDS: PANTOPRAZOLE SODIUM 40 MG TAB PO SCH (08:38)
[2017-09-14] MEDS ORDERED: POTASSIUM CL 20 MEQ TAB PO ONE (08:38)
[2017-09-14] MEDS: METOPROLOL SUCCINATE XR 25 MG TAB PO SCH ×2 (08:39→22:16)
[2017-09-14] MEDS: LISINOPRIL 5 MG TAB PO SCH ×2 (08:40→22:13)
[2017-09-14] MEDS: APIXABAN 5 MG TAB PO SCH (08:43)
[2017-09-14] MEDS: POLYETHYLENE GLYCOL 3350 17 GM PKT PO SCH (08:44)
[2017-09-14] MEDS: CEFEPIME HCL 1 GM in STERILE WATER INJ 11.3 ML IV SCH ×2 (08:44→22:40)
--- NOTE | 2017-09-14 09:29 | HOSPPROG ---
Hospitalist Progress Note Assessment/Plan: #Recurrent fever: 38.1 yesterday. DDx: lupus flare, organizing PNA, radiation pneumonitis, metastatic disease -Dr. Schultz reviewing CT with radiology; not likely related to XRT since local. Chest wound healing well -Repeat CT, check complement levels, blood cx pending -may need bronch #RUL PNA: post viral or healthcare-associated -still fevering. Will cont IV Cefepime for now #Breast cancer: recurrence of deep chest wall. Receiving XRT. Wound not infected. Wound care following #Hypovolemic hyponatremia: improved with IVFs. Due to decrease PO intake. #Hypokalemia: repleting #Underweight: BMI 17 (<18). Encourage PO intake, protein shakes #Permanent pacemaker #Atrial fibrillation: Xarelto #Hypothyroidism: LT4 #Lupus: home meds #HTN: Lisinopril, PRN hydral #Diet: regular #Deconditioning: emphasized that she needs to get to chair. PT/OT consulted #Disp: cont IV abx, repeat CT. Time spent on visit: 45 min reviewing labs, imaging and d/w Dr. Nielson Subjective: no diarrhea. Nauseated this morning Objective: Vital Signs Temp Pulse Resp BP Pulse Ox 37.8 C 104 H 17 151/78 H 86 L 09/14/17 07:28 09/14/17 07:28 09/14/17 07:28 09/14/17 08:40 09/14/17 07:28 Laboratory Results 09/11/17 04:45 09/14/17 05:15 09/13/17 09/14/17 09/15/17 05:59 05:59 05:59 Intake Total 1455 4349 Output Total 8441 6286 400 Balance -946 -951 -400 PT 15.1 SEC (12.0-15.0) H 09/09/17 15:03 INR 1.17 (0.83-1.16) H 09/09/17 15:03 - Time Spent With Patient Time Spent with Patient: greater than 35 minutes Time Spent with Patient: Greater than 35 minutes spent on this patients care, greater than 50% of time spent counseling, educating, and coordinating care regarding the above mentioned plan. - Physical Exam Constitutional: no apparent distress Eyes: PERRL Ears, Nose, Mouth, Throat: moist mucous membranes, hearing normal Cardiovascular: regular rate and rhythym, no murmur, rub, or gallop Respiratory: rhonchi Gastrointestinal: normoactive bowel sounds Genitourinary: no bladder fullness Skin: other (chest wall wound with no purulence or surrounding cellulitis) Musculoskeletal: full muscle strength Neurologic: AAOx3, CN II-XII Intact ICD10 Worksheet Patient Problems: Problems Problem Status Onset Breast cancer Acute Fever Acute chronic disease mgmt/Transitional care Acute Anemia Acute Dehydration Acute Headache Acute Hypertension Acute Hypertensive emergency Acute TIA (transient ischemic attack) Acute
--- NOTE | 2017-09-14 10:48 | PCMIDPN ---
Assessment/Plan: Assessment/Plan: * Right upper lobe pneumonia: Persistent fever and cough despite 4 days of cefepime. May simply be related to slowly resolving healthcare associated pneumonia. However, other considerations also in differential diagnosis given no improvement with antibiotic therapy. These would include inflammatory processes such as cryptogenic organizing pneumonia. Other inflammatory conditions also of consideration and patient has had radiation therapy in this region as well. Will repeat CT scan of chest today to determine if any progressive infiltrate. If so, suspect she will require bronchoscopy and pulmonary evaluation. Continue cefepime in interim. 09/14/17 10:45 Subjective: Patient with persistent cough although rice drier in character. Does note dyspnea with inspiration. Objective: Vital Signs Temp Pulse Resp BP Pulse Ox 37.8 C 104 H 17 151/78 H 86 L 09/14/17 07:28 09/14/17 07:28 09/14/17 07:28 09/14/17 08:40 09/14/17 07:28 Laboratory Results 09/11/17 04:45 09/14/17 05:15 09/13/17 09/14/17 09/15/17 05:59 05:59 05:59 Intake Total 1455 4349 Output Total 2051 4680 400 Balance -506 -276 -400 Tm 38.1 Respiratory pathogen panel by PCR negative Blood cultures x2 09/09/2017 no growth Blood cultures 09/13/2017 pending Chest x-ray 09/13/2017 with stable right-sided pneumonia Cefepime # 4 - Physical Exam General Appearance: alert, no apparent distress EENT: No scleral icterus, No thrush Respiratory: coarse breath sounds (Right lung field), other (Episodic dry cough) , No respiratory distress Cardiac/Chest: tachycardia Abdomen: non-tender, No distended Skin: No embolic lesions ICD10 Worksheet Patient Problems: Problems Problem Status Onset Breast cancer Acute Fever Acute chronic disease mgmt/Transitional care Acute Anemia Acute Dehydration Acute Headache Acute Hypertension Acute Hypertensive emergency Acute TIA (transient ischemic attack) Acute
--- NOTE | 2017-09-14 14:36 | SOAPPROG ---
SOAP Progress Note Assessment/Plan: E&M Breast cancer * Locally recurrent right breast cancer, ER positive: s/p surgery and radiation. Has not started hormone therapy. Reviewed CT and d/w Dr. Bowden. Extensive infiltrate RUL, which is side of radiation but she was treated superficially with electrons; seems unlikely etiology. Dr. Bowden is going to review the CT. Doubt she has metastatic disease. * Pneumonitis: managed by Imed and ID; may need a bronch * SLE: continue therapy * Radiation induced wound: wound care nurse following patient. Subjective: the cough may be a little better with less sputum. still tires easily Objective: Vital Signs Temp Pulse Resp BP Pulse Ox 37.8 C 104 H 17 145/80 H 86 L 09/14/17 07:28 09/14/17 07:28 09/14/17 07:28 09/14/17 12:05 09/14/17 07:28 Laboratory Results 09/11/17 04:45 09/14/17 05:15 09/13/17 09/14/17 09/15/17 05:59 05:59 05:59 Intake Total 1455 4349 250 Output Total 2050 4628 600 Balance -595 -276 -350 PT 15.1 SEC (12.0-15.0) H 09/09/17 15:03 INR 1.17 (0.83-1.16) H 09/09/17 15:03 Physical Exam - Physical Exam General Appearance: no apparent distress Respiratory: rhonchi Cardiac/Chest: regular rate, rhythm ICD10 Worksheet Patient Problems: Problems Problem Status Onset Breast cancer Acute Fever Acute chronic disease mgmt/Transitional care Acute Anemia Acute Dehydration Acute Headache Acute Hypertension Acute Hypertensive emergency Acute TIA (transient ischemic attack) Acute
--- NOTE | 2017-09-14 15:23 | ASMTCMCOM ---
CM Note CM Note Notes: Confirmed w pt she wants to return to [facility], updates sent. Date Signed: 09/14/2017 03:23 PM Electronically Signed By:RADHA Daley
[2017-09-14] MEDS: ACETAMINOPHEN 325 MG TAB PO PRN (16:02)
[2017-09-14] MEDS: hydrALAZINE 10 MG TAB PO PRN (16:03)
[2017-09-14] MEDS: IBUPROFEN 200 MG TAB PO PRN (17:32)
[2017-09-14] MEDS: SILVER SULFADIAZINE 50 GM JAR TP SCH (18:03)
[2017-09-14] MEDS: MELATONIN 3 MG TAB PO SCH (22:16)
[2017-09-14] MEDS: APIXABAN 2.5 MG TAB PO SCH (22:18)
[2017-09-14] MEDS: SENNOSIDES/DOCUSATE SODIUM TAB PO SCH (22:50)
[2017-09-15] MEDS: IBUPROFEN 200 MG TAB PO PRN ×2 (04:53→22:45)
[2017-09-15] MEDS: ONDANSETRON DISINTEGRATING 4 MG TAB PO SCH ×3 (04:54→21:51)
[2017-09-15] MEDS: LEVOTHYROXINE 25 MCG TAB PO SCH (04:57)
--- NOTE | 2017-09-15 09:02 | HOSPPROG ---
Hospitalist Progress Note Assessment/Plan: #RUL consolidation: post viral or healthcare-associated PNA possible. Tmax 38.[address] R[address] chest CT yesterday without much change. Discussed with ID, unlikely infectious. Discussed with pulm, plans to proceed with bronch , pt agreeable. 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 Unlikely related to XRT per onc, pulm agrees. -send anti-DS DNA titer, noting this has been on the rise -may benefit from steroids, will d/w dr. pulido tomorrow #Breast cancer with open chest wall wound 08/27 XRT: recurrence of deep chest wall. Receiving XRT. Wound not infected. Some improvement reported -cont wound care #Hypovolemic hyponatremia: improved with IVFs. Due to decrease PO intake. #Hypokalemia: repleted, K normalized #Underweight: BMI 17 (<18). Encourage PO intake, protein shakes #Permanent pacemaker #Atrial fibrillation: Rate controlled, cont Xarelto #Hypothyroidism: LT4 #Lupus: home meds #HTN: Lisinopril, PRN hydral #Diet: regular #Deconditioning: emphasized that she needs to get to chair. PT/OT #Dispo: cont inpt Subjective: Pt is struggling with "being reduced to this". She is usually very active. Chest wall wound less painful. Reports recurring fever every day. No CP or SOB. Objective: Vital Signs Temp Pulse Resp BP Pulse Ox 36.8 C 84 17 139/85 H 95 09/15/17 07:57 09/15/17 07:57 09/15/17 07:57 09/15/17 07:57 09/15/17 07:57 Laboratory Results 09/11/17 04:45 09/15/17 04:50 09/14/17 09/15/17 09/16/17 05:59 05:59 05:59 Intake Total 4349 250 Output Total 4625 800 Balance -276 -550 PT 15.1 SEC (12.0-15.0) H 09/09/17 15:03 INR 1.17 (0.83-1.16) H 09/09/17 15:03 - Physical Exam Constitutional: no apparent distress Eyes: PERRL Ears, Nose, Mouth, Throat: moist mucous membranes Cardiovascular: regular rate and rhythym Respiratory: no respiratory distress Gastrointestinal: normoactive bowel sounds Skin: warm Musculoskeletal: full muscle strength Neurologic: AAOx3 Psychiatric: interacting appropriately ICD10 Worksheet Patient Problems: Problems Problem Status Onset Breast cancer Acute Fever Acute chronic disease mgmt/Transitional care Acute Anemia Acute Dehydration Acute Headache Acute Hypertension Acute Hypertensive emergency Acute TIA (transient ischemic attack) Acute
[2017-09-15] MEDS: CEFEPIME HCL 1 GM in STERILE WATER INJ 11.3 ML IV SCH (09:45)
[2017-09-15] MEDS: METOPROLOL SUCCINATE XR 25 MG TAB PO SCH ×2 (09:46→21:50)
[2017-09-15] MEDS: APIXABAN 2.5 MG TAB PO SCH ×2 (09:46→21:51)
[2017-09-15] MEDS: LISINOPRIL 5 MG TAB PO SCH ×2 (09:47→21:50)
[2017-09-15] MEDS: HYDROXYCHLOROQUINE SULFATE 200 MG TAB PO SCH (09:47)
[2017-09-15] MEDS: POLYETHYLENE GLYCOL 3350 17 GM PKT PO SCH (09:48)
[2017-09-15] MEDS: PANTOPRAZOLE SODIUM 40 MG TAB PO SCH (09:53)
--- NOTE | 2017-09-15 10:44 | PCMIDPN ---
Assessment/Plan: # RLL infiltrate associated Cough, fever, NS - basically unchanged on cefepime. WBC Normal. PCT low CT chest RLL infiltrate unchanged. Suspect non- infectious etiology - lupus, COOP, radiation. --pulmonary consult, discussed bronchoscopy with patient. She is unable to produce sputum --dc cefepime as low likelihood for infection --sending ds DNA titer per patient request, Dr. Azul will discuss with Dr. Sargent micro 09/09 resp PCR neg 09/09 blood cx (2) neg 09/13 blood cx (2) NGTD Subjective: patient still with daily fever/NS. Prior to admit fever twice daily. persistent dry cough Objective: Vital Signs Temp Pulse Resp BP Pulse Ox 36.8 C 84 17 139/85 H 95 09/15/17 07:57 09/15/17 07:57 09/15/17 07:57 09/15/17 07:57 09/15/17 07:57 Laboratory Results 09/11/17 04:45 09/15/17 04:50 09/14/17 09/15/17 09/16/17 05:59 05:59 05:59 Intake Total 4349 250 Output Total 4625 800 Balance -276 -550 - Physical Exam General Appearance: alert, no apparent distress EENT: No scleral icterus Respiratory: crackles (B bases that clear w deep inspiration), No accessory muscle use Neck: supple Cardiac/Chest: regular rate, rhythm, other (R chest wall wound, no surrounding erythema), No systolic murmur Extremities: No pedal edema Abdomen: non-tender, soft Skin: pallor, No rash Neuro/Psych: alert, normal mood/affect, oriented x 3 - Time Spent With Patient Time Spent with Patient: greater than 35 minutes (care coordinated with Dr. Azul and Dr. Deleon) Time Spent with Patient: Greater than 35 minutes spent on this patients care, greater than 50% of time spent counseling, educating, and coordinating care regarding the above mentioned plan. ICD10 Worksheet Patient Problems: Problems Problem Status Onset Breast cancer Acute Fever Acute chronic disease mgmt/Transitional care Acute Anemia Acute Dehydration Acute Headache Acute Hypertension Acute Hypertensive emergency Acute TIA (transient ischemic attack) Acute
--- NOTE | 2017-09-15 14:08 | SOAPPROG ---
SOAP Progress Note Assessment/Plan: E&M Breast cancer * Locally recurrent right breast cancer, ER positive: s/p surgery and radiation. Has not started hormone therapy. Reviewed CT and d/w Dr. Bowden. * Extensive infiltrate RUL: ?Pneumonitis. spoke with pulm who is planning to bronch. Unlikely related to radiation. Related to SLE? * SLE: continue therapy * Radiation induced wound: wound care nurse following patient. Subjective: Cough a little worse today. Son with patient. Objective: Vital Signs Temp Pulse Resp BP Pulse Ox 36.8 C 84 17 139/85 H 95 09/15/17 07:57 09/15/17 07:57 09/15/17 07:57 09/15/17 07:57 09/15/17 07:57 Laboratory Results 09/11/17 04:45 09/15/17 04:50 09/14/17 09/15/17 09/16/17 05:59 05:59 05:59 Intake Total 4349 250 Output Total 4625 800 Balance -276 -550 PT 15.1 SEC (12.0-15.0) H 09/09/17 15:03 INR 1.17 (0.83-1.16) H 09/09/17 15:03 Physical Exam - Physical Exam General Appearance: no apparent distress Respiratory: rhonchi Cardiac/Chest: regular rate, rhythm ICD10 Worksheet Patient Problems: Problems Problem Status Onset Breast cancer Acute Fever Acute chronic disease mgmt/Transitional care Acute Anemia Acute Dehydration Acute Headache Acute Hypertension Acute Hypertensive emergency Acute TIA (transient ischemic attack) Acute
--- NOTE | 2017-09-15 18:31 | GCON ---
[f rep st] CONSULTATION PULMONARY CONSULTATION. DATE OF CONSULTATION: 09/15/2017 HISTORY OF PRESENT ILLNESS: This patient is an 82-year-old woman who is dealing with recurrent breas t cancer and admitted with probable pneumonia. Her breast cancer was diagnosed some 12 years ago and she underwent lumpectomy followed by radiation therapy. She had recurrence of last year and underwe nt mastectomy at that time. However, more recently she developed significant skin recurrence and req uired particle radiation therapy to this, and has a fungating mass on her skin. In any case, she had a wound infection, was admitted to [facility] on August 30. This was thought to be due to Staph aureus. She was treated with antibiotics and discharged to a shelter facility. She was readmitted on September 09 with recurrent fevers riders, cough productive of green sputum an d chest x-ray showed probable pneumonia. CT scan showed significant infiltrates in the right upper l obe as well as right middle lobe. She was treated with cefepime and then seen by Infectious Disease where she seemed to be getting somewhat better, but she has had persistent fever. She also has a his tory of lupus and has had rising titers of double-stranded DNA. Her procalcitonin has been low, and her antibiotics were discontinued today. I was asked to see her about potential bronchoscopy. REVIEW OF SYSTEMS: Otherwise negative. PAST MEDICAL HISTORY: 1. Breast cancer as described above. 2. She also has hypothyroidism. 3. Atrial fibrillation. 4. Permanent pacemaker. 5. Lupus. 6. Anxiety disorder. SOCIAL HISTORY: She is a nonsmoker. No alcohol or IV drug use. FAMILY HISTORY: Noncontributory at this time. PAST SURGICAL HISTORY: 1. Lumpectomy. 2. Mastectomy. 3. Skin cancer removals, I believe. MEDICATIONS: At this time include Fioricet, Eliquis, hydralazine p.r.n., topical hydrocortisone, Clay quenil, Motrin, Synthroid, Zestril, Ativan, melatonin, Toprol, Protonix, MiraLAX, Senokot, therm clarissa e and Mcmullen [place]. PHYSICAL EXAM: VITAL SIGNS: Her T-max was 38.3, blood pressure 149/86, heart rate 101, respirations 18, oxygen saturation 91% on room air. GENERAL: She was clearly distraught and anxious throughout our conversation frequently interrupting with multiple questions and not exactly waiting for the answ ers, but was otherwise pleasant and able to speak in full sentences without using accessory muscles f or breathing. HEENT: Pupils equally round and reactive to light. Nonicteric and noninjected. Muco us membranes moist without erythema or exudate. NECK: Supple without obvious adenopathy or jugular vein distention. CHEST: Chest wall wound dressing: I did attempt to look at it, but it is causing her quite a bit of discomfort, so I did not completely pull that off, but this was thought to be not infected, according to Dr. Euceda from ID. Breath sounds were clear to auscultation bilaterally with out wheezes, rubs or rales. HEART: Regular rate and rhythm. ABDOMEN: Soft, nontender, nondistende d without hepatosplenomegaly. EXTREMITIES: No clubbing, cyanosis, or edema. NEUROLOGIC: Nonfocal, including cranial nerves, deep tendon reflexes. OBJECTIVE DATA: Includes a CT scan showing significant right upper lobe infiltrate that appears to b e worse than previously, in my estimation, not consistent with radiation pneumonitis and more likely to be pneumonia, particularly atypical pneumonia. Her basic metabolic panel is remarkable for sodium 134, but was otherwise normal. Fvmz-[id number] ed DNA is pending at this time, as are C3 and C4, which have been previously elevated. White count l ast done on the was normal at that time with hematocrit of 31, platelets of 202. ASSESSMENT AND PLAN: Persistent fevers and potentially worsening pneumonia in an immunocompromised p atient. I agree with bronchoscopy and I will make plans to do a BAL tomorrow. I think she can anam nue with her Eliquis since I am not planning on doing any transbronchial lung biopsies, but a simple BAL looking for 2 typical organisms as well as atypical and opportunistic infections. The risks and benefits of the procedure were explained in great detail. She agreed to proceed. Her son-in-law was present for this discussion. /[id number]/MODL
[2017-09-15] MEDS: MELATONIN 3 MG TAB PO SCH (21:51)
[2017-09-15] MEDS: SENNOSIDES/DOCUSATE SODIUM TAB PO SCH (22:38)
[2017-09-16] MEDS: NS 1,000 ML IV SCH (00:47)
[2017-09-16 05:35] LABS: PLATELET COUNT 200 10^3/uL (150-400)
[2017-09-16] MEDS: LEVOTHYROXINE 25 MCG TAB PO SCH (06:50)
[2017-09-16] MEDS ORDERED: LR 1,000 ML IV ONE (08:23)
[2017-09-16] MEDS ORDERED: ALBUTEROL 3 ML DEYVIAL ONE (08:37)
[2017-09-16] MEDS ORDERED: LIDOCAINE 1% 300 MG/30 ML SDV ONE (08:38)
[2017-09-16] MEDS ORDERED: fentaNYL 100 MCG/2 ML INJ ONE (08:43)
[2017-09-16] MEDS ORDERED: MIDAZOLAM 2 MG/2 ML VIAL ONE (08:43)
--- NOTE | 2017-09-16 09:40 | PDINTPN ---
Rn Documentation Progress Note Assessment/Plan: Assessment/plan: 82 F with recurrent breast cancer complicated by chest wall involvement. She was treated with right chest XRT 12 years ago at the time of her original diagnosis, and nore recently with particle beam radiation to the right chest wall. She was treated for a wound infection at [facility] 08/30 and dc'd to SNF, but re- admitted 09/09 with fever, rigors, and cough productive of green sputum without hemoptysis. A CXR then CT showed RUL/RML infiltrate consistent with pneumonia so was started on abx. However, her fevers persisted and a repeat CT showed increasing consolidation of her RUL infiltrate. Her antibiotics were discontinued after a course of therapy and since her procalcitonin was low. Her infiltrates were not thought to be radiation pneumonitis. Because of her ongoing fever and immunocompromised state, a BAL was performed. She has pau quite anxious throughout her stay. * Pneumonia versus pneumonitis. Given the lack of non-anatomical delineation of her infiltrates, I dont suspect radiation pneumonitis from her original XRT, and her current therapy is primarily focused on her skin. Her BAL today ( dictated separately) was unremarkable, but adequate specimens were collected. No evidence of DAH. Subjective: No events overnight Objective: Vital Signs Temp Pulse Resp BP Pulse Ox 37.2 C 100 21 H 159/80 H 100 09/16/17 08:14 09/16/17 08:14 09/16/17 09:24 09/16/17 09:24 09/16/17 09:24 Laboratory Results 09/16/17 05:14 09/16/17 05:14 09/15/17 09/16/17 09/17/17 05:59 05:59 05:59 Intake Total 250 187 Output Total 800 Balance -550 187 PT 15.1 SEC (12.0-15.0) H 09/09/17 15:03 INR 1.17 (0.83-1.16) H 09/09/17 15:03 Physical Exam - Physical Exam General Appearance: alert, mild distress (anxiety), other (pre-bronch exam) EENT: PERRL/EOMI Respiratory: decreased breath sounds, No respiratory distress, No accessory muscle use Cardiac/Chest: regular rate, rhythm, other (exophytic chest wall lesion), No edema Abdomen: non-tender, soft, No distended Skin: normal color, warm/dry, No cyanosis Lymphatic: no adenopathy Extremities: No pedal edema Neuro/Psych: alert, oriented x 3, other (anxious) ICD10 Worksheet Patient Problems: Problems Problem Status Onset Breast cancer Acute Fever Acute chronic disease mgmt/Transitional care Acute Anemia Acute Dehydration Acute Headache Acute Hypertension Acute Hypertensive emergency Acute TIA (transient ischemic attack) Acute
--- NOTE | 2017-09-16 10:14 | GPN ---
[f rep st] PROCEDURE NOTE DATE OF PROCEDURE: 09/16/2017 PROCEDURE: Bronchoalveolar lavage. INDICATION: Pneumonia. CONSENT: Informed consent was obtained from the patient prior to the administration of anesthesia. The risks and benefits of the procedure and conscious sedation were explained in detail and patient a greed to proceed. CONSCIOUS SEDATION: Was achieved using a total of 3 mg IV Versed and 100 mcg of IV fentanyl. Patien t tolerated these well without complications. DESCRIPTION OF PROCEDURE: The bronchoscope was passed through a normal-appearing oropharynx, after t he application of topical lidocaine. Vocal cords appeared to be moving normally and had no obvious l esions. Trachea looked normal in midline. The main nusrat was sharp without evidence of adenopathy. A survey of the left lung including left upper lobe, lingula, as well as lower lobe divisions was n ormal including mucosa and no secretions. The right lower lobe segments as well as right middle lobe were also normal. Attention was drawn to the right upper lobe where infiltrate was seen on CT scan. A bronchoalveolar lavage was performed in this region using 3 aliquots of 40 cc of normal saline. There was a total of 60 cc return that was pink and cloudy without significant mucus plugs and no baltazar dence of alveolar hemorrhage. Overall, the patient tolerated the procedure well. /[id number]/MODL
[2017-09-16] MEDS: METOPROLOL SUCCINATE XR 25 MG TAB PO SCH ×2 (12:11→21:33)
[2017-09-16] MEDS: LISINOPRIL 5 MG TAB PO SCH ×2 (12:12→21:35)
[2017-09-16] MEDS: APIXABAN 2.5 MG TAB PO SCH ×2 (12:12→21:35)
[2017-09-16] MEDS: ONDANSETRON DISINTEGRATING 4 MG TAB PO SCH ×3 (12:12→21:37)
[2017-09-16] MEDS: PANTOPRAZOLE SODIUM 40 MG TAB PO SCH (12:12)
[2017-09-16] MEDS: POLYETHYLENE GLYCOL 3350 17 GM PKT PO SCH (12:13)
[2017-09-16] MEDS: HYDROXYCHLOROQUINE SULFATE 200 MG TAB PO SCH (13:08)
--- NOTE | 2017-09-16 13:09 | HOSPPROG ---
Hospitalist Progress Note Assessment/Plan: #RUL consolidation: post viral or healthcare-associated PNA possible. Afebrile >24 hrs off atbx. Rpt chest CT without much change, slightly more dense consolidation. Discussed with ID, unlikely infectious. Discussed with pulm and onc, who both doubt XRT related. -cont to observe off atbx -bronch today relatively unremarkable, BAL specimens sent #Recurrent fever: DDx- lupus flare, REAL ESTATE OPERATIONS MANAGER, radiation pneumonitis or metastatic disease. Unlikely related to XRT per onc, pulm. -anti-DS DNA titer pending -may benefit from steroids, attempted to reach Dr. Sargent, her primary distilling department supervisor, but he is not in the office today. Will try again tomorrow. #Breast cancer with open chest wall wound / XRT: recurrence of deep chest wall. Receiving XRT. Wound not infected. Some improvement reported -cont wound care #Hypovolemic hyponatremia: improved with IVFs. Due to decrease PO intake. #Hypokalemia: repleted, K normalized #Permanent pacemaker #Atrial fibrillation: Rate controlled, cont Xarelto #Hypothyroidism: LT4 #Lupus: home meds, anti-DS titer pending as above #HTN: Lisinopril, PRN hydral #Diet: regular #Deconditioning: Cont PT/OT #Dispo: cont inpt Subjective: Pt doing ok. No fevers since yesterday. Denies CP or worsening SOB. Chest wall wound improving. Objective: Vital Signs Temp Pulse Resp BP Pulse Ox 36.9 C 85 18 146/84 H 97 09/16/17 11:00 09/16/17 11:00 09/16/17 11:00 09/16/17 11:00 09/16/17 11:00 Microbiology 09/16/17 09:00 Gram Stain - Final Lung - Bronchial Washings 09/16/17 09:30 Gram Stain - Final Lung - Bronchial Washings Laboratory Results 09/16/17 05:14 09/16/17 05:14 09/15/17 09/16/17 09/17/17 05:59 05:59 05:59 Intake Total 250 187 Output Total 800 Balance -550 187 PT 15.1 SEC (12.0-15.0) H 09/09/17 15:03 INR 1.17 (0.83-1.16) H 09/09/17 15:03 - Physical Exam Constitutional: no apparent distress Eyes: PERRL Ears, Nose, Mouth, Throat: moist mucous membranes Cardiovascular: regular rate and rhythym Respiratory: no respiratory distress, inspiratory crackles Gastrointestinal: normoactive bowel sounds, soft, non-tender abdomen Skin: warm Musculoskeletal: full muscle strength Neurologic: AAOx3 Psychiatric: interacting appropriately ICD10 Worksheet Patient Problems: Problems Problem Status Onset Breast cancer Acute Fever Acute chronic disease mgmt/Transitional care Acute Anemia Acute Dehydration Acute Headache Acute Hypertension Acute Hypertensive emergency Acute TIA (transient ischemic attack) Acute
--- NOTE | 2017-09-16 14:52 | SOAPPROG ---
SOAP Progress Note Assessment/Plan: E&M Breast cancer * Locally recurrent right breast cancer, ER positive: s/p surgery and radiation. Has not started hormone therapy. Reviewed CT and d/w Dr. Bowden. * Extensive infiltrate RUL: ?Pneumonitis. Will follow up bronch. * SLE: continue therapy * Radiation induced wound: wound care nurse following patient. Subjective: About the same. Tolerated bronch ok. Objective: Vital Signs Temp Pulse Resp BP Pulse Ox 36.9 C 85 18 146/84 H 97 09/16/17 11:00 09/16/17 11:00 09/16/17 11:00 09/16/17 11:00 09/16/17 11:00 Microbiology 09/16/17 09:00 Gram Stain - Final Lung - Bronchial Washings 09/16/17 09:30 Gram Stain - Final Lung - Bronchial Washings Laboratory Results 09/16/17 05:14 09/16/17 05:14 09/15/17 09/16/17 09/17/17 05:59 05:59 05:59 Intake Total 250 187 Output Total 800 Balance -550 187 PT 15.1 SEC (12.0-15.0) H 09/09/17 15:03 INR 1.17 (0.83-1.16) H 09/09/17 15:03 Physical Exam - Physical Exam General Appearance: no apparent distress Respiratory: rhonchi (is a little better) ICD10 Worksheet Patient Problems: Problems Problem Status Onset Breast cancer Acute Fever Acute chronic disease mgmt/Transitional care Acute Anemia Acute Dehydration Acute Headache Acute Hypertension Acute Hypertensive emergency Acute TIA (transient ischemic attack) Acute
[2017-09-16] MEDS: IBUPROFEN 200 MG TAB PO PRN ×2 (14:57→23:58)
--- NOTE | 2017-09-16 15:21 | PCMIDPN ---
Assessment/Plan: # RLL infiltrate associated Cough, fever, NS - was unchanged on cefepime, stopped 09/15/17. WBC Normal. PCT low CT chest RLL infiltrate unchanged. Appreciate pulmonary consult. Underwent bronch today and cell count lymphocyte predominance. considering lupus pneumonitis vs atypical infection related to immune suppression --multiple samples obtained including AFB, standard bacterial, fungal, DFA for PCP --continue off antibiotics for now --dsDNA pending, if increasing may be indication for steroids # urinary urgency: check UA and post void residual with bedside US micro 09/09 resp PCR neg 09/09 blood cx (2) neg 09/13 blood cx (2) NGTD Subjective: still with night sweats and dry cough, unchanged Objective: Vital Signs Temp Pulse Resp BP Pulse Ox 36.9 C 85 18 146/84 H 97 09/16/17 11:00 09/16/17 11:00 09/16/17 11:00 09/16/17 11:00 09/16/17 11:00 Microbiology 09/16/17 09:00 Gram Stain - Final Lung - Bronchial Washings 09/16/17 09:30 Gram Stain - Final Lung - Bronchial Washings Laboratory Results 09/16/17 05:14 09/16/17 05:14 09/15/17 09/16/17 09/17/17 05:59 05:59 05:59 Intake Total 250 187 Output Total 800 Balance -550 187 Laboratory Tests 09/16/17 BAL 09:00 Fluid WBC 643 H Fluid RBC 5960 H Fluid Neutrophils 8 Fluid Lymphocytes 56 Fluid Eosinophils 9 Fld Meso/Macro/Monocyte 27 - Physical Exam General Appearance: alert, no apparent distress, non-toxic EENT: pale conjunctiva Respiratory: crackles (RLL), No accessory muscle use Cardiac/Chest: regular rate, rhythm, systolic murmur Extremities: No pedal edema Abdomen: non-tender, soft Skin: No rash Neuro/Psych: alert, normal mood/affect, oriented x 3 - Time Spent With Patient Time Spent with Patient: greater than 35 minutes (reviewed results, plans for waiting for further antibiotics until more data, discussed lupus flair in DDx) Time Spent with Patient: Greater than 35 minutes spent on this patients care, greater than 50% of time spent counseling, educating, and coordinating care regarding the above mentioned plan. ICD10 Worksheet Patient Problems: Problems Problem Status Onset Breast cancer Acute Fever Acute chronic disease mgmt/Transitional care Acute Anemia Acute Dehydration Acute Headache Acute Hypertension Acute Hypertensive emergency Acute TIA (transient ischemic attack) Acute
[2017-09-16] MEDS: ACETAMINOPHEN 325 MG TAB PO PRN (15:54)
--- NOTE | 2017-09-16 16:49 | ASMTCMCOM ---
CM Note CM Note Notes: Dc plan is still to return to [facility], confirmed this w/pt today, when medically ready. Pt still w/fevers today, not feeling well. Tammy from [facility] on-site, met w/pt and they are able to accept back when ready.CM will follow. Date Signed: 09/16/2017 04:48 PM Electronically Signed By:Erika Taylor RN
[2017-09-16] MEDS: SILVER SULFADIAZINE 50 GM JAR TP SCH (17:14)
[2017-09-16] MEDS: SENNOSIDES/DOCUSATE SODIUM TAB PO SCH (21:36)
[2017-09-16] MEDS: MELATONIN 3 MG TAB PO SCH (21:37)
[2017-09-16] MEDS: ACET/CAFFEINE/BUTA FIORICET 1 EACH TAB PO PRN (22:16)
[2017-09-17] MEDS ORDERED: ACET/CAFFEINE/BUTA FIORICET 1 EACH TAB PO PRN (03:34)
[2017-09-17] MEDS: ACET/CAFFEINE/BUTA FIORICET 1 EACH TAB PO PRN (03:57)
[2017-09-17] MEDS: LEVOTHYROXINE 25 MCG TAB PO SCH (05:18)
[2017-09-17] MEDS: NS 1,000 ML IV SCH ×2 (05:19→20:26)
[2017-09-17] MEDS: LISINOPRIL 5 MG TAB PO SCH ×2 (08:37→21:44)
[2017-09-17] MEDS: APIXABAN 2.5 MG TAB PO SCH ×2 (08:38→21:47)
[2017-09-17] MEDS: PANTOPRAZOLE SODIUM 40 MG TAB PO SCH (08:38)
[2017-09-17] MEDS: HYDROXYCHLOROQUINE SULFATE 200 MG TAB PO SCH (08:39)
[2017-09-17] MEDS: ONDANSETRON DISINTEGRATING 4 MG TAB PO SCH ×4 (08:39→21:47)
[2017-09-17] MEDS: METOPROLOL SUCCINATE XR 25 MG TAB PO SCH ×2 (08:40→21:46)
[2017-09-17] MEDS: POLYETHYLENE GLYCOL 3350 17 GM PKT PO SCH (08:40)
--- NOTE | 2017-09-17 09:03 | HOSPPROG ---
Hospitalist Progress Note Assessment/Plan: #RUL consolidation: ?Pneumonitis. Post viral or HCAP possible. Rpt chest CT personally reviewed, slightly more dense consolidation. Discussed with ID, unlikely infectious. Discussed with pulm and onc, who both doubt XRT related. -cont to observe off atbx -bronch yest relatively unremarkable -f/u BAL specimens sent for PCP, cytology, fungal, bacterial Cx's #Recurrent fever: Tmax 38.3 in past 24 hrs. DDx- lupus flare, ASSOCIATE PROFESSOR OF BIOSTATISTICS, radiation pneumonitis or metastatic disease. Unlikely related to XRT per onc, pulm. -anti-DS DNA titer pending, may benefit from steroids -discussed with Dr. Sargent, pt's primary ordering box operator. He recommends checking myeloperoxidase Ab, ANCA panel to r/o vasculitis and Proteinase 3 Ab to evaluate for granulomatosis or judi's. He is in favor of starting steroids. Will add prednisone 20 mg daily. #Breast cancer with open chest wall wound 2/ XRT: recurrence of deep chest wall. Receiving XRT. Wound not infected. Some improvement reported -cont wound care #Hypovolemic hyponatremia: improved with IVFs. Due to decrease PO intake. #Hypokalemia: repleted, K normalized #Permanent pacemaker #Atrial fibrillation: Rate controlled, cont Xarelto #Hypothyroidism: LT4 #Lupus: home meds, anti-DS titer pending as above #HTN: Lisinopril, PRN hydral #Diet: regular #Deconditioning: Cont PT/OT #Dispo: cont inpt Subjective: Pt doing better today. Still having daily fevers. T max 38.3. No cough, CP or SOB. Chest wall wound improving. Tolerating po. Objective: Vital Signs Temp Pulse Resp BP Pulse Ox 36.6 C 78 16 152/85 H 96 09/17/17 03:53 09/17/17 03:53 09/17/17 03:53 09/17/17 03:53 09/17/17 03:53 Microbiology 09/16/17 09:30 Mycobacterial Smear (PHAN) - Final Lung - Bronchial Washings 09/16/17 09:00 Mycobacterial Smear (PHAN) - Final Lung - Bronchial Washings 09/16/17 09:00 Gram Stain - Final Lung - Bronchial Washings 09/16/17 09:30 Gram Stain - Final Lung - Bronchial Washings Laboratory Results 09/17/17 05:05 09/16/17 05:14 09/16/17 09/17/17 09/18/17 05:59 05:59 05:59 Intake Total 187 1415 Balance 187 1415 PT 15.1 SEC (12.0-15.0) H 09/09/17 15:03 INR 1.17 (0.83-1.16) H 09/09/17 15:03 - Physical Exam Constitutional: no apparent distress Eyes: PERRL Ears, Nose, Mouth, Throat: moist mucous membranes Cardiovascular: regular rate and rhythym Respiratory: no respiratory distress, inspiratory crackles Gastrointestinal: normoactive bowel sounds, soft, non-tender abdomen Skin: warm Musculoskeletal: full muscle strength Neurologic: AAOx3 Psychiatric: interacting appropriately ICD10 Worksheet Patient Problems: Problems Problem Status Onset Breast cancer Acute Fever Acute chronic disease mgmt/Transitional care Acute Anemia Acute Dehydration Acute Headache Acute Hypertension Acute Hypertensive emergency Acute TIA (transient ischemic attack) Acute
--- NOTE | 2017-09-17 10:21 | PCMIDPN ---
Assessment/Plan: Assessment: right lung pneumonia -post viral upper respiratory syndrome. Patient is currently being managed off empiric antibiotics due to the evidence at hand that shows a lymphocytic predominant lavage without evidence for causative pathogen. Despite empiric cefepime therapy, she continues to have subjective fevers and chills and feel poorly. Objective fever returned yesterday. It seems that a pulmonary manifestation of her underlying lupus more fits with the evidence at this point. Plan: 1. Continue to observe off antibiotics. 2. follow signs and symptoms and clinical course. 3. Follow up on BAL cultures and lupus/autoimmune testing. 09/17/17 14:33 09/17/17 14:46 Subjective: Patient is still having daily episodic fevers and sweats. No other new events or issues. Objective: no antibiotics Vital Signs Temp Pulse Resp BP Pulse Ox 36.6 C 78 16 152/85 H 96 09/17/17 03:53 09/17/17 03:53 09/17/17 03:53 09/17/17 03:53 09/17/17 03:53 Microbiology 09/16/17 09:30 Mycobacterial Smear (PHAN) - Final Lung - Bronchial Washings 09/16/17 09:00 Mycobacterial Smear (PHAN) - Final Lung - Bronchial Washings 09/16/17 09:00 Gram Stain - Final Lung - Bronchial Washings 09/16/17 09:30 Gram Stain - Final Lung - Bronchial Washings Laboratory Results 09/17/17 05:05 09/16/17 05:14 09/16/17 09/17/17 09/18/17 05:59 05:59 05:59 Intake Total 187 1415 Balance 187 1415 - Physical Exam General Appearance: WD/WN, alert, no apparent distress, non-toxic, toxic (mildly ) Respiratory: normal breath sounds, crackles (mild R sided), No lungs clear, No respiratory distress, No coarse breath sounds Cardiac/Chest: regular rate, rhythm, tachycardia Skin: normal color, warm/dry, No rash Neuro/Psych: alert, normal mood/affect, oriented x 3 ICD10 Worksheet Patient Problems: Problems Problem Status Onset Breast cancer Acute Fever Acute chronic disease mgmt/Transitional care Acute Anemia Acute Dehydration Acute Headache Acute Hypertension Acute Hypertensive emergency Acute TIA (transient ischemic attack) Acute
[2017-09-17] MEDS: predniSONE 20 MG TAB PO SCH (11:10)
--- NOTE | 2017-09-17 13:11 | SOAPPROG ---
SOAP Progress Note Assessment/Plan: E&M Breast cancer * Locally recurrent right breast cancer, ER positive: s/p surgery and radiation. Has not started hormone therapy. No cancer cells on BAL. * Extensive infiltrate RUL: SLE related Pneumonitis? Pulm, ID and Rheum following * SLE: continue therapy * Radiation induced wound: wound care nurse following patient. Subjective: Was active this morning but now fatigued and a little chilled. Objective: Vital Signs Temp Pulse Resp BP Pulse Ox 37.4 C 93 18 160/91 H 91 L 09/17/17 12:41 09/17/17 12:41 09/17/17 12:41 09/17/17 12:41 09/17/17 12:41 Microbiology 09/16/17 09:30 Gram Stain - Final Lung - Bronchial Washings 09/16/17 09:00 Gram Stain - Final Lung - Bronchial Washings 09/16/17 09:30 Mycobacterial Smear (PHAN) - Final Lung - Bronchial Washings 09/16/17 09:00 Mycobacterial Smear (PHAN) - Final Lung - Bronchial Washings Laboratory Results 09/17/17 05:05 09/16/17 05:14 09/16/17 09/17/17 09/18/17 05:59 05:59 05:59 Intake Total 187 1415 Balance 187 1415 PT 15.1 SEC (12.0-15.0) H 09/09/17 15:03 INR 1.17 (0.83-1.16) H 09/09/17 15:03 Physical Exam - Physical Exam General Appearance: no apparent distress Respiratory: rhonchi Cardiac/Chest: regular rate, rhythm ICD10 Worksheet Patient Problems: Problems Problem Status Onset Breast cancer Acute Fever Acute chronic disease mgmt/Transitional care Acute Anemia Acute Dehydration Acute Headache Acute Hypertension Acute Hypertensive emergency Acute TIA (transient ischemic attack) Acute
--- NOTE | 2017-09-17 13:52 | PDINTPN ---
Anode Worker Progress Note Assessment/Plan: Assessment/plan: 82 F with recurrent breast cancer complicated by chest wall involvement. She was treated with right chest XRT 12 years ago at the time of her original diagnosis, and nore recently with particle beam radiation to the right chest wall. She was treated for a wound infection at [facility] 08/30 and dc'd to SNF, but re- admitted 09/09 with fever, rigors, and cough productive of green sputum without hemoptysis. A CXR then CT showed RUL/RML infiltrate consistent with pneumonia so was started on abx. However, her fevers persisted and a repeat CT showed increasing consolidation of her RUL infiltrate. Her antibiotics were discontinued after a course of therapy and since her procalcitonin was low. Her infiltrates were not thought to be radiation pneumonitis. Because of her ongoing fever and immunocompromised state, a BAL was performed. She has pau quite anxious throughout her stay. * Pneumonia versus pneumonitis. Given the lack of non-anatomical delineation of her infiltrates, I dont suspect radiation pneumonitis from her original XRT, and her current therapy is primarily focused on her skin. Her BAL 09/16 was unremarkable, but adequate specimens were collected. No evidence of DAH. Lupus pneumonitis is another possibility, perhaps triggered by her XRT? Organizing pneumonia, which does not necessarily follow XRT lines of delineation is possible. If infection does not butcher out from BAL, and dsDNA titer comes back high would favor steroids. 09/17/17 13:42 Subjective: feels well after BAL 09/16 Objective: Vital Signs Temp Pulse Resp BP Pulse Ox 37.4 C 93 18 160/91 H 91 L 09/17/17 12:41 09/17/17 12:41 09/17/17 12:41 09/17/17 12:41 09/17/17 12:41 Microbiology 09/16/17 09:30 Gram Stain - Final Lung - Bronchial Washings 09/16/17 09:00 Gram Stain - Final Lung - Bronchial Washings 09/16/17 09:30 Mycobacterial Smear (PHAN) - Final Lung - Bronchial Washings 09/16/17 09:00 Mycobacterial Smear (PHAN) - Final Lung - Bronchial Washings Laboratory Results 09/17/17 05:05 09/16/17 05:14 09/16/17 09/17/17 09/18/17 05:59 05:59 05:59 Intake Total 187 1415 Balance 187 1415 PT 15.1 SEC (12.0-15.0) H 09/09/17 15:03 INR 1.17 (0.83-1.16) H 09/09/17 15:03 Physical Exam - Physical Exam General Appearance: alert, no apparent distress EENT: PERRL/EOMI Neck: supple Respiratory: lungs clear, decreased breath sounds, No respiratory distress, No accessory muscle use Cardiac/Chest: regular rate, rhythm, No edema Abdomen: non-tender, soft, No distended Skin: normal color, warm/dry, No cyanosis Lymphatic: no adenopathy Extremities: No pedal edema Neuro/Psych: alert, normal mood/affect, oriented x 3 ICD10 Worksheet Patient Problems: Problems Problem Status Onset Breast cancer Acute Fever Acute chronic disease mgmt/Transitional care Acute Anemia Acute Dehydration Acute Headache Acute Hypertension Acute Hypertensive emergency Acute TIA (transient ischemic attack) Acute
--- NOTE | 2017-09-17 15:39 | WOCRNPDOC ---
CHRISSY Advanced Assessment Note - Skin Integrity Problem, Advanced Assess Right Upper Chest Dressing Type: Abdominal Pads, Telfa, Other Other Dressing Type: stretch maternity panty used as bandeau Exudate Amount: Minimal Exudate Color: Reddish/Yellow Exudate Characteristic(s): Serosanguinous Integumentary Issue Intervention: Visualized Under Dressing Ros Wound Tissue: Erythema, Denuded, Scarred, Painful/Tender Ros Wound Swelling: Mild Wound Bed Color: Red, Yellow Wound Bed Constitution: Red/[place] - Non Granular Tissue, Loose Slough Site Odor: None Site Measurement - Head-to-Toe Length X Width X Depth (cm): 2cmx2.8cmx0.2cm Skin Integrity Problem Comment: Slough in wound bed has softened, however patient is still too tender to allow the site to be cleansed thoroughly. Wound dimensions smaller than previous assessment. Periwound skin remains raw and red , but currently intact. Continue w/ plan of care, Therahoney to wound bed daily and silvadene cream on periwound skin.
[2017-09-17] MEDS: SENNOSIDES/DOCUSATE SODIUM TAB PO SCH (21:45)
[2017-09-17] MEDS: MELATONIN 3 MG TAB PO SCH (21:47)
[2017-09-18] MEDS ORDERED: PROMETHAZINE HCL 25 MG/ML INJ IVP PRN (01:46)
[2017-09-18] MEDS: ACETAMINOPHEN 325 MG TAB PO PRN (02:04)
[2017-09-18] MEDS: IBUPROFEN 200 MG TAB PO PRN ×2 (04:13→23:26)
[2017-09-18 04:59] LABS: PLATELET COUNT 209 10^3/uL (150-400)
[2017-09-18] MEDS: NS 1,000 ML IV SCH (06:09)
[2017-09-18] MEDS: LEVOTHYROXINE 25 MCG TAB PO SCH (06:09)
[2017-09-18] MEDS: hydrALAZINE 10 MG TAB PO PRN (06:12)
[2017-09-18] MEDS ORDERED: NS W/ 20 KCl/L 1,000 ML IV SCH (06:45)
[2017-09-18] MEDS: predniSONE 20 MG TAB PO SCH ×2 (08:37→14:50)
[2017-09-18] MEDS: ONDANSETRON DISINTEGRATING 4 MG TAB PO SCH ×3 (08:38→22:02)
[2017-09-18] MEDS: APIXABAN 2.5 MG TAB PO SCH ×2 (08:47→21:20)
[2017-09-18] MEDS: HYDROXYCHLOROQUINE SULFATE 200 MG TAB PO SCH (08:48)
[2017-09-18] MEDS: PANTOPRAZOLE SODIUM 40 MG TAB PO SCH (08:48)
[2017-09-18] MEDS: LISINOPRIL 5 MG TAB PO SCH ×2 (08:49→21:20)
[2017-09-18] MEDS: METOPROLOL SUCCINATE XR 25 MG TAB PO SCH ×2 (08:49→21:20)
--- NOTE | 2017-09-18 09:15 | HOSPPROG ---
Hospitalist Progress Note Assessment/Plan: #RUL consolidation: ?Pneumonitis. Post viral or HCAP possible though has not responded to multiple rounds of atbx. Rpt chest CT personally reviewed, slightly more dense consolidation. Discussed with ID, unlikely infectious. Discussed with pulm and onc, who both doubt XRT related. -cont to observe off atbx -bronch relatively unremarkable -f/u BAL specimens sent for PCP, cytology, fungal, bacterial Cx's #Recurrent fever: Tmax 38.3 in past 24 hrs. DDx- lupus flare, LIQUID LOADER, radiation pneumonitis or metastatic disease. Unlikely related to XRT per onc, pulm. -anti-DS DNA titer negative -discussed with Dr. Sargent, pt's primary junior programmer. Sent myeloperoxidase Ab, ANCA panel to r/o vasculitis and Proteinase 3 Ab to evaluate for granulomatosis or judi's. -increase Prednisone to 20 mg BID #Breast cancer with open chest wall wound 2/2 XRT: recurrence of deep chest wall. Receiving XRT. Wound not infected. Some improvement reported -cont wound care #Hypovolemic hyponatremia: recurred off IVF's. -resume NS, follow #Hypokalemia: replete and follow #Permanent pacemaker #Atrial fibrillation: Rate controlled, cont Eliquis #Hypothyroidism: LT4 #Lupus: cont home meds, prednisone as above #HTN: Lisinopril, PRN hydral #Diet: regular #Deconditioning: Cont PT/OT #Dispo: cont inpt Subjective: Pt demoralized, still having fevers. Had a rough night. C/O headache. Chest wound improved. No CP or SOB. Decreased oral intake Objective: Vital Signs Temp Pulse Resp BP Pulse Ox 36.7 C 89 19 152/91 H 94 09/18/17 07:42 09/18/17 07:42 09/18/17 07:42 09/18/17 07:42 09/18/17 07:42 Microbiology 09/16/17 09:30 Gram Stain - Final Lung - Bronchial Washings 09/16/17 09:00 Gram Stain - Final Lung - Bronchial Washings Laboratory Results 09/18/17 04:39 09/18/17 04:39 09/17/17 09/18/17 09/19/17 05:59 05:59 05:59 Intake Total 1415 1000 825 Balance 1415 1000 825 PT 15.1 SEC (12.0-15.0) H 09/09/17 15:03 INR 1.17 (0.83-1.16) H 09/09/17 15:03 - Physical Exam Constitutional: no apparent distress Eyes: PERRL Ears, Nose, Mouth, Throat: moist mucous membranes Cardiovascular: regular rate and rhythym Respiratory: no respiratory distress, inspiratory crackles Gastrointestinal: normoactive bowel sounds, soft, non-tender abdomen Skin: warm Musculoskeletal: full muscle strength Neurologic: AAOx3 Psychiatric: interacting appropriately ICD10 Worksheet Patient Problems: Problems Problem Status Onset Breast cancer Acute Fever Acute chronic disease mgmt/Transitional care Acute Anemia Acute Dehydration Acute Headache Acute Hypertension Acute Hypertensive emergency Acute TIA (transient ischemic attack) Acute
[2017-09-18] MEDS: POLYETHYLENE GLYCOL 3350 17 GM PKT PO SCH ×2 (10:43→18:06)
--- NOTE | 2017-09-18 11:22 | SOAPPROG ---
SOAP Progress Note Assessment/Plan: Assessment: E&M Breast cancer * Locally recurrent right breast cancer, ER positive: s/p surgery and radiation. Has not started hormone therapy. No cancer cells on BAL. * Extensive infiltrate RUL: SLE related Pneumonitis? Pulm, ID and Rheum following. started on pred, 20 mg bid * SLE: continue therapy * Radiation induced wound: wound care nurse following patient.Looks quite good Subjective: feels weak but very alert Plan:Continue pred, review bronch results when available 09/18/17 11:20 Objective: Vital Signs Temp Pulse Resp BP Pulse Ox 98.1 F 89 19 152/91 H 94 09/18/17 07:42 09/18/17 07:42 09/18/17 07:42 09/18/17 07:42 09/18/17 07:42 Microbiology 09/16/17 09:30 Gram Stain - Final Lung - Bronchial Washings 09/16/17 09:00 Gram Stain - Final Lung - Bronchial Washings Laboratory Results 09/18/17 04:39 09/18/17 04:39 09/17/17 09/18/17 09/19/17 05:59 05:59 05:59 Intake Total 1415 1000 825 Balance 1415 1000 825 PT 15.1 SEC (12.0-15.0) H 09/09/17 15:03 INR 1.17 (0.83-1.16) H 09/09/17 15:03 Physical Exam - Physical Exam Skin: other (Right chest wall looks good) ICD10 Worksheet Patient Problems: Problems Problem Status Onset Breast cancer Acute Fever Acute chronic disease mgmt/Transitional care Acute Anemia Acute Dehydration Acute Headache Acute Hypertension Acute Hypertensive emergency Acute TIA (transient ischemic attack) Acute
[2017-09-18] MEDS ORDERED: ACET/CAFFEINE/BUTA FIORICET 1 EACH TAB PO PRN (16:00)
--- NOTE | 2017-09-18 16:22 | PCMIDPN ---
Assessment/Plan: Assessment: right lung pneumonia -post viral upper respiratory syndrome. Patient is currently being managed off empiric antibiotics due to the evidence at hand that shows a lymphocytic predominant lavage without evidence for causative pathogen. Fevers continue daily. It seems that a pulmonary manifestation of her underlying autoimmune disease more fits with the evidence at this point. Plan: 1. Continue to observe off antibiotics. 2. follow signs and symptoms and clinical course. 3. Follow up on BAL cultures and lupus/autoimmune testing. Subjective: patient is resting in her hospital bed. She states that her cough is much less productive and she attributes that to the beginning of steroids. still having daily fevers. Objective: No antibiotics Vital Signs Temp Pulse Resp BP Pulse Ox 36.6 C 85 16 131/79 H 93 09/18/17 15:00 09/18/17 15:00 09/18/17 15:00 09/18/17 15:00 09/18/17 15:00 Microbiology 09/16/17 09:30 Gram Stain - Final Lung - Bronchial Washings 09/16/17 09:00 Gram Stain - Final Lung - Bronchial Washings Laboratory Results 09/18/17 04:39 09/18/17 04:39 09/17/17 09/18/17 09/19/17 05:59 05:59 05:59 Intake Total 1415 1000 825 Balance 1415 1000 825 - Physical Exam General Appearance: WD/WN, alert, no apparent distress, non-toxic Respiratory: No respiratory distress Cardiac/Chest: regular rate, rhythm, No tachycardia Skin: normal color, warm/dry, No rash Neuro/Psych: alert, normal mood/affect, oriented x 3 ICD10 Worksheet Patient Problems: Problems Problem Status Onset Breast cancer Acute Fever Acute chronic disease [facility]/Transitional care Acute Anemia Acute Dehydration Acute Headache Acute Hypertension Acute Hypertensive emergency Acute TIA (transient ischemic attack) Acute
[2017-09-18] MEDS: SENNOSIDES/DOCUSATE SODIUM TAB PO SCH (21:19)
[2017-09-18] MEDS: MELATONIN 3 MG TAB PO SCH (21:20)
[2017-09-18] MEDS: PREPARATION H 51 GM CRTUBE PR PRN (23:27)
[2017-09-19] MEDS: LEVOTHYROXINE 25 MCG TAB PO SCH (05:28)
[2017-09-19] MEDS: PREPARATION H 51 GM CRTUBE PR PRN ×2 (05:30→21:11)
--- NOTE | 2017-09-19 08:55 | HOSPPROG ---
Hospitalist Progress Note Assessment/Plan: 82 yo female with h/o breast cancer and recent radiation of chest wall with healing chest wall wound, RUL consolidation and recurrent fevers. #RUL consolidation: ?Pneumonitis. Has not responded to multiple rounds of atbx. ID believes non-infectious, ?related to lupus. Rpt chest CT personally reviewed, clear air bronchograms make PE unlikely. Pulm and onc doubt XRT related. Some improvement in symptoms today, hypoxemia resolved. -bronch 09/16 relatively unremarkable, cytology neg for PCP, malignant cells, aspergillus Ag neg -cont to observe off atbx -cont prednisone -f/u BAL Cx's #Recurrent fever: Tmax 38.2 in past 24 hrs though pt reports no fever symptoms. DDx- lupus flare, LIABILITY CLAIMS REPRESENTATIVE, radiation pneumonitis or metastatic disease. -anti-DS DNA titer negative -discussed with Dr. Sargent, pt's current highway research engineer who favored steroids -myeloperoxidase Ab and Proteinase 3 Ab neg, ANCA panel pending -discussed with Dr. Ro, pt's former highway research engineer in [place] who phoned me yesterday to state she does not believe this is related to lupus -seems to be responding to prednisone, cont 20 mg daily #Breast cancer with open chest wall wound 2/ XRT: Not infected. Continues to improve -cont wound care #Hypovolemic hyponatremia: resolved with NS #Hypokalemia: replete and follow #Permanent pacemaker #Atrial fibrillation: Rate controlled, cont Eliquis #Hypothyroidism: LT4 #Lupus: cont home meds, prednisone as above #HTN: Lisinopril, PRN hydral #Constipation / hemorrhoids: anusol HC, bowel regimen #Diet: regular #Deconditioning: Cont PT/OT #Dispo: cont inpt Subjective: Pt feels much better this am. No more fevers. Note temp 38.2 documented, but pt denies feeling any fever symptoms and is much more optimistic today. C/O constipation and symptomatic hemorrhoid. Denies CP or SOB. Breathing improved, off O2. Objective: Vital Signs Temp Pulse Resp BP Pulse Ox 36.8 C 102 H 18 158/97 H 92 09/19/17 08:00 09/19/17 08:00 09/19/17 08:00 09/19/17 08:00 09/19/17 08:00 Microbiology 09/16/17 09:30 Gram Stain - Final Lung - Bronchial Washings Bronchial Washings Culture - Final Niurka Albicans 09/16/17 09:30 Mycobacterial Smear (PHAN) - Final Lung - Bronchial Washings 09/16/17 09:00 Gram Stain - Final Lung - Bronchial Washings Bronchial Washings Culture - Final 09/13/17 18:56 Blood Culture - Final Blood 09/13/17 19:08 Blood Culture - Final Blood Laboratory Results 09/18/17 04:39 09/19/17 04:36 09/18/17 09/19/17 09/20/17 05:59 05:59 05:59 Intake Total 1000 2550 Balance 1000 2550 PT 15.1 SEC (12.0-15.0) H 09/09/17 15:03 INR 1.17 (0.83-1.16) H 09/09/17 15:03 - Physical Exam Constitutional: no apparent distress Eyes: PERRL Ears, Nose, Mouth, Throat: moist mucous membranes Cardiovascular: regular rate and rhythym Respiratory: no respiratory distress, clear to auscultation Gastrointestinal: normoactive bowel sounds, soft, non-tender abdomen Skin: warm, other (chest wall wound dressed, no surrounding erythema) Musculoskeletal: full muscle strength Neurologic: AAOx3 Psychiatric: interacting appropriately ICD10 Worksheet Patient Problems: Problems Problem Status Onset Breast cancer Acute Fever Acute chronic disease mgmt/Transitional care Acute Anemia Acute Dehydration Acute Headache Acute Hypertension Acute Hypertensive emergency Acute TIA (transient ischemic attack) Acute
[2017-09-19] MEDS ORDERED: MAGNESIUM HYDROXIDE 30 ML UDCUP PO PRN (09:08)
[2017-09-19] MEDS ORDERED: LACTULOSE 20 GM/30 ML UDCUP PO PRN (09:08)
--- NOTE | 2017-09-19 09:08 | SOAPPROG ---
SOAP Progress Note Assessment/Plan: Assessment: E&M Breast cancer * Locally recurrent right breast cancer, ER positive: s/p surgery and radiation. Has not started hormone therapy. No cancer cells on BAL. * Extensive infiltrate RUL: SLE related Pneumonitis? Pulm, ID and Rheum following. started on pred, 20 mg bid, but declining evening dose, feels cough is much better * SLE: continue therapy * Radiation induced wound: wound care nurse following patient.Looks quite good BP running a bit high Plan:Continue pred, 20 mg daily, d/c planning, will need to return to snf for a period, bowel program. May need to increase metoprolol, will discuss with hospital team 09/18/17 11:20 09/19/17 09:02 09/19/17 09:08 Subjective: Complaint of constipation Objective: Vital Signs Temp Pulse Resp BP Pulse Ox 98.3 F 102 H 18 158/97 H 92 09/19/17 08:00 09/19/17 08:00 09/19/17 08:00 09/19/17 08:00 09/19/17 08:00 Microbiology 09/16/17 09:30 Gram Stain - Final Lung - Bronchial Washings Bronchial Washings Culture - Final Niurka Albicans 09/16/17 09:30 Mycobacterial Smear (PHAN) - Final Lung - Bronchial Washings 09/16/17 09:00 Gram Stain - Final Lung - Bronchial Washings Bronchial Washings Culture - Final 09/13/17 18:56 Blood Culture - Final Blood 09/13/17 19:08 Blood Culture - Final Blood Laboratory Results 09/18/17 04:39 09/19/17 04:36 09/18/17 09/19/17 09/20/17 05:59 05:59 05:59 Intake Total 1000 2550 Balance 1000 2550 PT 15.1 SEC (12.0-15.0) H 09/09/17 15:03 INR 1.17 (0.83-1.16) H 09/09/17 15:03 Physical Exam - Physical Exam General Appearance: anxiety Respiratory: lungs clear, normal breath sounds Cardiac/Chest: regular rate, rhythm Abdomen: normal bowel sounds, non-tender ICD10 Worksheet Patient Problems: Problems Problem Status Onset Breast cancer Acute Fever Acute chronic disease mgmt/Transitional care Acute Anemia Acute Dehydration Acute Headache Acute Hypertension Acute Hypertensive emergency Acute TIA (transient ischemic attack) Acute
[2017-09-19] MEDS: POLYETHYLENE GLYCOL 3350 17 GM PKT PO SCH (09:41)
[2017-09-19] MEDS: PANTOPRAZOLE SODIUM 40 MG TAB PO SCH (09:42)
[2017-09-19] MEDS: ONDANSETRON DISINTEGRATING 4 MG TAB PO SCH ×3 (09:43→21:16)
[2017-09-19] MEDS: METOPROLOL SUCCINATE XR 25 MG TAB PO SCH ×2 (09:43→21:09)
[2017-09-19] MEDS: HYDROXYCHLOROQUINE SULFATE 200 MG TAB PO SCH (09:44)
[2017-09-19] MEDS: LISINOPRIL 5 MG TAB PO SCH ×2 (09:44→21:09)
[2017-09-19] MEDS: APIXABAN 2.5 MG TAB PO SCH ×2 (09:44→21:09)
[2017-09-19] MEDS: predniSONE 20 MG TAB PO SCH ×2 (09:54→12:13)
--- NOTE | 2017-09-19 14:49 | ASMTCMCOM ---
CM Note CM Note Notes: Patient has been having recurrent fevers. Plan remains to go to [facility] on discharge. Date Signed: 09/19/2017 02:48 PM Electronically Signed By:Shima Capps LCSW
[2017-09-19] MEDS: PROCTOFOAM HC 10 GM CAN PR SCH ×2 (16:15→21:12)
[2017-09-19] MEDS: SENNOSIDES/DOCUSATE SODIUM TAB PO SCH (21:10)
[2017-09-19] MEDS: MELATONIN 3 MG TAB PO SCH (21:10)
[2017-09-20] MEDS: IBUPROFEN 200 MG TAB PO PRN (01:08)
[2017-09-20] MEDS: hydrALAZINE 10 MG TAB PO PRN ×3 (03:13→23:14)
[2017-09-20] MEDS: LEVOTHYROXINE 25 MCG TAB PO SCH (06:27)
[2017-09-20] MEDS ORDERED: predniSONE 20 MG TAB PO SCH (09:00)
[2017-09-20] MEDS: HYDROXYCHLOROQUINE SULFATE 200 MG TAB PO SCH (09:01)
[2017-09-20] MEDS: PANTOPRAZOLE SODIUM 40 MG TAB PO SCH (09:01)
[2017-09-20] MEDS: APIXABAN 2.5 MG TAB PO SCH ×2 (09:01→21:04)
[2017-09-20] MEDS: predniSONE 20 MG TAB PO SCH ×2 (09:01→09:02)
[2017-09-20] MEDS: ONDANSETRON DISINTEGRATING 4 MG TAB PO SCH ×3 (09:01→22:42)
[2017-09-20] MEDS: METOPROLOL SUCCINATE XR 25 MG TAB PO SCH ×2 (09:02→21:04)
[2017-09-20] MEDS: LISINOPRIL 5 MG TAB PO SCH ×2 (09:04→21:05)
[2017-09-20] MEDS: POLYETHYLENE GLYCOL 3350 17 GM PKT PO SCH (09:11)
[2017-09-20] MEDS: SENNOSIDES/DOCUSATE SODIUM TAB PO SCH ×2 (09:15→21:03)
--- NOTE | 2017-09-20 09:48 | HOSPPROG ---
Hospitalist Progress Note Assessment/Plan: #RUL consolidation -negative BAL. Watching off abx. May be related to lupus pneumonitis #Fever: last 09/18. Query if related to lupus, but normal complements, dsDNA titers, myeloperoxidase, proteinase -Dr. Azul spoke with her primary Vibration Engineer who favored steroids. May have to go down to 10mg daily if not tolerating #Breast cancer: recurrence of deep chest wall. Receiving XRT. Wound not infected. Wound care following #Hypovolemic hyponatremia: resolved #Hypokalemia: repleting #Underweight: BMI 17 (<18). Encourage PO intake, protein shakes #Permanent pacemaker #Atrial fibrillation: Xarelto #Hypothyroidism: LT4 #Depressed mood: associated with acute illness. #Lupus: home meds. Normal complement #HTN: Lisinopril, PRN hydral. Will d/w patient if willing to increase ACEI #Diet: regular #Deconditioning: emphasized that she needs to get to chair. PT/OT consulted #Disp: cont IV abx, repeat CT. Time spent on visit: 45 min reviewing labs, imaging. D/w Dr. Ruiz Subjective: headache, feeling foggy in her head. Min cough Objective: Vital Signs Temp Pulse Resp BP Pulse Ox 36.8 C 90 16 142/80 H 94 09/20/17 07:42 09/20/17 09:13 09/20/17 07:42 09/20/17 09:13 09/20/17 07:42 Microbiology 09/16/17 09:30 Gram Stain - Final Lung - Bronchial Washings Bronchial Washings Culture - Final Niurka Albicans 09/16/17 09:30 Mycobacterial Smear (PHAN) - Final Lung - Bronchial Washings 09/16/17 09:00 Gram Stain - Final Lung - Bronchial Washings Bronchial Washings Culture - Final Laboratory Results 09/18/17 04:39 09/19/17 04:36 09/19/17 09/20/17 09/21/17 05:59 05:59 05:59 Intake Total 2550 400 150 Balance 2550 400 150 PT 15.1 SEC (12.0-15.0) H 09/09/17 15:03 INR 1.17 (0.83-1.16) H 09/09/17 15:03 - Time Spent With Patient Time Spent with Patient: greater than 35 minutes Time Spent with Patient: Greater than 35 minutes spent on this patients care, greater than 50% of time spent counseling, educating, and coordinating care regarding the above mentioned plan. - Physical Exam Constitutional: other (anxious) Eyes: PERRL Ears, Nose, Mouth, Throat: moist mucous membranes, hearing normal Cardiovascular: tachycardia Respiratory: no respiratory distress, rhonchi Gastrointestinal: normoactive bowel sounds, soft, non-tender abdomen Skin: other (right chest wall wound dressed, no surrouning erythema) Musculoskeletal: generalized weakness Neurologic: AAOx3, CN II-XII Intact Psychiatric: anxious, depressed, flat affect ICD10 Worksheet Patient Problems: Problems Problem Status Onset Breast cancer Acute Fever Acute chronic disease mgmt/Transitional care Acute Anemia Acute Dehydration Acute Headache Acute Hypertension Acute Hypertensive emergency Acute TIA (transient ischemic attack) Acute
[2017-09-20] MEDS: PREPARATION H 51 GM CRTUBE PR PRN ×3 (09:52→22:42)
[2017-09-20] MEDS: PROCTOFOAM HC 10 GM CAN PR SCH ×3 (09:53→22:43)
--- NOTE | 2017-09-20 11:46 | SOAPPROG ---
SOAP Progress Note Assessment/Plan: Assessment/Plan: 1. Locally recurrent right breast cancer, ER+ - s/p surgery and XRT has not started homone therapy No cancer cells on BAL 2. Extensive infiltrate RUL - unclear etiology appreciate pulm and ID doing better on pred 20mg daily ?pneumonitis from SLE, post-viral etc cough and fevers have improved she is not tolerating steroids well and may need to consider taper soon 3. SLE - cont therapy 4. XRT associated wound of R chest - wound care appreciated 5, anemia - multifactorial, monitor 09/20/17 11:32 09/20/17 11:47 09/20/17 11:50 Subjective: Walking halls reports not feeling well ion steroids states cough and fever improved Objective: Vital Signs Temp Pulse Resp BP Pulse Ox 36.8 C 90 16 142/80 H 94 09/20/17 07:42 09/20/17 09:13 09/20/17 07:42 09/20/17 09:13 09/20/17 07:42 Microbiology 09/16/17 09:30 Gram Stain - Final Lung - Bronchial Washings Bronchial Washings Culture - Final Niurka Albicans 09/16/17 09:30 Mycobacterial Smear (PHAN) - Final Lung - Bronchial Washings 09/16/17 09:00 Gram Stain - Final Lung - Bronchial Washings Bronchial Washings Culture - Final Laboratory Results 09/18/17 04:39 09/19/17 04:36 09/19/17 09/20/17 09/21/17 05:59 05:59 05:59 Intake Total 2550 400 150 Balance 2550 400 150 PT 15.1 SEC (12.0-15.0) H 09/09/17 15:03 INR 1.17 (0.83-1.16) H 09/09/17 15:03 Gen - walking halls CV - RRR Chest - occasional crackles bilateral upper lobes, R>L ext - no sig edema Neuro - nonfocal ICD10 Worksheet Patient Problems: Problems Problem Status Onset Breast cancer Acute Fever Acute chronic disease mgmt/Transitional care Acute Anemia Acute Dehydration Acute Headache Acute Hypertension Acute Hypertensive emergency Acute TIA (transient ischemic attack) Acute
--- NOTE | 2017-09-20 12:48 | ASMTCMCOM ---
CM Note CM Note Notes: [facility] here to visit with the patient today. D/c plan remains [facility] when patient medically stable and ready for d/c. CM will follow. Date Signed: 09/20/2017 12:47 PM Electronically Signed By:Hilaria Capps LCSW
[2017-09-20] MEDS: MELATONIN 3 MG TAB PO SCH (21:05)
[2017-09-21] MEDS: hydrALAZINE 10 MG TAB PO PRN (03:13)
[2017-09-21] MEDS: ONDANSETRON DISINTEGRATING 4 MG TAB PO SCH ×3 (05:10→21:18)
[2017-09-21] MEDS: LEVOTHYROXINE 25 MCG TAB PO SCH (05:10)
[2017-09-21] MEDS: SENNOSIDES/DOCUSATE SODIUM TAB PO SCH ×2 (08:12→21:15)
[2017-09-21] MEDS: APIXABAN 2.5 MG TAB PO SCH ×2 (08:13→21:15)
[2017-09-21] MEDS: METOPROLOL SUCCINATE XR 25 MG TAB PO SCH ×2 (08:15→21:17)
[2017-09-21] MEDS: LISINOPRIL 5 MG TAB PO SCH (08:20)
[2017-09-21] MEDS: HYDROXYCHLOROQUINE SULFATE 200 MG TAB PO SCH (08:23)
[2017-09-21] MEDS: PANTOPRAZOLE SODIUM 40 MG TAB PO SCH (08:25)
[2017-09-21] MEDS: POLYETHYLENE GLYCOL 3350 17 GM PKT PO SCH (08:26)
[2017-09-21] MEDS: PREPARATION H 51 GM CRTUBE PR PRN ×2 (08:27→15:52)
[2017-09-21] MEDS: PROCTOFOAM HC 10 GM CAN PR SCH ×3 (08:49→21:19)
[2017-09-21] MEDS: predniSONE 10 MG TAB PO SCH (10:16)
--- NOTE | 2017-09-21 10:18 | HOSPPROG ---
Hospitalist Progress Note Assessment/Plan: #RUL consolidation -negative BAL, resp PCR. No acid fast bacilli, neg Aspergillus and PCP, or malignant cells. Watching off abx. -May be related to XRT pneumonitis? Repeat CXR today unchanged -decreased pred to 10mg today due to side effects. Would benefit from 2-4wks treatment #Fever: last 09/18. Query if related to lupus, but normal complements, dsDNA titers, myeloperoxidase, proteinase -Dr. Azul spoke with her primary Supervisor Transferring And Boxing who favored steroids. #Locally-recurrent breast cancer: in deep chest wall. Receiving XRT; not on hormone therapy yet. Wound not infected. Wound care following #Hypovolemic hyponatremia: resolved #Hypokalemia: repleting #Underweight: BMI 17 (<18). Encourage PO intake, protein shakes #Permanent pacemaker #Atrial fibrillation: Xarelto #Hypothyroidism: LT4 #Depressed mood: associated with acute illness. #Lupus: home meds. Normal complement #HTN: Increase evening Lisinopril to 10mg #Diet: regular #Deconditioning: emphasized that she needs to get to chair. PT/OT consulted #Disp: cont IV abx, repeat CT. Case discussed with Dr. Ruiz Subjective: coughing up clear sputum. "Head is foggy" Mild LYON early this morning Objective: Vital Signs Temp Pulse Resp BP Pulse Ox 36.9 C 112 H 18 136/93 H 90 L 09/21/17 07:37 09/21/17 08:15 09/21/17 03:14 09/21/17 08:20 09/21/17 07:46 Laboratory Results 09/18/17 04:39 09/21/17 06:00 09/20/17 09/21/17 09/22/17 05:59 05:59 05:59 Intake Total 400 610 Balance 400 610 PT 15.1 SEC (12.0-15.0) H 09/09/17 15:03 INR 1.17 (0.83-1.16) H 09/09/17 15:03 - Physical Exam Constitutional: other (fatigued) Eyes: PERRL Ears, Nose, Mouth, Throat: moist mucous membranes Cardiovascular: regular rate and rhythym, other (RU chest wall wound healing. No signs of infection), No edema Respiratory: inspiratory crackles (left base) Gastrointestinal: normoactive bowel sounds, soft, non-tender abdomen Genitourinary: no bladder fullness Skin: warm Musculoskeletal: full muscle strength Neurologic: AAOx3, CN II-XII Intact Psychiatric: depressed, flat affect ICD10 Worksheet Patient Problems: Problems Problem Status Onset Breast cancer Acute Fever Acute chronic disease mgmt/Transitional care Acute Anemia Acute Dehydration Acute Headache Acute Hypertension Acute Hypertensive emergency Acute TIA (transient ischemic attack) Acute
--- NOTE | 2017-09-21 11:32 | ASMTCMCOM ---
CM Note CM Note Notes: Chart reviewed. Discussed with Hospital medicine. Not medically cleared for dc today. Plan is to return to [facility] when medically stable. CM to follow. Date Signed: 09/21/2017 11:31 AM Electronically Signed By:Cata Saldaña RN
--- NOTE | 2017-09-21 14:22 | SOAPPROG ---
SOAP Progress Note Assessment/Plan: Assessment/Plan: 1. Locally recurrent right breast cancer, ER+ - s/p surgery and XRT has not started hormone therapy No cancer cells on BAL 2. Extensive infiltrate RUL - unclear etiology appreciate pulm and ID doing better on pred 10mg daily now but still coughing clinically seems to be pneumonitis - distribution seems to be associated w XRT fevers have improved Repeat CXR 3. SLE - cont therapy 4. XRT associated wound of R chest - wound care appreciated 5. anemia - multifactorial, monitor 6. weakness/dizziness - feel some relation top steroids but started prior to check TSH, Phos, Mag 09/21/17 14:20 Subjective: No acute events still feeling weak dizzy Objective: Vital Signs Temp Pulse Resp BP Pulse Ox 36.9 C 92 18 136/93 H 93 09/21/17 07:37 09/21/17 11:30 09/21/17 03:14 09/21/17 08:20 09/21/17 11:30 Microbiology 09/16/17 09:30 Mycobacterial Smear (PHAN) - Final Lung - Bronchial Washings 09/16/17 09:00 Mycobacterial Smear (PHAN) - Final Lung - Bronchial Washings Laboratory Results 09/18/17 04:39 09/21/17 06:00 09/20/17 09/21/17 09/22/17 05:59 05:59 05:59 Intake Total 400 610 Balance 400 610 PT 15.1 SEC (12.0-15.0) H 09/09/17 15:03 INR 1.17 (0.83-1.16) H 09/09/17 15:03 Gen - weak, NAD HEENT - anicteric CV - RRR Chest - coarse BS in RUL, mild crackles Abd - soft, BS+ Ext - no edema ICD10 Worksheet Patient Problems: Problems Problem Status Onset Breast cancer Acute Fever Acute chronic disease mgmt/Transitional care Acute Anemia Acute Dehydration Acute Headache Acute Hypertension Acute Hypertensive emergency Acute TIA (transient ischemic attack) Acute
[2017-09-21] MEDS ORDERED: LISINOPRIL 5 MG TAB PO SCH (21:00)
[2017-09-21] MEDS: MELATONIN 3 MG TAB PO SCH (21:18)
[2017-09-22] MEDS: hydrALAZINE 10 MG TAB PO PRN (01:41)
[2017-09-22] MEDS: LEVOTHYROXINE 25 MCG TAB PO SCH (05:45)
[2017-09-22] MEDS ORDERED: POTASSIUM CL 20 MEQ TAB PO ONE (08:31)
[2017-09-22] MEDS: predniSONE 10 MG TAB PO SCH (08:40)
[2017-09-22] MEDS: HYDROXYCHLOROQUINE SULFATE 200 MG TAB PO SCH (08:40)
[2017-09-22] MEDS: APIXABAN 2.5 MG TAB PO SCH ×2 (08:40→20:17)
[2017-09-22] MEDS: METOPROLOL SUCCINATE XR 25 MG TAB PO SCH ×2 (08:42→20:10)
[2017-09-22] MEDS: PANTOPRAZOLE SODIUM 40 MG TAB PO SCH (08:43)
[2017-09-22] MEDS: ONDANSETRON DISINTEGRATING 4 MG TAB PO SCH ×4 (08:43→20:21)
[2017-09-22] MEDS: PREPARATION H 51 GM CRTUBE PR PRN (08:44)
[2017-09-22] MEDS: POLYETHYLENE GLYCOL 3350 17 GM PKT PO SCH ×2 (08:44→20:20)
[2017-09-22] MEDS: SENNOSIDES/DOCUSATE SODIUM TAB PO SCH ×2 (08:45→20:16)
[2017-09-22] MEDS: PROCTOFOAM HC 10 GM CAN PR SCH ×3 (08:46→20:22)
[2017-09-22] MEDS ORDERED: LISINOPRIL 5 MG TAB PO SCH ×3 (09:00→21:00)
[2017-09-22] MEDS ORDERED: Herbals/Supplements -Info Only PO SCH (09:00)
--- NOTE | 2017-09-22 13:41 | SOAPPROG ---
SOAP Progress Note Assessment/Plan: Assessment/Plan: 1. Locally recurrent right breast cancer, ER+ - s/p surgery and XRT has not started hormone therapy No cancer cells on BAL 2. Extensive infiltrate RUL - unclear etiology appreciate pulm and ID doing better on pred 10mg daily now but still coughing clinically seems to be pneumonitis - distribution seems to be associated w XRT fevers have improved Repeat CXR 3. SLE - cont therapy 4. XRT associated wound of R chest - wound care appreciated 5. anemia - multifactorial, monitor 6. weakness/dizziness - feel some relation top steroids but started prior to check TSH, Phos, Mag 09/21/17 14:20 Objective: Vital Signs Temp Pulse Resp BP Pulse Ox 37.1 C 99 18 120/80 87 L 09/22/17 07:37 09/22/17 11:52 09/22/17 07:37 09/22/17 11:52 09/22/17 11:52 Microbiology 09/16/17 09:30 Mycobacterial Smear (PHAN) - Final Lung - Bronchial Washings 09/16/17 09:00 Mycobacterial Smear (PHAN) - Final Lung - Bronchial Washings Laboratory Results 09/22/17 04:44 09/22/17 04:44 09/21/17 09/22/17 09/23/17 05:59 05:59 05:59 Intake Total 610 900 Balance 610 900 PT 15.1 SEC (12.0-15.0) H 09/09/17 15:03 INR 1.17 (0.83-1.16) H 09/09/17 15:03 ICD10 Worksheet Patient Problems: Problems Problem Status Onset Breast cancer Acute Fever Acute chronic disease mgmt/Transitional care Acute Anemia Acute Dehydration Acute Headache Acute Hypertension Acute Hypertensive emergency Acute TIA (transient ischemic attack) Acute
--- NOTE | 2017-09-22 13:50 | SOAPPROG ---
SOAP Progress Note Assessment/Plan: Assessment/Plan: 1. Locally recurrent right breast cancer, ER+ - s/p surgery and XRT has not started hormone therapy No cancer cells on BAL 2. Extensive infiltrate RUL - unclear etiology appreciate pulm and ID doing better on pred 10mg daily; will cont clinically seems to be pneumonitis - distribution seems to be associated w XRT but not clear fevers have improved Repeat CXR shows stability 3. SLE - cont therapy 4. XRT associated wound of R chest - wound care appreciated 5. anemia - multifactorial, monitor 6. weakness/dizziness and difficulty controlling BPs- feel some relation to steroids but started prior to will need Rehab after d/c 09/21/17 14:20 09/22/17 13:47 Subjective: reports feeling somewhat better today still w cough but less BPs up and down Objective: Vital Signs Temp Pulse Resp BP Pulse Ox 37.1 C 99 18 120/80 87 L 09/22/17 07:37 09/22/17 11:52 09/22/17 07:37 09/22/17 11:52 09/22/17 11:52 Microbiology 09/16/17 09:30 Mycobacterial Smear (PHAN) - Final Lung - Bronchial Washings 09/16/17 09:00 Mycobacterial Smear (PHAN) - Final Lung - Bronchial Washings Laboratory Results 09/22/17 04:44 09/22/17 04:44 09/21/17 09/22/17 09/23/17 05:59 05:59 05:59 Intake Total 610 900 Balance 610 900 PT 15.1 SEC (12.0-15.0) H 09/09/17 15:03 INR 1.17 (0.83-1.16) H 09/09/17 15:03 Gen - fatigued but NAD CV - RRR Lungs - coarse BS on R; no significant crackles Abd - soft Ext - no sig edema ICD10 Worksheet Patient Problems: Problems Problem Status Onset Breast cancer Acute Fever Acute chronic disease mgmt/Transitional care Acute Anemia Acute Dehydration Acute Headache Acute Hypertension Acute Hypertensive emergency Acute TIA (transient ischemic attack) Acute
--- NOTE | 2017-09-22 17:24 | HOSPPROG ---
Hospitalist Progress Note Assessment/Plan: #RUL consolidation -suspect XRT-related pneumonitis. Negative infectious eval with neg BAL cultures and no malignant cells -repeat CXR stable. Ideally wld treat with pred 60mg, but tolerating 10mg. Will take longer than normal 2-wk regimen on longer dose #Fever: last 09/18. Query if related to lupus, but normal complements, dsDNA titers, myeloperoxidase, proteinase -Dr. Azul spoke with her primary Whip Operator who favored steroids. #Locally-recurrent breast cancer: in deep chest wall. Receiving XRT; not on hormone therapy yet. Wound not infected. #Hypovolemic hyponatremia: resolved #Hypokalemia: repleting #Underweight: BMI 17 (<18). Encourage PO intake, protein shakes #Permanent pacemaker #Atrial fibrillation: Xarelto #Hypothyroidism: LT4 #Depressed mood: associated with acute illness. #Lupus: home meds. Normal complement #HTN: labile. Cont Lisinopril #Diet: regular #Deconditioning: due to several recent hospitalizations. TSH NL. Repleted K. Rehab at [facility] #Disp: long discussion with patient and daughter today. Expectations explained that weakness will take time to improve. Also, longer recovery for pneumonitis since on lower dose pred. DC next 1-2 days Time spent on visit: 45 min discussing discharge plan with pt/daughter and CM Subjective: dizziness with walking this morning Objective: Vital Signs Temp Pulse Resp BP Pulse Ox 36.9 C 94 14 119/78 93 09/22/17 15:56 09/22/17 15:56 09/22/17 15:56 09/22/17 15:56 09/22/17 15:56 Microbiology 09/16/17 09:00 Gram Stain - Final Lung - Bronchial Washings Bronchial Washings Culture - Final 09/16/17 09:00 Mycobacterial Smear (PHAN) - Final Lung - Bronchial Washings 09/16/17 09:30 Gram Stain - Final Lung - Bronchial Washings Bronchial Washings Culture - Final Niurka Albicans 09/16/17 09:30 Mycobacterial Smear (PHAN) - Final Lung - Bronchial Washings Laboratory Results 09/22/17 04:44 09/22/17 04:44 09/21/17 09/22/17 09/23/17 05:59 05:59 05:59 Intake Total 610 900 Balance 610 900 PT 15.1 SEC (12.0-15.0) H 09/09/17 15:03 INR 1.17 (0.83-1.16) H 09/09/17 15:03 - Physical Exam Constitutional: other (appears brighter today) Eyes: PERRL Ears, Nose, Mouth, Throat: moist mucous membranes Cardiovascular: regular rate and rhythym, other (Right chest wall wound healing. No signs of cellultis), No edema Respiratory: no respiratory distress Gastrointestinal: normoactive bowel sounds Genitourinary: no bladder fullness Skin: warm, other (good skin tugor) Musculoskeletal: full muscle strength Neurologic: AAOx3 Psychiatric: interacting appropriately ICD10 Worksheet Patient Problems: Problems Problem Status Onset Breast cancer Acute Fever Acute chronic disease mgmt/Transitional care Acute Anemia Acute Dehydration Acute Headache Acute Hypertension Acute Hypertensive emergency Acute TIA (transient ischemic attack) Acute
[2017-09-22] MEDS: MELATONIN 3 MG TAB PO SCH (20:16)
[2017-09-22] MEDS ORDERED: LISINOPRIL 10 MG TAB PO SCH (21:00)
[2017-09-23] MEDS: ONDANSETRON DISINTEGRATING 4 MG TAB PO SCH ×3 (02:24→21:27)
[2017-09-23] MEDS: hydrALAZINE 10 MG TAB PO PRN (02:25)
[2017-09-23] MEDS: LEVOTHYROXINE 25 MCG TAB PO SCH (06:30)
[2017-09-23] MEDS: predniSONE 10 MG TAB PO SCH (10:21)
[2017-09-23] MEDS: HYDROXYCHLOROQUINE SULFATE 200 MG TAB PO SCH (10:21)
[2017-09-23] MEDS: APIXABAN 2.5 MG TAB PO SCH ×2 (10:21→21:20)
[2017-09-23] MEDS: METOPROLOL SUCCINATE XR 25 MG TAB PO SCH ×2 (10:22→21:20)
[2017-09-23] MEDS: PREPARATION H 51 GM CRTUBE PR PRN (10:31)
[2017-09-23] MEDS: PANTOPRAZOLE SODIUM 40 MG TAB PO SCH (10:32)
[2017-09-23] MEDS: PROCTOFOAM HC 10 GM CAN PR SCH ×3 (10:33→21:22)
[2017-09-23] MEDS: LISINOPRIL 5 MG TAB PO SCH ×3 (10:34→21:22)
[2017-09-23] MEDS: SENNOSIDES/DOCUSATE SODIUM TAB PO SCH ×2 (10:34→21:19)
--- NOTE | 2017-09-23 12:50 | HOSPPROG ---
Hospitalist Progress Note Assessment/Plan: #RUL consolidation -suspect XRT-related pneumonitis. Negative infectious eval with neg BAL cultures and no malignant cells -repeat CXR stable. Ideally wld treat with pred 60mg, but tolerating 10mg. Will treat for 2 weeks and re-eval with Dr. Graves #Persistent HTN: unclear. Does have episodes of orthostasis. r/o MUKESH with U/S, check labs for pheo triad: LYON, sweating, tachy during episodes. Schedule hydralazine -paolo stim in AM. Results may be altered since on pred (ideally would be on dex) . May need to be done after treated for pneumonitis #Fever: last 09/18. Query if related to lupus, but normal complements, dsDNA titers, myeloperoxidase, proteinase -Dr. Azul spoke with her primary Structural Engineer who favored steroids. #Locally-recurrent breast cancer: in deep chest wall. Receiving XRT; not on hormone therapy yet. Wound not infected. #Hypovolemic hyponatremia: resolved #Hypokalemia: repleting #Underweight: BMI 17 (<18). Encourage PO intake, protein shakes #Permanent pacemaker #Atrial fibrillation: Xarelto #Hypothyroidism: LT4 #Depressed mood: associated with acute illness. #Lupus: home meds. Normal complement #HTN: labile. Cont Lisinopril #Diet: regular #Deconditioning: due to several recent hospitalizations. TSH NL. Repleted K. Rehab at [facility] Time spent on 50 min reviewing treatment plan with family about HTN, pneumonitis and d/w Dr. Ruiz Subjective: LYON, tachy and sweaty last night with elevated BP Objective: Vital Signs Temp Pulse Resp BP Pulse Ox 36.9 C 99 16 133/75 H 92 09/23/17 08:25 09/23/17 10:22 09/23/17 08:25 09/23/17 12:15 09/23/17 08:25 Microbiology 09/16/17 09:00 Gram Stain - Final Lung - Bronchial Washings Bronchial Washings Culture - Final 09/16/17 09:00 Mycobacterial Smear (PHAN) - Final Lung - Bronchial Washings 09/16/17 09:30 Gram Stain - Final Lung - Bronchial Washings Bronchial Washings Culture - Final Niurka Albicans 09/16/17 09:30 Mycobacterial Smear (PHAN) - Final Lung - Bronchial Washings Laboratory Results 09/22/17 04:44 09/23/17 04:58 09/22/17 09/23/17 09/24/17 05:59 05:59 05:59 Intake Total 900 700 Output Total 2 Balance 900 698 PT 15.1 SEC (12.0-15.0) H 09/09/17 15:03 INR 1.17 (0.83-1.16) H 09/09/17 15:03 - Time Spent With Patient Time Spent with Patient: greater than 35 minutes Time Spent with Patient: Greater than 35 minutes spent on this patients care, greater than 50% of time spent counseling, educating, and coordinating care regarding the above mentioned plan. - Physical Exam Constitutional: no apparent distress Eyes: PERRL Ears, Nose, Mouth, Throat: moist mucous membranes, hearing normal Cardiovascular: regular rate and rhythym, no murmur, rub, or gallop, other (no edema) Gastrointestinal: normoactive bowel sounds, soft, non-tender abdomen Genitourinary: no bladder fullness Skin: warm Musculoskeletal: full muscle strength Neurologic: AAOx3, CN II-XII Intact, other (no facial droop, normal sensation to touch) Psychiatric: interacting appropriately ICD10 Worksheet Patient Problems: Problems Problem Status Onset Breast cancer Acute Fever Acute chronic disease mgmt/Transitional care Acute Anemia Acute Dehydration Acute Headache Acute Hypertension Acute Hypertensive emergency Acute TIA (transient ischemic attack) Acute
--- NOTE | 2017-09-23 13:34 | SOAPPROG ---
SOAP Progress Note Assessment/Plan: Assessment/Plan: 1. Locally recurrent right breast cancer, ER+ - s/p surgery and XRT has not started hormone therapy No cancer cells on BAL 2. Extensive infiltrate RUL - unclear etiology ?pneumonitis appreciate pulm and ID doing better on pred 10mg daily; will cont steroids but switching to dex while eval for adrenal insufficiency fevers have improved Repeat CXR shows stability 3. SLE - cont therapy 4. XRT associated wound of R chest - wound care appreciated 5. anemia - multifactorial, monitor 6. weakness/dizziness and difficulty controlling BPs-checking adrenal axis as well as catecholamines will need Rehab after d/c 09/23/17 13:28 Subjective: Sitting up in chair she had a bad night w vomiting, elevated BP and tachycardia Objective: Vital Signs Temp Pulse Resp BP Pulse Ox 36.9 C 99 16 133/75 H 92 09/23/17 08:25 09/23/17 10:22 09/23/17 08:25 09/23/17 12:15 09/23/17 08:25 Microbiology 09/16/17 09:00 Gram Stain - Final Lung - Bronchial Washings Bronchial Washings Culture - Final 09/16/17 09:00 Mycobacterial Smear (PHAN) - Final Lung - Bronchial Washings 09/16/17 09:30 Gram Stain - Final Lung - Bronchial Washings Bronchial Washings Culture - Final Niurka Albicans 09/16/17 09:30 Mycobacterial Smear (PHAN) - Final Lung - Bronchial Washings Laboratory Results 09/22/17 04:44 09/23/17 04:58 09/22/17 09/23/17 09/24/17 05:59 05:59 05:59 Intake Total 900 700 Output Total 2 Balance 900 698 PT 15.1 SEC (12.0-15.0) H 09/09/17 15:03 INR 1.17 (0.83-1.16) H 09/09/17 15:03 Gen - fatigued appearing, NAD HEENT - anicteric CV - tachy Resp - coarse BS RUL abd - soft, NT/ND Ext - no sig edema ICD10 Worksheet Patient Problems: Problems Problem Status Onset Breast cancer Acute Fever Acute chronic disease mgmt/Transitional care Acute Anemia Acute Dehydration Acute Headache Acute Hypertension Acute Hypertensive emergency Acute TIA (transient ischemic attack) Acute
--- NOTE | 2017-09-23 15:56 | ASMTCMCOM ---
CM Note CM Note Notes: Pt slowly improving but not ready for DC yet. Tammy from [facility] visited pt and got an update. Plan is to return to [facility] at [place]. CM to follow. Date Signed: 09/23/2017 03:56 PM Electronically Signed By:Nila Correa LCSW
[2017-09-23] MEDS: hydrALAZINE 10 MG TAB PO SCH ×2 (16:13→21:24)
[2017-09-23] MEDS: MELATONIN 3 MG TAB PO SCH (21:20)
[2017-09-24] MEDS ORDERED: COSYNTROPIN 0.25 MG/2 ML SYRINGE IVP ONE (06:00)
[2017-09-24] MEDS: LEVOTHYROXINE 25 MCG TAB PO SCH (06:05)
[2017-09-24] MEDS: HYDROXYCHLOROQUINE SULFATE 200 MG TAB PO SCH (08:41)
[2017-09-24] MEDS: APIXABAN 2.5 MG TAB PO SCH (08:41)
[2017-09-24] MEDS: METOPROLOL SUCCINATE XR 25 MG TAB PO SCH (08:42)
[2017-09-24] MEDS: LISINOPRIL 5 MG TAB PO SCH (08:42)
[2017-09-24] MEDS: hydrALAZINE 10 MG TAB PO SCH (08:43)
[2017-09-24] MEDS: ONDANSETRON DISINTEGRATING 4 MG TAB PO SCH (08:45)
[2017-09-24] MEDS: PROCTOFOAM HC 10 GM CAN PR SCH (08:45)
[2017-09-24] MEDS: PANTOPRAZOLE SODIUM 40 MG TAB PO SCH (08:46)
[2017-09-24] MEDS: POLYETHYLENE GLYCOL 3350 17 GM PKT PO SCH (08:46)
[2017-09-24] MEDS: SENNOSIDES/DOCUSATE SODIUM TAB PO SCH (08:46)
[2017-09-24] MEDS: SILVER SULFADIAZINE 50 GM JAR TP SCH (10:59)
[2017-09-24] MEDS ORDERED: predniSONE 10 MG TAB PO SCH (11:00)
--- NOTE | 2017-09-24 11:47 | PDIAF ---
- Diagnosis Diagnosis: pneuomonitis, fever, HTN Code Status: Full Code - Medication Management Discharge Medications: Medications to Continue on Transfer Butalbit/Acetamin/Caff/Codeine [Qnxxyg-Qvyr-Shlqsdhqvad-Codein] 0.5 each PO DAILY PRN 07/07/17 [Last Taken 07/07/17] Hydroxychloroquine Sulfate [Plaquenil 200 mg (*)] 200 mg PO DAILY 07/07/17 [ Last Taken 09/09/17] Hydrocortisone 1% [Hydrocortisone 1% cream (*)] 1 samra TP BID PRN 08/21/17 [Last Taken Unknown] Levothyroxine [Synthroid 25 mcg (*)] 12.5 mcg PO DAILY06 08/21/17 [Last Taken ] Lisinopril [Zestril 5 mg (*)] 5 mg PO BID 08/21/17 [Last Taken 09/09/17 08:00] Metoprolol Succinate Xr [Toprol Xl 25 mg (*)] 12.5 mg PO BID 08/21/17 [Last Taken 09/09/17 08:00] Acetaminophen [Tylenol 325mg (*)] 650 mg PO Q4HRS PRN tab 08/30/17 [Last Taken 09/09/17 10:00] Carboxymethylcellulose 0.5% [Refresh Plus Drops 0.5%] 1 samra EACHEYE Q6HRS PRN droperette 08/30/17 [Last Taken Unknown] LORazepam [Ativan (*)] 0.5 mg PO Q4HRS PRN tab 08/30/17 [Last Taken Unknown] Melatonin [Melatonin 3 MG (*)] 3 mg PO HS tab 08/30/17 [Last Taken 09/08/17] PE/Shark Liver/Gly/Pet,Wh [Preparation H Cream (*)] 1 samra [place] PRN PRN crtube 12/10 [Last Taken Unknown] Polyethylene Glycol 3350 [Miralax 17 gm (*)] 17 gm PO DAILY pkt 08/30/17 [Last Taken 09/09/17] Sodium Cl Nasal [[place] (*)] 1 spray EACHNARE Q2H PRN btl 08/30/17 [Last Taken Unknown] Gluc Oxid/l-Peroxid/Muramidase [Biotene Mouthwash (*)] 5 ml MM TID PRN 09/09/17 [Last Taken Unknown] Ibuprofen [Motrin (*)] 400 mg PO DAILY PRN 09/09/17 [Last Taken 09/09/17] Omeprazole 20 mg PO DAILY 09/09/17 [Last Taken 09/09/17] Ondansetron HCl 4 mg PO TID 09/09/17 [Last Taken 09/09/17 08:00] Sennosides/Docusate Sodium [Senokot-S] 2 tab PO HS 09/09/17 [Last Taken 09/08/17 ] Herbals/Supplements -Info Only 1 ea PO DAILY 09/20/17 [Last Taken Unknown] Apixaban [Eliquis] 2.5 mg PO BID tab 09/24/17 [Last Taken Unknown] Hydralazine HCl 5 mg PO Q8HRS PRN #30 tablet 09/24/17 [Last Taken Unknown] Hydrocortisone/Pramoxine [Proctofoam-Hc Foam] 1 samra [place] TID can 09/24/17 [Last Taken Unknown] Promethazine HCl [Phenergan Injection] 6.25 mg IVP Q6HRS PRN inj 09/24/17 [ Last Taken Unknown] Silver Sulfadiazine [Thermazene (*)] 1 samra TP AD cream 09/24/17 [Last Taken Unknown] hydrALAZINE [Apresoline 10 mg (*)] 5 mg PO TID PRN #30 tab 09/24/17 [Last Taken Unknown] predniSONE 10 mg PO DAILY #30 tab 09/24/17 [Last Taken Unknown] Discharge Medications: Refer to the Discharge Home Medication list for PRN reason. - Orders Services needed: Registered Nurse, Certified Cryptologic Linguist, Physical Therapy, Occupational Therapy Isolation Type: None Diet Texture: Regular Texture Diet - Follow Up Care Current Providers and Referrals: Patient,NotPresent [Unknown] - As per Instructions Ruben Graves MD [Medical Doctor] - follow up in 2 weeks ()
--- NOTE | 2017-09-24 12:31 | ASMTCMCOM ---
CM Note CM Note Notes: Per [facility] patient is medically cleared to transport back to [facility] in [place]. Spoke with intake co-ordinator Anca, She is to call me back with transport time. She can go by wheelchair van. She needs no oxygen. I will ask her nurse to call report to facility. CM available should other needs arise. Date Signed: 09/24/2017 12:30 PM Electronically Signed By:Cata Saldaña RN
--- NOTE | 2017-09-24 12:57 | ASMTCMCOM ---
CM Note CM Note Notes: Transport confirmed for wheelchair van [facility] for 3pm. RN aware and given report number to call. Wound care order sent via allscripts. CM avaialble should other needs arise. Date Signed: 09/24/2017 12:57 PM Electronically Signed By:Cata Saldaña RN
[2017-09-24 14:15] VITALS: BP 113/70; PULSE 103; RESP 18; TEMP 98.9; O2SAT 93
--- NOTE | 2017-09-24 14:43 | GDS ---
[f rep st] DISCHARGE SUMMARY DISCHARGE DIAGNOSES: 1. 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 2. Labile blood pressure 3. Fever. 4. Locally recurrent breast cancer. 5. 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 6. Hypovolemic hyponatremia. 7. Hypokalemia. 8. Underweight with a body mass index less than 17. 9. Permanent a pacemaker. 10. Atrial fibrillation. 11. Hypothyroidism. 12. Depressed mood/anxiety associated with acute illness. 13. Lupus. 14. HTN HPI: An 82-year-old female with history of locally recurrent breast cancer in the chest wall, who was hospitalized early August and treated for wound infection, it is suspected respiratory viral infection. She was discharged to [facility] [place]. She re-presented here with fevers and rigors 3 times a day. She had some headaches and significant coughing spells. HOSPITAL COURSE BY PROBLEM: 1. Right upper lobe consolidation: Patient was treated supportively for suspected viral infection prior hospitalization with a negative PCR. She re- presented with a right upper lobe consolidation, cough and fevers. She was initially treated for postviral pneumonia, but fevers persisted, so BAL done with negative cultures and no malignant cells. Considered other etiologies such as lupus, but had normal complements DS-DNA titers, myeloperoxidase and proteinase. Now treating for XRT pneumonitis given the location where she received on the chest wall. Pred was started with fever resolution. Did not tolerate 20mg, so reduced to 10 mg. Plan for 2 more weeks and then FU with Dr. Graves, her primary oncologist. 2. XRT pneumonitis. Again, 2 more weeks of prednisone. May warrant further treatment given such a low dose. 3. Fever. As stated above, infectious evaluation was negative here. 4. Locally recurrent breast cancer in the deep chest wall. She was receiving XRT. She is not on hormone therapy. She had a wound there, but it is not infected. She will follow up with Dr. Graves. 5. Hypovolemic hyponatremia, resolved with IV fluids. 6. Hypokalemia, repleted. 7. Underweight, BMI less than 17. Encourage protein shakes and other supplementations. 8. Permanent pacemaker. 9. Atrial fibrillation. Continue Xarelto (patient's dose should actually be 5 mg b.i.d. per pharmacy, however, patient refused and wants to continue 2.5. She may follow up with her primary collarette separator). 10. Hypothyroidism, levothyroxine. 11. Depressed mood/anxiety associated with acute illness. This is improved as her symptoms have improved. 12. Lupus. No evidence of flare with normal complements DS- DNA titers. 13. Hypertension: BP very labile here. SBP run 140s-150s baseline. Here she would be orthostatic in morning and episodes of tachycardia/sweats/dizziness with elevated BP. DDx: adrenal insufficiency, MUKESH, or pheochromocytoma. Negative renal US. Metanephrines and catecholamines pending. Did cortisol stim test, but results may be altered since on pred. This should be repeated after prednisone. BP improved with scheduled hydralazine; she will only take 5mg TID. 14. Patient is stable for discharge to [facility]. MEDICATIONS: See medication reconciliation. FOLLOWUP: 1. Dr. Graves. 2. Cardiology. LABORATORY PENDIN.Metanephrines 2. catecholamines. 3. Repeat cortisol stim test to rule out adrenal insufficiency. PHYSICAL EXAMINATION: VITAL SIGNS: Today, temperature 37.2 blood pressure 140/ 91, heart rate in the 90s, respiration 18, sats 94% on room air. GENERAL: She appears much brighter, doing well today, smiling. HEENT: PERRLA. EOMI. Moist mucous membranes. CV: Regular rate and rhythm. No murmurs, gallops, or rubs. LUNGS: Few rhonchi, but clear. ABDOMEN: Soft, nontender, nondistended. Positive bowel sounds. SKIN: Right upper chest wall wound healing. No surrounding erythema or purulence. NEUROLOGIC: 2 through 12 intact.. PSYCHIATRIC: Alert and orient x3. Time spent on discharge 60 minutes discussing followup plan with daughter and patient and coordinating discharge with CM. /[id number]/MODL MTDD
--- NOTE | 2017-09-25 10:49 | ASMTCMCOM ---
CM Note CM Note Notes: POST D/C NOTE: Yesterday, 09/24/17 Pt. d/c'ed to [facility] where she had been staying since August. Daughter Rosa called today. Rosa states [facility] not following d/c med list and mother suffering as a result. Rosa is having Pt. moved to [facility] [place]. Rosa grateful for call back. Date Signed: 09/25/2017 10:48 AM Electronically Signed By:Oly Mulligan LCSW
== END 2017-09-24 15:37 | DRG 167 ==
LOC: EDUNIT# → F3N 17:14 → F1N 09-15 14:05
PROVIDERS: ADMIT Internal Medicine; ATTEND Internal Medicine
PROC: 0B9F8ZX Drainage of Right Lower Lung Lobe, Via Natural or Artificial Opening Endoscopic, Diagnostic (ICD-10-PCS; principal; 2017-09-16 08:30)
DX: J70.0 Acute pulmonary manifestations due to radiation (principal); T21.01XD Burn of unspecified degree of chest wall, subsequent encounter; Y84.2 Radiological procedure and radiotherapy as the cause of abnormal reaction of the patient, or of later complication, without mention of misadventure at the time of the procedure; E87.6 Hypokalemia; E87.0 Hyperosmolality and hypernatremia; M32.13 Lung involvement in systemic lupus erythematosus; I95.1 Orthostatic hypotension; R63.6 Underweight; Z68.1 Body mass index [BMI] 19.9 or less, adult; Z85.3 Personal history of malignant neoplasm of breast; F41.8 Other specified anxiety disorders; E03.9 Hypothyroidism, unspecified; I48.91 Unspecified atrial fibrillation; I10 Essential (primary) hypertension; Z79.01 Long term (current) use of anticoagulants; Z95.0 Presence of cardiac pacemaker
CPT/HCPCS: 82382-90; 82384-90; 83516-90; 83520-90; 83835-90; 86225-90; 86300-90; 87449-90; 97110-GP; 97116-GP; 97162-GP; 97166-GO; 97530-GO; 97530-GP; 97535-GO; G8978-GP-CJ; G8979-GP-CI; G8987-GO-CJ; G8988-GO-CI; J0692; J0834; J2250; J2550; J3010; J7512; J7613

== ENCOUNTER → 2017-10-27 | Outpatient (CLI) | payer OTHER, BC | LOC: SBRMNEURO 10:59 | PROVIDERS: ATTEND Psychiatry & Neurology Sleep Medicine | DX: G47.33 Obstructive sleep apnea (adult) (pediatric) (principal) ==

== ENCOUNTER → 2018-03-23 | Outpatient (CLI) | payer OTHER, BC | LOC: BHFA 10:15 | PROVIDERS: ATTEND Internal Medicine Cardiovascular Disease | DX: I48.91 Unspecified atrial fibrillation (principal); I49.3 Ventricular premature depolarization; I25.10 Atherosclerotic heart disease of native coronary artery without angina pectoris; I10 Essential (primary) hypertension; F41.8 Other specified anxiety disorders; K25.9 Gastric ulcer, unspecified as acute or chronic, without hemorrhage or perforation; C50.919 Malignant neoplasm of unspecified site of unspecified female breast; L93.0 Discoid lupus erythematosus; Z95.0 Presence of cardiac pacemaker ==

== ENCOUNTER 2018-07-12 17:56 | Inpatient (IN) | payer OTHER, BC ==
[2018-07-12] MEDS ORDERED: ONDANSETRON 4 MG/2 ML VIAL IVP ONE (18:26)
[2018-07-12] MEDS ORDERED: NS 1,000 ML IV ONE (18:26)
--- NOTE | 2018-07-12 18:34 | EDPHY ---
H & P Time Seen by Provider: 07/12/18 18:09 HPI/ROS: CHIEF COMPLAINT: Nausea and vomiting HISTORY OF PRESENT ILLNESS: Patient has history of breast cancer pacemaker and atrial fibrillation and lupus. Presents today with nausea and weakness which started yesterday evening. Continues today and symptoms are moderate to severe , associated with being thirsty, worse when she tried to eat soup. 2 episodes of diarrhea but no abdominal pain and no syncope. REVIEW OF SYSTEMS: Eye: no change in vision ENT: no sore throat Cardiac: no chest pain or syncope Pulmonary: no cough or SOB Abdomen: HPI. Musculoskeletal: no back pain Skin: no rash Neuro: no headache Constitutional: no fever : no urinary symptoms A comprehensive 10 point review of systems is otherwise negative aside from elements mentioned in the history of present illness. PAST MEDICAL HISTORY: Discharge summary dated 09/24/2017 personally reviewed includes breast cancer, hyponatremia, pacemaker with atrial fibrillation, hypothyroid, lupus, hypertension Social history: Here with her daughter, she was exposed to her grandson last week with similar symptoms General Appearance: Alert and conversant, cooperative. Eyes: No scleral icterus. ENT, Mouth: Dry mucous membranes. Respiratory: Normal respiratory effort, breath sounds equal, lungs are clear to auscultation. Cardiovascular: Distant heart sounds but no murmur. Gastrointestinal: Abdomen is soft and non tender. Neurological: Alert, face symmetric, normal motor and sensory in extremities. Skin: Warm and dry, no rashes. Musculoskeletal: No peripheral edema. Psychiatric: Not agitated. Emergency Department course/MDM: Normal saline 1 L IV, Zofran 4 mg IV chemistry panel. 1934: WBC 28393, does not clinically have evidence of infection right now. Would check urinalysis and stool sample. He certainly would be explainable by her severe vomiting. Hyponatremic at sodium 126, discussed with Dr. Booth from hospitalist service will admit for continued evaluation and treatment. Smoking Status: Never smoked Constitutional: Initial Vital Signs Temperature (C) 36.8 C 07/12/18 18:01 Heart Rate 80 07/12/18 18:01 Respiratory Rate 18 07/12/18 18:01 Blood Pressure 130/65 H 07/12/18 18:01 O2 Sat (%) 94 07/12/18 18:01 O2 Delivery Mode Room Air Allergies/Adverse Reactions: No Known Allergies Allergy (Verified 08/21/17 12:32) Home Medications: Medication Instructions Recorded Apixaban [Eliquis] 2.5 mg PO BID 07/12/18 Exemestane 25 mg PO HS 07/12/18 Furosemide [Lasix 20 MG (*)] 20 mg PO DAILY PRN 07/12/18 Hydrochlorothiazide [HCTZ (*)] 12.5 mg PO DAILY 07/12/18 Lisinopril [Zestril 5 mg (*)] 5 mg PO BID 07/12/18 Nebivolol HCl [Bystolic 5 mg (*)] 5 mg PO BID 07/12/18 Potassium Chloride [Klor-Con M20] 20 meq PO DAILY PRN 07/12/18 Medical Decision Making Differential Diagnosis: Differential for vomiting considered including but not limited to viral gastroenteritis, bowel obstruction, UTI pyelonephritis, metabolic. - Data Points Laboratory Results: Laboratory Results 07/12/18 18:35 07/12/18 18:35 07/12/18 07/12/18 18:35 18:35 WBC 26.96 10^3/uL H 10^3/uL (3.80-9.50) RBC 3.66 10^6/uL L 10^6/uL (4.18-5.33) Hgb 12.7 g/dL g/dL (12.6-16.3) Hct 36.2 % L % (38.0-47.0) MCV 98.9 fL fL (81.5-99.8) MCH 34.7 pg H pg (27.9-34.1) MCHC 35.1 g/dL g/dL (32.4-36.7) RDW 13.2 % % (11.5-15.2) Plt Count 150 10^3/uL 10^3/uL (150-400) MPV 9.9 fL fL (8.7-11.7) Neut % (Auto) Not Reported Lymph % (Auto) Not Reported [place] % (Auto) Not Reported Eos % (Auto) Not Reported Baso % (Auto) Not Reported Nucleat RBC Rel Count Not Reported Absolute Neuts (auto) Not Reported Absolute Lymphs (auto) Not Reported Absolute Monos (auto) Not Reported Absolute Eos (auto) Not Reported Absolute Basos (auto) Not Reported Absolute Nucleated RBC Not Reported Immature Gran % Not Reported Seg Neutrophils % 89.0 % % Band Neutrophils % 3.0 % % Lymphocytes % 2.0 % % Monocytes % 6.0 % % Eosinophils % 0.0 % % Basophils % 0.0 % % Metamyelocytes % 0.0 % % Myelocytes % 0.0 % % Promyelocytes % 0.0 % % Blast Cells % 0.0 % % Immature Gran # Not Reported Absolute Seg Neuts 23.99 10^3/uL H 10^3/uL (1.70-6.50) Absolute Band Neuts 0.81 10^3/uL H 10^3/uL (0.00-0.70) Absolute Lymphocytes 0.54 10^3/uL L 10^3/uL (1.00-3.00) Absolute Monocytes 1.62 10^3/uL H 10^3/uL (0.30-0.80) Absolute Eosinophils 0.00 10^3/uL L 10^3/uL (0.03-0.40) Absolute Basophils 0.00 10^3/uL L 10^3/uL (0.02-0.10) Absolute Metamyelocyte 0.00 10^3/mL 10^3/mL (0.00-0.00) Absolute Myelocytes 0.00 10^3/mL 10^3/mL (0.00-0.00) Absolute Promyelocytes 0.00 10^3/uL 10^3/uL (0.00-0.00) Absolute Plasma Cells 0.00 10^3/uL 10^3/uL (0.00-0.00) Nucleated RBCs 0 /100 WBC /100 WBC (0-0) Absolute Blast Cells 0.00 10^3/uL 10^3/uL (0.00-0.00) Plasma Cells % 0.0 % % Platelet Estimate ADEQUATE (ADEQ) Tear Drop Cells 1+ H Elliptocytes 1+ H Sodium 126 mEq/L L mEq/L (135-145) Potassium 3.6 mEq/L mEq/L (3.5-5.2) Chloride 92 mEq/L L mEq/L (97-110) Carbon Dioxide 22 mEq/l mEq/l (22-31) Anion Gap 12 mEq/L mEq/L (6-14) BUN 22 mg/dL mg/dL (7-23) Creatinine 1.1 mg/dL H mg/dL (0.6-1.0) Estimated GFR 47 Glucose 157 mg/dL H mg/dL (70-100) Calcium 9.3 mg/dL mg/dL (8.5-10.4) Medications Given: Sodium Chloride (Ns) 1,000 mls @ 100 mls/hr IV CONT ELSA Stop: 01/08/19 20:29 Last Admin: 07/12/18 21:18 Dose: 1,000 mls Discontinued Medications Sodium Chloride (Ns) 1,000 mls @ 0 mls/hr IV EDNOW ONE; Wide Open PRN Reason: Protocol Stop: 07/12/18 18:27 Last Admin: 07/12/18 18:45 Dose: 1,000 mls Ondansetron HCl (Zofran) 4 mg IVP EDNOW ONE Stop: 07/12/18 18:27 Last Admin: 07/12/18 18:46 Dose: 4 mg Departure - Departure Disposition: [facility] Acute Clinical Impression: Dehydration, Hyponatremia Condition: Fair
[2018-07-12 18:45] LABS: PLATELET COUNT 150 10^3/uL (150-400)
[2018-07-12] MEDS ORDERED: ONDANSETRON DISINTEGRATING 4 MG TAB PO PRN (20:22)
[2018-07-12] MEDS ORDERED: ONDANSETRON 4 MG/2 ML VIAL IVP PRN (20:22)
[2018-07-12] MEDS ORDERED: oxyCODONE IR 5 MG TAB PO PRN (20:22)
[2018-07-12] MEDS ORDERED: PROMETHAZINE HCL 25 MG/ML INJ IVP PRN (20:22)
[2018-07-12] MEDS ORDERED: POTASSIUM CL 20 MEQ TAB PO PRN (20:24)
--- NOTE | 2018-07-12 21:16 | PDGENHP ---
History and Physical - Chief Complaint nausea/vomiting/diarrhea - History of Present Illness 83 yo F with PMH of breast cancer, a fib and hypothyroid presenting with 2 days of n/v/d and weakness. She notes she was with her 14 year old grandson last week who had very similar symptoms. Yesterday she developed nausea and had a few episodes of vomiting and diarrhea. She has not been able to eat very much due to these sxs. She has been very weak, so much so that today she felt as if she basically could not walk. Prior to this she felt well and in her usual state of health. No fever or chills, no sob or cough, no chest pain or palpitations. History Information - Allergies/Home Medication List Allergies/Adverse Reactions: No Known Allergies Allergy (Verified 08/21/17 12:32) Home Medications: Apixaban [Eliquis] 2.5 mg PO BID 07/12/18 [Last Taken 07/12/18 AM] Exemestane 25 mg PO HS 07/12/18 [Last Taken 07/11/18] Furosemide [Lasix 20 MG (*)] 20 mg PO DAILY PRN 07/12/18 [Last Taken Unknown] Hydrochlorothiazide [HCTZ (*)] 12.5 mg PO DAILY 07/12/18 [Last Taken 07/12/18] Lisinopril [Zestril 5 mg (*)] 5 mg PO BID 07/12/18 [Last Taken 07/12/18 AM] Nebivolol HCl [Bystolic 5 mg (*)] 5 mg PO BID 07/12/18 [Last Taken 07/12/18 AM] Potassium Chloride [Klor-Con M20] 20 meq PO DAILY PRN 07/12/18 [Last Taken Unknown] I have personally reviewed and updated: family history, medical history, social history, surgical history - Past Medical History atrial fibrillation, cancer (breast cancer--sp lumpectomy then mastectomy and s/ p xrt and chemo), psychiatric history (anxiety) Additional medical history: hypothyroid. systemic lupus. xrt pneumonitis - Surgical History Reports: cancer surgery, pacemaker/AICD - Family History Positive for: non-pertinent - Social History Smoking Status: Never smoked Alcohol Use: Rarely Drug Use: None Additional social history: , lives alone Review of Systems Review of Systems: ROS: 10pt was reviewed & negative except for what was stated in HPI & below Physical Exam Physical Exam: Temp Pulse Resp BP Pulse Ox 37.1 C 65 16 119/58 L 91 L 07/12/18 20:54 07/12/18 20:54 07/12/18 20:54 07/12/18 20:54 07/12/18 20:54 O2 (L/minute) 1 Constitutional: no apparent distress, appears nourished Eyes: PERRL, anicteric sclera Ears, Nose, Mouth, Throat: dry mucous membranes Cardiovascular: regular rate and rhythym, no murmur, rub, or gallop, No edema Respiratory: no respiratory distress, no rales or rhonchi Gastrointestinal: soft, non-tender abdomen, No normoactive bowel sounds, No guarding, No rebound Genitourinary: no bladder tenderness Skin: warm, normal color Musculoskeletal: full muscle strength Neurologic: AAOx3 Psychiatric: interacting appropriately, not anxious Lab Data & Imaging Review 07/12/18 18:35 07/12/18 18:35 WBC 26.96 10^3/uL (3.80-9.50) H 07/12/18 18:35 RBC 3.66 10^6/uL (4.18-5.33) L 07/12/18 18:35 Hgb 12.7 g/dL (12.6-16.3) 07/12/18 18:35 Hct 36.2 % (38.0-47.0) L 07/12/18 18:35 MCV 98.9 fL (81.5-99.8) 07/12/18 18:35 MCH 34.7 pg (27.9-34.1) H 18 18:35 MCHC 35.1 g/dL (32.4-36.7) 07/12/18 18:35 RDW 13.2 % (11.5-15.2) 07/12/18 18:35 Plt Count 150 10^3/uL (150-400) 18 18:35 MPV 9.9 fL (8.7-11.7) 18 18:35 Neut % (Auto) Not Reported 07/12/18 18:35 Lymph % (Auto) Not Reported 07/12/18 18:35 [place] % (Auto) Not Reported 12/18/18 18:35 Eos % (Auto) Not Reported 18 18:35 Baso % (Auto) Not Reported 07/12/18 18:35 Nucleat RBC Rel Count Not Reported 07/12/18 18:35 Absolute Neuts (auto) Not Reported 18 18:35 Absolute Lymphs (auto) Not Reported 1818 18:35 Absolute Monos (auto) Not Reported 07/12/18 18:35 Absolute Eos (auto) Not Reported 07/12/18 18:35 Absolute Basos (auto) Not Reported 18 18:35 Absolute Nucleated RBC Not Reported 1818 18:35 Immature Gran % Not Reported 07/12/18 18:35 Seg Neutrophils % 89.0 % 07/12/18 18:35 Band Neutrophils % 3.0 % 18 18:35 Lymphocytes % 2.0 % 1818 18:35 Monocytes % 6.0 % 07/12/18 18:35 Eosinophils % 0.0 % 07/12/18 18:35 Basophils % 0.0 % 07/12/18 18:35 Metamyelocytes % 0.0 % 18 18:35 Myelocytes % 0.0 % 18 18:35 Promyelocytes % 0.0 % 07/12/18 18:35 Blast Cells % 0.0 % 1818 18:35 Immature Gran # Not Reported 1818 18:35 Absolute Seg Neuts 23.99 10^3/uL (1.70-6.50) H 18 18:35 Absolute Band Neuts 0.81 10^3/uL (0.00-0.70) H 18/18 18:35 Absolute Lymphocytes 0.54 10^3/uL (1.00-3.00) L 18 18:35 Absolute Monocytes 1.62 10^3/uL (0.30-0.80) H 1818 18:35 Absolute Eosinophils 0.00 10^3/uL (0.03-0.40) L 1818 18:35 Absolute Basophils 0.00 10^3/uL (0.02-0.10) L 18 18:35 Absolute Metamyelocyte 0.00 10^3/mL (0.00-0.00) 18 18:35 Absolute Myelocytes 0.00 10^3/mL (0.00-0.00) 07/12/18 18:35 Absolute Promyelocytes 0.00 10^3/uL (0.00-0.00) 07/12/18 18:35 Absolute Plasma Cells 0.00 10^3/uL (0.00-0.00) 07/12/18 18:35 Nucleated RBCs 0 /100 WBC (0-0) 07/12/18 18:35 Absolute Blast Cells 0.00 10^3/uL (0.00-0.00) 07/12/18 18:35 Plasma Cells % 0.0 % 07/12/18 18:35 Platelet Estimate ADEQUATE (ADEQ) 07/12/18 18:35 Tear Drop Cells 1+ H 07/12/18 18:35 Elliptocytes 1+ H 07/12/18 18:35 Sodium 126 mEq/L (135-145) L 07/12/18 18:35 Potassium 3.6 mEq/L (3.5-5.2) 07/12/18 18:35 Chloride 92 mEq/L (97-110) L 07/12/18 18:35 Carbon Dioxide 22 mEq/l (22-31) 07/12/18 18:35 Anion Gap 12 mEq/L (6-14) 1818 18:35 BUN 22 mg/dL (7-23) 18 18:35 Creatinine 1.1 mg/dL (0.6-1.0) H 07/12/18 18:35 Estimated GFR 47 07/12/18 18:35 Glucose 157 mg/dL (70-100) H 18 18:35 Calcium 9.3 mg/dL (8.5-10.4) 07/12/18 18:35 Assessment & Plan Assessment: Dehydration (Acute) Hyponatremia (Acute) 83 yo F with PMH of breast cancer admitted with n/v/diarrhea and dehydration # n/v/d: in setting of being exposed to grandson with similar sxs and presumably due to viral gastroenteritis,particularly norovirus which has been prevalent of late. Will treat conservatively with IVF, antiemetics and check GI pathogen panel. # leukocytosis: significantly elevated and in the setting of above, but elevated beyond what would be expected. Again suspect this is a viral etiology and no other localizing sxs, not starting abx given presumed viral at this time. Will check gi pathogen panel as above, including c diff. Will trend # hyponatremia: hypovolemic hyponatremia in setting of above, will start IVF and monitor. Will hold lasix/hctz # rachel: seems like usual baseline closer to 0.9, in setting of hypovolemia as above, holding diuretics (on both lasix and hctz) and will hold lisinopril for now # breast cancer: with relatively recent recurrence, currently being treated with aromasin which will be continued # hypothyroid: continue lt4 # observation status # FC # Patient new to my care. Old records reviewed and summarized as above. Care plan reviewed with ER doctor, further hx obtained from patients daughter present at bedside.
[2018-07-12] MEDS: NS 1,000 ML IV SCH (21:18)
[2018-07-12] MEDS: APIXABAN 2.5 MG TAB PO SCH (21:41)
[2018-07-12] MEDS: NEBIVOLOL HCL 5 MG TAB PO SCH (21:41)
[2018-07-12] MEDS: EXEMESTANE 25 MG TAB PO SCH (21:41)
[2018-07-13] MEDS: SODIUM CL NASAL 45 ML BTL EACHNARE PRN ×2 (00:28→08:35)
[2018-07-13] MEDS: ACETAMINOPHEN 325 MG TAB PO PRN ×4 (00:55→21:39)
[2018-07-13] MEDS: HYDROCODONE/APAP 5/325 TAB PO PRN (05:10)
[2018-07-13 05:54] LABS: PLATELET COUNT 127 10^3/uL (150-400)
[2018-07-13] MEDS: NEBIVOLOL HCL 5 MG TAB PO SCH ×2 (08:35→20:04)
[2018-07-13] MEDS: APIXABAN 2.5 MG TAB PO SCH ×2 (08:35→20:04)
--- NOTE | 2018-07-13 08:58 | HOSPPROG ---
Hospitalist Progress Note Assessment/Plan: 83 yo F with PMH of breast cancer admitted with n/v/diarrhea and dehydration. First encounter, chart reviewed. # n/v/d (probable viral gastroenteritis) -her grandson had similar symptoms. -no further n, v or diarrhea -having increase weakness and overall feels poor -gi pathogen if she has any further diarrhea #fever w leukocytosis -check a respiratory panel and get blood cx -ua w a few wbc but has no symptoms *hyponatremia -hypovolemic (she has not been eating or drinking much) -continue holding diuretics *rachel -improved *HTN -hx of uncontrolled htn, she is very concerned about this -resumed Lisinopril *breast ca -recurrent, on Aromasin *hypothyroid -cont synthroid *anxiety *Plan: with high wbc count, fever; will need another midnight stay to further evaluate. This will make her IP status. Subjective: Naomy feels poorly today; feels extremely fatigued. Objective: Vital Signs Temp Pulse Resp BP Pulse Ox 39.3 C H 83 16 142/68 H 94 07/13/18 08:00 07/13/18 08:00 07/13/18 08:00 07/13/18 08:00 07/13/18 08:00 Laboratory Results 07/13/18 05:10 07/13/18 05:10 07/12/18 07/13/18 07/14/18 05:59 05:59 05:59 Intake Total 150 Output Total 350 Balance -200 - Physical Exam Constitutional: uncomfortable Eyes: PERRL Ears, Nose, Mouth, Throat: hearing normal Cardiovascular: regular rate and rhythym Respiratory: no respiratory distress, reduced air movement Gastrointestinal: soft, non-tender abdomen Skin: warm Musculoskeletal: generalized weakness Neurologic: AAOx3 Psychiatric: interacting appropriately ICD10 Worksheet Patient Problems: Problems Problem Status Onset Dehydration Acute Hyponatremia Acute Anemia Acute Breast cancer Acute Fever Acute Headache Acute Hypertension Acute Hypertensive emergency Acute TIA (transient ischemic attack) Acute chronic disease mgmt/Transitional care Acute
[2018-07-13] MEDS: LISINOPRIL 5 MG TAB PO SCH ×2 (12:10→20:04)
--- NOTE | 2018-07-13 15:39 | ASMTCMCOM ---
CM Note CM Note Notes: Pt admitted to hospital for n/v/dehydration after spending time with grandson with same symptoms. She has a hx of breast ca. Pt lives alone in home and has a local dtr, dc needs TBD. DC Plan: TBD Date Signed: 07/13/2018 03:37 PM Electronically Signed By:Jeanie Monae RN
[2018-07-13] MEDS: NS 1,000 ML IV SCH (15:51)
[2018-07-13] MEDS ORDERED: IOPAMIDOL (ISOVUE-300) 100 ML BTL ONE (17:14)
--- NOTE | 2018-07-13 18:20 | PDMN ---
Medical Necessity Medical necessity: [facility] Systemic or Infectious Condition: 83 yo presents w / n/v/d and weakness dx w/ viral gastroenteritis. Initially OBS but developed fever (39.2C) w/ rigors today during hospitalization, pt c/o increasing weakness , CXR ordered and concerning for empyema, ordering chest CT. WBC cont to be elevated >20. BC and Urine Cx pending. Pt remains on IVF, started on O2. Per [employer] "with high wbc count, fever; will need another midnight stay to further evaluate. This will make her IP status.". Meets [facility] IP criteria for [facility] w/ worsening s/sx infection despite obs care, possible empyema, cont need for IVF, dx testing and monitoring for additional MN. hx breast ca s/p rad tx and chemo , afib, hypothyroid, systemic lupus. Change to IP status 07/13/18 @1353 per [employer] order.
[2018-07-13] MEDS ORDERED: IBUPROFEN 200 MG TAB PO PRN (19:57)
[2018-07-13] MEDS: EXEMESTANE 25 MG TAB PO SCH (20:04)
--- NOTE | 2018-07-13 20:44 | HOSPPROG ---
Hospitalist Progress Note Assessment/Plan: Followed up on chest CT--c/w RUL PNA. Started ctx/azithro for CAP, noted procalcitonin elevated, patient febrile, tachycardic. Will add lactate, lfts. Objective: Vital Signs Temp Pulse Resp BP Pulse Ox 39.2 C H 86 16 144/69 H 90 L 07/13/18 19:37 07/13/18 19:37 07/13/18 19:37 07/13/18 19:37 07/13/18 19:37 07/12/18 07/13/18 07/14/18 05:59 05:59 05:59 Intake Total 1440 Output Total 1200 Balance 240 ICD10 Worksheet Patient Problems: Problems Problem Status Onset Hyponatremia Acute chronic disease mgmt/Transitional care Acute Breast cancer Acute Headache Acute Hypertension Acute TIA (transient ischemic attack) Acute Hypertensive emergency Acute Anemia Acute Dehydration Acute Fever Acute
[2018-07-13] MEDS ORDERED: AZITHROMYCIN IV 500 MG in NS 250 ML IV SCH (21:00)
[2018-07-14 04:52] LABS: PLATELET COUNT 112 10^3/uL (150-400)
[2018-07-14] MEDS: NEBIVOLOL HCL 5 MG TAB PO SCH ×2 (08:03→20:08)
[2018-07-14] MEDS: APIXABAN 2.5 MG TAB PO SCH ×2 (08:03→20:08)
--- NOTE | 2018-07-14 09:03 | HOSPPROG ---
Hospitalist Progress Note Assessment/Plan: 83 yo F with PMH of breast cancer admitted with n/v/diarrhea and dehydration. #bacteremia due to pneumococcal pna -ceftriaxone -Dr Suarez to see -CT scan shows a right upper lobe pna #sepsis due to this -febrile, leukocytosis # n/v/d (probable viral gastroenteritis) -resolved #fever w leukocytosis -fever is better today, wbc count trending down *hyponatremia -hypovolemic (she has not been eating or drinking much) -continue holding diuretics *rachel -resolved *HTN -hx of uncontrolled htn -resumed Lisinopril -have not resumed diuretics *breast ca -recurrent, on Aromasin *hypothyroid -cont synthroid *anxiety *Plan: Dr Erick matos to see. Subjective: Naomy is feeling better today. Objective: Vital Signs Temp Pulse Resp BP Pulse Ox 37.6 C 61 18 106/48 L 97 07/14/18 07:36 07/14/18 07:36 07/14/18 07:36 07/14/18 08:03 07/14/18 07:36 Laboratory Results 07/14/18 04:32 07/14/18 04:32 07/13/18 07/14/18 07/15/18 05:59 05:59 05:59 Intake Total 1440 240 Output Total 1600 Balance -160 240 - Physical Exam Constitutional: appears nourished Eyes: PERRL Ears, Nose, Mouth, Throat: hearing normal Cardiovascular: regular rate and rhythym Respiratory: no respiratory distress Skin: warm Musculoskeletal: full muscle strength Neurologic: AAOx3 Psychiatric: interacting appropriately ICD10 Worksheet Patient Problems: Problems Problem Status Onset Dehydration Acute Hyponatremia Acute Anemia Acute Breast cancer Acute Fever Acute Headache Acute Hypertension Acute Hypertensive emergency Acute TIA (transient ischemic attack) Acute chronic disease mgmt/Transitional care Acute
[2018-07-14] MEDS: LISINOPRIL 5 MG TAB PO SCH ×3 (09:41→20:08)
--- NOTE | 2018-07-14 11:19 | GCON ---
INFECTIOUS DISEASE CONSULTATION DATE OF CONSULTATION: 07/14/2018 REFERRING PHYSICIAN: Karen Kumar NP REASON FOR CONSULTATION: To assist in the management of this 83-year-old female with invasive pneumococcal pneumonia. HISTORY OF PRESENT ILLNESS: Mrs. Trinh is a very pleasant 83-year-old female whose previous medical history is notable for the followin. Anxiety. 2. Breast cancer. History of lumpectomy followed by mastectomy with radiation and chemotherapy. 3. Hypothyroidism. 4. Atrial fibrillation. 5. 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 Tani Sargent. 6. History of XRT related pneumonitis. PREVIOUS SURGICAL HISTORY: 1. Pacemaker/AICD placement 7 years ago. 2. Mastectomy. 3. Cholecystectomy. Regarding her present issues, the patient was in her usual state of health until this past Wednesday, when she went to the gym as she usually does, and after her workout began to feel extremely tired and unwell. She states that she had no cough, shortness of breath or abdominal symptoms, and no tactile fevers, but did have chills and decreased appetite. No nausea, vomiting, or sore throat. Because of her ongoing fatigue and generalized malaise, she presented to [facility] on the evening of July 12. She was afebrile in the emergency room, with a stable blood pressure and oxygen saturation of 94% on room air. Notably however, her white blood cell count was 26,000. The patient was admitted to the hospitalist service with a diagnosis of "nausea, vomiting, and dehydration." She was thought perhaps to have a viral gastroenteritis as she had 2 episodes of loose stool. No antibiotics were begun. The next morning, patient spiked a fever to 39, prompting blood cultures and a chest x-ray that revealed right upper lobe consolidation and right pleural effusion. Given concern for underlying empyema, a chest CT without contrast was performed that I reviewed with Dr. Perrin. There is no evidence of empyema; there is a very small right pleural effusion. She has extensive consolidation in the right upper lobe. Also of note, blood cultures drawn the morning after admission rapidly grew Gram-positive cocci in chains, subsequently identified as Streptococcus pneumoniae in 2/4 bottles. The patient was empirically started on ceftriaxone 1 g IV daily and azithromycin 500 mg IV daily when blood cultures turned positive. I am now asked to assist in her management. In speaking with the patient today, she tells me that she had a short course of prednisone, 5 mg for [address] Sargent for some arthralgias she was experiencing in her right hand and difficulty making a fist. The patient also tells me she has a Dupuytren contracture, and the steroids "greatly helped. " This was approximately 2 weeks ago. In so far as vaccines are concerned, the patient expressed a morbid fear of vaccines, especially the flu vaccine and tells me she will never get that. She has never had it previously. Regarding Prevnar 13 and Pneumovax, she reports never having had those either given her strong fear of vaccines. She denies any antecedent viral illness. No recent travel. Prior to this, she was feeling well. PREVIOUS MEDICAL HISTORY: As outlined above. ALLERGIES: No known drug allergies. 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 She lived in [place] where 1 of her daughters lives for many years, and moved to [place] 3 years ago. No history of tobacco, alcohol, or illicit substances. She has no pets. No recent travel. She is not sexually active in any way. FAMILY HISTORY: Notable for diabetes. REVIEW OF SYSTEMS: Notable for some anorexia and previous shaking chills, but she denies cough or shortness of breath. She does have some mild pain when she takes a deep breath in her right lower lung area. This is improving. She denies any headache, confusion, rashes, or other. No focal weakness. Aside from what is outlined above, 10 systems reviewed, and all are negative. PHYSICAL EXAMINATION: VITAL SIGNS: T-current 37.6, T-max 39.4, heart rate 61, blood pressure 106/48, 97% on 2 L. General: Looks younger than stated age. HEENT: Atraumatic, normocephalic. Pupils equal, round, reactive to light. Extraocular movements are intact. No conjunctival injection, icterus, or petechiae. No evidence of hypopyon in either eye. NECK: Supple. Mucous membranes are moist. No oral lesions noted. Dentition in excellent repair. No cervical or supraclavicular lymphadenopathy. CARDIOVASCULAR: S1, S2. No rubs, gallops, or murmurs. The patient has a pacer generator in her left upper chest that is without erythema or tenderness. The right chest wall has a bony defect on the right side consistent with prior surgery there. LUNGS: Notable for no increased respiratory effort. The patient has diminished lung sounds in the right upper lobe, otherwise her lungs are clear. No rubs are audible. ABDOMEN: Soft. No organomegaly or tenderness to palpation. EXTREMITIES: The patient has some varicosities noted over her right knee, otherwise no obvious joint swelling or tenderness. No clubbing, cyanosis, or edema. The patient has a peripheral IV in her left arm that looks fine. SKIN: Warm and dry. No rashes. No stigmata of endocarditis. NEUROLOGIC: She is alert and oriented x3. No focal deficits. DATA REVIEWED: Lab data: Blood cultures x2 on July 13, 08/29 bottles are growing gram-positive cocci in chains that has been identified as Streptococcus pneumoniae. Respiratory pathogen PCR was negative. Urine culture is pending, although the patient has no urinary symptoms. White blood cell count of 19.6, down from 26.9 on admission, hematocrit 33, platelet count of 112, 83% neutrophils, 9% bands. BUN and creatinine 21/1.0. Liver function tests are within normal limits. Albumin of 2.8, calcium of 8.5. Radiographic data as outlined in the HPI. IMPRESSION: 83-year-old immunocompromised female with a pacemaker who presents with invasive pneumococcal pneumonia and bacteremia. There is no evidence of meningitis, endocarditis, or septic arthritis. Her immunosuppression and age put her at increased risk for this disease. No risk factors for HIV, and no laboratory findings concerning for multiple myeloma. It is interesting to note that this patient had a complete absence of respiratory symptoms, which is not uncommon in the elderly who present with pneumonia. PLANS: 1. Continue ceftriaxone, but increase dose to 2 g IV daily. 2. Discontinue Azithromycin. 3. Repeat blood cultures tomorrow. It should be noted that the patient has a pacer in place. Would recommend echocardiogram if blood cultures do not clear promptly. 4. I do have a strong concern about transitioning this patient to an oral respiratory fluoroquinolone moving forward given her severe underlying anxiety, which can be exacerbated by fluoroquinolones. She also has a recent history of prednisone use, which can increase her risk moving forward of tendinopathy/ tendon rupture. She may need a PICC line, and a course of ceftriaxone. 5. Regarding vaccines, I had a long conversation with this patient about the Prevnar 13 and Pneumovax. She is willing to get the Prevnar 13 prior to discharge. (Order placed) She adamantly refuses a flu vaccine. Will need a Pneumovax in 6-12 months. Thank you very much for consulting Infectious Diseases. We will continue to follow this patient with you. /[id number]/MODL MTDD
[2018-07-14] MEDS: EXEMESTANE 25 MG TAB PO SCH (20:08)
[2018-07-15] MEDS: ACETAMINOPHEN 325 MG TAB PO PRN (05:03)
[2018-07-15] MEDS ORDERED: FUROSEMIDE 20 MG TAB PO PRN (08:24)
--- NOTE | 2018-07-15 08:31 | HOSPPROG ---
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 senior care abx plan (FQ vs rocephin) - repeat BCx pending - ppm noted # sepsis d/t bacteremia - resolving - evidence of DIC (thrombocytopenia, elev indirect bili) by labs # immunosuppression - history of lupus # viral gastroenteritis - resolved # htn - restart all home meds (lisinopril, hctz, lasix) # hypoNa - improving # mild renal insufficiency - noted she is receiving ibup however SCr improving - follow tomorrow # hx breast cancer - cont aromasin # hypothyroid - synthroid # hx anxiety Subjective: feels well today; no cough; ambulating but weaker than normal; no more "gurgling" in her R lung and R chest pain has resolved Objective: Vital Signs Temp Pulse Resp BP Pulse Ox 37.1 C 61 16 163/83 H 94 07/15/18 07:55 07/15/18 07:55 07/15/18 07:55 07/15/18 07:55 07/15/18 07:55 Laboratory Results 07/14/18 04:32 07/14/18 04:32 07/14/18 07/15/18 07/16/18 05:59 05:59 05:59 Intake Total 1440 1140 Output Total 1600 1500 Balance -160 -[address] personally reviewed - Physical Exam Constitutional: no apparent distress, appears nourished Cardiovascular: regular rate and rhythym, no murmur, rub, or gallop Respiratory: no respiratory distress, inspiratory crackles (R sided), No reduced air movement, No bronchial breath sounds, No aegophony Gastrointestinal: normoactive bowel sounds, soft, non-tender abdomen, no palpable masses, No tenderness, No guarding, No rebound ICD10 Worksheet Patient Problems: Problems Problem Status Onset Hyponatremia Acute chronic disease mgmt/Transitional care Acute Breast cancer Acute Headache Acute Hypertension Acute TIA (transient ischemic attack) Acute Hypertensive emergency Acute Anemia Acute Dehydration Acute Fever Acute
[2018-07-15] MEDS: LISINOPRIL 5 MG TAB PO SCH ×2 (09:13→21:51)
[2018-07-15] MEDS: HYDROCHLOROTHIAZIDE 12.5 MG CAP PO SCH (09:13)
[2018-07-15] MEDS: APIXABAN 2.5 MG TAB PO SCH ×2 (09:14→21:52)
[2018-07-15] MEDS: NEBIVOLOL HCL 5 MG TAB PO SCH ×2 (09:14→21:51)
[2018-07-15] MEDS ORDERED: PNEUMOC 13-VAL CONJ-DIP CRM/PF 0.5 ML SYR (PREVNAR 13) IM ONE (10:00)
--- NOTE | 2018-07-15 15:35 | ASMTCMCOM ---
CM Note CM Note Notes: PT worked with pt and cleared her for home, anticipate pt will dc home w/support of daughter when medically stable. CM available for any changes. DC Plan: Independent Date Signed: 07/15/2018 03:34 PM Electronically Signed By:Jeanie Monae RN
--- NOTE | 2018-07-15 18:49 | PCMIDPN ---
Assessment/Plan: Assessment/Plan: * Invasive pneumococcal disease due to right upper lobe pneumonia: Clinically improved with ceftriaxone therapy. Leukocytosis is decreasing. Patient with resolving pleuritic chest pain. Continue ceftriaxone pending susceptibilities although pneumococcal isolates typically are susceptible to ceftriaxone. Discussed with patient treatment options moving forward and she favors receipt of IV ceftriaxone on [facility]. Anticipate 10 day course of therapy. Continue to follow clinical response with ongoing antibiotic therapy. Repeat blood cultures are pending to ensure clearance of bacteremia given prominent murmur and presence of pacemaker although pneumococcal endocarditis is uncommon. 07/15/18 18:46 Subjective: Patient feels clinically improved. Describes pleuritic chest pain overnight which has not been present during course of day. No cough. Appetite is improving. Objective: Vital Signs Temp Pulse Resp BP Pulse Ox 37.2 C 68 16 146/80 H 93 07/15/18 16:00 07/15/18 16:00 07/15/18 07:55 07/15/18 16:00 07/15/18 16:00 Microbiology 07/13/18 15:22 Urine Culture - Final Urine,Clean Catch Four [place] Types Gram Neg Angelo Lactose [employer] Laboratory Results 07/14/18 04:32 07/14/18 04:32 07/14/18 07/15/18 07/16/18 05:59 05:59 05:59 Intake Total 1440 1140 300 Output Total 1600 1500 Balance -160 -360 300 Ceftriaxone # 3 Blood cultures 2/2 Streptococcus pneumoniae Blood cultures 07/15/2018 pending - Physical Exam General Appearance: alert, no apparent distress EENT: No scleral icterus, No thrush, No conjunctival petechiae Respiratory: crackles (Right upper lung field), No pleural rub Cardiac/Chest: regular rate, rhythm, systolic murmur (3/6 left upper and right upper sternal border), other (Pacemaker site nontender without erythema) Extremities: No inflammation Abdomen: non-tender, No distended Skin: No embolic lesions Neuro/Psych: No confused ICD10 Worksheet Patient Problems: Problems Problem Status Onset Dehydration Acute Hyponatremia Acute Anemia Acute Breast cancer Acute Fever Acute Headache Acute Hypertension Acute Hypertensive emergency Acute TIA (transient ischemic attack) Acute chronic disease mgmt/Transitional care Acute
[2018-07-15] MEDS: EXEMESTANE 25 MG TAB PO SCH (21:52)
[2018-07-16] MEDS ORDERED: LISINOPRIL 5 MG TAB PO ONE (03:30)
[2018-07-16] MEDS: HYDROCODONE/APAP 5/325 TAB PO PRN ×2 (03:47→20:51)
[2018-07-16 05:54] LABS: PLATELET COUNT 171 10^3/uL (150-400)
[2018-07-16] MEDS ORDERED: POTASSIUM CL 20 MEQ TAB PO ONE (06:30)
[2018-07-16] MEDS: NEBIVOLOL HCL 5 MG TAB PO SCH ×2 (09:22→20:48)
[2018-07-16] MEDS: APIXABAN 2.5 MG TAB PO SCH ×2 (09:22→20:48)
[2018-07-16] MEDS: LISINOPRIL 5 MG TAB PO SCH ×2 (09:22→20:47)
[2018-07-16] MEDS: HYDROCHLOROTHIAZIDE 12.5 MG CAP PO SCH (09:22)
--- NOTE | 2018-07-16 09:53 | HOSPPROG ---
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 hairspring cutter abx plan (FQ vs rocephin) - repeat BCx NGTD - ppm noted # sepsis d/t bacteremia - resolved - evidence of DIC (thrombocytopenia, elev indirect bili) by labs # immunosuppression - history of lupus; off plaquenil recently # viral gastroenteritis - resolved # htn - restart all home meds (lisinopril, hctz, bystolic) - added clonidine prn # a-fib - eliquis, bysolic # hypoNa - improving # mild renal insufficiency - noted she is receiving ibup however SCr improving - follow tomorrow # hx breast cancer - cont aromasin # hypothyroid - synthroid # hx anxiety Subjective: very frustrated with not being able to get clonidine overnight (she usually takes this prn); pleuritic CP improved Objective: Vital Signs Temp Pulse Resp BP Pulse Ox 36.5 C 64 16 134/76 H 93 07/16/18 08:26 07/16/18 09:22 07/16/18 08:26 07/16/18 09:22 07/16/18 08:26 Microbiology 07/13/18 15:22 Urine Culture - Final Urine,Clean Catch Four [place] Types Gram Neg Angelo Lactose [employer] Laboratory Results 07/16/18 04:47 07/16/18 04:47 07/15/18 07/16/18 07/17/18 05:59 05:59 05:59 Intake Total 1140 500 Output Total 1500 600 Balance -360 500 -600 - Physical Exam Constitutional: no apparent distress, appears nourished Cardiovascular: regular rate and rhythym, systolic murmur, No irregularly irregular, No diastolic murmur, No tachycardia, No bradycardia Respiratory: no respiratory distress, no rales or rhonchi, clear to auscultation Gastrointestinal: normoactive bowel sounds, soft, non-tender abdomen, no palpable masses ICD10 Worksheet Patient Problems: Problems Problem Status Onset Hyponatremia Acute chronic disease mgmt/Transitional care Acute Breast cancer Acute Headache Acute Hypertension Acute TIA (transient ischemic attack) Acute Hypertensive emergency Acute Anemia Acute Dehydration Acute Fever Acute
[2018-07-16] MEDS ORDERED: PROTOCOL POTASSIUM 1 DOSE MISC PRN (09:54)
[2018-07-16] MEDS ORDERED: CARBOXYMETHYLCELLULOSE 1% 0.4 ML DROPERETTE EACHEYE PRN (10:29)
--- NOTE | 2018-07-16 11:26 | PCMIDPN ---
Assessment/Plan: Assessment/Plan: * Invasive pneumococcal disease due to right upper lobe pneumonia: Continued clinical improvement with ceftriaxone. Repeat blood culture show no growth to date. White blood cell count has normalized. Plan 10 days of ceftriaxone therapy. Given clinical improvement, think she can be discharged home today. Will plan to complete antibiotic therapy at [address] [place] [address] with peripheral IV given duration of 6 remaining days. Will change ceftriaxone time to 1300 today to facilitate discharge home. Patient advised to notify our office for fever, chills, shortness of breath, cough or skin rash. Plan weekly laboratory monitoring while on ceftriaxone therapy. 07/16/18 11:25 Subjective: Patient feels significantly improved. Appetite has returned. Walking around unit without difficulty. No cough or shortness of breath. Objective: Vital Signs Temp Pulse Resp BP Pulse Ox 36.5 C 64 16 134/76 H 93 07/16/18 08:26 07/16/18 09:22 07/16/18 08:26 07/16/18 09:22 07/16/18 08:26 Microbiology 07/13/18 15:22 Urine Culture - Final Urine,Clean Catch Four [place] Types Gram Neg Angelo Lactose [employer] Laboratory Results 07/16/18 04:47 07/16/18 10:26 07/15/18 07/16/18 07/17/18 05:59 05:59 05:59 Intake Total 1140 500 Output Total 1500 600 Balance -360 500 -600 - Physical Exam General Appearance: alert, no apparent distress EENT: No scleral icterus, No thrush Respiratory: crackles (Coarse crackles right lower lung field) Cardiac/Chest: regular rate, rhythm, systolic murmur (No change in murmur), other (Pacemaker nontender without erythema) Skin: No embolic lesions ICD10 Worksheet Patient Problems: Problems Problem Status Onset Dehydration Acute Hyponatremia Acute Anemia Acute Breast cancer Acute Fever Acute Headache Acute Hypertension Acute Hypertensive emergency Acute TIA (transient ischemic attack) Acute chronic disease mgmt/Transitional care Acute
--- NOTE | 2018-07-16 16:04 | ASMTDCNOTE ---
Case Management Discharge Discharge Order Complete? Answers: Yes Patient to Obtain Answers: via Family Medications Transportation Arranged Answers: Family/Friends Transport will Pick (Date 07/16/2018 12:00 AM & Time) Family Notified Answers: Yes Notes: by pt via phone Discharge Comments Notes: Spoke with pt in the room. Pt insists she has plenty of family in town to help care for her over the holidays and feels comfortable with an independent discharge. Daughter to pick her up this afternoon. Pt scheduled for daily infusion starting tomorrow at 15:30 in the outpatient infusion center. Pt given instructions on registering daily through the ED. No further CM needs noted at this time. Date Signed: 07/16/2018 04:04 PM Electronically Signed By:Isha Thomas
[2018-07-16 16:11] VITALS: BP 154/71
--- NOTE | 2018-07-16 16:12 | ASDISCHSUM ---
Discharge Information Plan Status:Home with No Needs Medically Cleared to Leave:07/15/2018 Discharge Date:07/15/2018 CM D/C Disposition:Home, Routine, Self-Care ADT D/C Disposition:Home, Routine, Self-Care Projected Discharge Date:07/15/2018 Transportation at D/C:Family Discharge Delay Reason: Follow-Up Date:07/15/2018 Discharge Slot: Final Diagnosis:Pneumonia Placement Information Patient Contact Information Contact Name:KITA Relationship:Daughter Address:[address] City:[place] Alternate Phone: [facility]/Zip Code:[place] [address] Email: Financial Information Financial Class:Medicare Primary Plan Desc:MEDICARE INPATIENT Primary Plan Number:[id number] Secondary Plan Desc[facility] Secondary Plan Number:[id number] Assessment Information LACE LACE Acuity / Level of Answers: Yes Care: Did the patient have an inpatient admission? Comorbidities - select Answers: Any tumor (including all that apply lymphoma or leukemia) Other Notes: AFib; Lupus; HTN, hypot hyr oid, anxiety # of Emergency department Answers: 1-2 visits in the last 6 months Social determinants Answers: Mental health diagnosis (anxiety, depression, pers onality disorders, etc.) Score: 10 Date Signed: 07/16/2018 04:11 PM Electronically Signed By:Isha Thomas [facility] CM Progress Note CM Note CM Note Notes: Pt admitted to hospital for n/v/dehydration after spending time with grandson with same symptoms. She has a hx of breast ca. Pt lives alone in home and has a local dtr, dc needs TBD. DC Plan: TBD Date Signed: 07/13/2018 03:37 PM Electronically Signed By:Jeanie Monae RN [facility] CM Progress Note CM Note CM Note Notes: PT worked with pt and cleared her for home, anticipate pt will dc home w/support of daughter when medically stable. CM available for any changes. DC Plan: Independent Date Signed: 07/15/2018 03:34 PM Electronically Signed By:Jeanie Monae RN Case Management Discharge Plan Note Case Management Discharge Discharge Order Complete? Answers: Yes Patient to Obtain Answers: via Family Medications Transportation Arranged Answers: Family/Friends Transport will Pick (Date 07/16/2018 12:00 AM & Time) Family Notified Answers: Yes Notes: by pt via phone Discharge Comments Notes: Spoke with pt in the room. Pt insists she has plenty of family in town to help care for her over the holidays and feels comfortable with an independent discharge. Daughter to pick her up this afternoon. Pt scheduled for daily infusion starting tomorrow at 15:30 in the outpatient infusion center. Pt given instructions on registering daily through the ED. No further CM needs noted at this time. Date Signed: 07/16/2018 04:04 PM Electronically Signed By:Isha Thomas Intervention Information Intervention Type:*Incorrect Registration Date of Service:07/13/2018 10:50 AM Patient Type:Inpatient Staff Member:Evi Sandoval Hours: Discipline: Severity: Comment: Intervention Type:*KELLOGG-Signed Date of Service:07/13/2018 01:31 PM Patient Type:Observation Staff Member:Jillian Lopez Hours: Discipline: Severity: Comment:
[2018-07-16] MEDS: EXEMESTANE 25 MG TAB PO SCH (20:48)
--- NOTE | 2018-07-17 10:45 | GDS ---
ALL DIAGNOSES: 1. Streptococcus pneumoniae bacteremia. 2. Sepsis due to bacteremia. 3. Community-acquired pneumonia. 4. Immunosuppressed. 5. Viral gastroenteritis which has resolved. 6. Hypertension. 7. Atrial fibrillation. 8. Hyponatremia. 9. Mild renal insufficiency. 10. History of breast cancer. 11. Hypothyroid. 12. History of anxiety. HOSPITAL COURSE: This is an 83-year-old female, who presented with symptoms consistent with a viral gastroenteritis. Her symptoms of this resolved. Additionally, she was found to have a right upper l obe pneumonia as well as Strep pneumoniae bacteremia. She was seen by Infectious Disease. Followup surveillance cultures have been no growth to date. This plan will be a total of 10 days of Rocephin IV daily. She will complete her course as an outpatient in the infusion center. Orders w ill be placed by Infectious Disease. She had evidence of sepsis with significant leukocytosis, fever to 39.3. She had laboratory evidence of DIC including thrombocytopenia as well as elevated unconjugated bilirubin. These have all improv ed. On the day of discharge, she is comfortable, conversant and ambulatory. She is very concerned about her blood pressures. Her pressure on the morning of discharge is 164/89. She has been restarted on all of her home medications. She takes clonidine p.r.n. as well when she has elevated blood pressures. I have not made any changes to this. I recommend that she follow thi s as an outpatient to consider adjusting therapy if necessary. She has atrial fibrillation, she is on a relatively low dose of Eliquis as well as Bystolic. I have not changed these medications. BILLING: I spent more than 30 minutes on the day of discharge. /[id number]/MODL
== END 2018-07-16 21:50 | disposition home or self-care (01) | DRG 871 ==
LOC: INTOOBSV 19:35 → F3E 21:00 → OBSVTOIN 07-13 13:53
PROVIDERS: ADMIT Internal Medicine; ATTEND Internal Medicine
DX: A40.3 Sepsis due to Streptococcus pneumoniae (principal); J13 Pneumonia due to Streptococcus pneumoniae; I10 Essential (primary) hypertension; N17.9 Acute kidney failure, unspecified; A08.11 Acute gastroenteropathy due to Norwalk agent; E87.1 Hypo-osmolality and hyponatremia; F41.9 Anxiety disorder, unspecified; E03.9 Hypothyroidism, unspecified; I48.1 Persistent atrial fibrillation; Z95.810 Presence of automatic (implantable) cardiac defibrillator; Z79.01 Long term (current) use of anticoagulants; Z85.3 Personal history of malignant neoplasm of breast
CPT/HCPCS: 96374; 97116-GP; 97161-GP; G0009; G0378; G8978-GP-CJ; G8979-GP-CH; J0456; J0696; J2405; Q9967

== ENCOUNTER 2018-09-09 10:36 | Emergency (ER) | payer OTHER, BC ==
--- NOTE | 2018-09-09 11:08 | EDPHY ---
H & P Stated Complaint: SOB/fevers Time Seen by Provider: 09/09/18 11:03 HPI/ROS: HPI: This is an 83-year-old female who presents with Chief Complaint: Fever, cough Location: Chest Quality: Fever, productive cough Duration: Since Wednesday, approximately 3 days Signs and Symptoms: + fever, no nausea, no vomiting, no diarrhea, no urinary symptoms, no chest pain, + shortness of breath on exertion, no wheezing, + productive cough of green sputum, no sore throat, no neck stiffness, no joint pain, no swollen glands, no ear pain, no rash, + nasal congestion Timing: Acute onset, constant, worsening Severity: Moderate Context: Patient reports that she was admitted to the hospital in June with Streptococcus pneumonia requiring IV out patient antibiotics over . Presents with sudden onset Wednesday of a fever T-max of a 101 F taken temporally that responsive Tylenol but is returns after 5-6 hours. She reports that she has nasal congestion, postnasal drainage and productive cough of green sputum. She reports that she has shortness of breath with exertion. She is concerned that she may have pneumonia again. Not receive influenza vaccine. Modifying Factors: See above Comment: ROS: A comprehensive 10 system review of systems is otherwise negative aside from elements mentioned in the history of present illness. MEDICAL/SURGICAL/SOCIAL HISTORY: Medical history: HTN, lupus, breast CA (rt side), a-fib on Eliquis, PNA Surgical history: Mastectomy, pacemaker, appendectomy Social history: Retired, nonsmoker. Family history noncontributory. CONSTITUTIONAL: Well-developed, well-nourished, nontoxic-appearing elderly female who appears younger than stated age, awake and alert, no obvious distress HEENT: Atraumatic and normocephalic, PERRL, EOMI. Nares patent; no rhinorrhea; no nasal mucosal edema. Tympanic membranes clear. Oropharynx clear, no exudate and moist pink mucosa. Airway patent. No lymphadenopathy. No meningismus. Cardiovascular: Normal S1/S2, regular rate, regular rhythm, without murmur rub or gallop. PULMONARY/CHEST: Symmetrical and nontender. Clear to auscultation right. Coarseness noted in the left base. Good air movement. No accessory muscle usage. ABDOMEN: Soft, nondistended, nontender, no rebound, no guarding, no peritoneal signs, no masses or organomegaly. No CVAT. EXTREMITIES: 2/2 pulses, strength 5/5, no deformities, no clubbing, no cyanosis or edema. NEUROLOGICAL: no focal neuro deficits. GCS 15. SKIN: Warm and dry, no erythema. no rash. Good capillary refill. Source: Patient, Old records Exam Limitations: No limitations - Personal History Current Tetanus/Diphtheria Vaccine: No - Medical/Surgical History Hx Asthma: No Hx Chronic Respiratory Disease: No Hx Diabetes: No Hx Cardiac Disease: Yes Hx Renal Disease: No Hx Cirrhosis: No Hx Alcoholism: No Hx HIV/AIDS: No Hx Splenectomy or Spleen Trauma: No Other PMH: HTN, lupus, pacemaker, appy, breast CA (rt side), a-fib, PNA - Social History Smoking Status: Never smoked Constitutional: Initial Vital Signs Temperature (C) 36.8 C 09/09/18 10:43 Heart Rate 73 09/09/18 10:43 Respiratory Rate 18 09/09/18 10:43 Blood Pressure 130/61 H 09/09/18 10:43 O2 Sat (%) 96 09/09/18 10:43 O2 Delivery Mode Room Air Allergies/Adverse Reactions: No Known Allergies Allergy (Verified 09/09/18 10:45) Home Medications: Medication Instructions Recorded Apixaban [Eliquis] 2.5 mg PO BID 07/12/18 Exemestane 25 mg PO HS 07/12/18 Furosemide [Lasix 20 MG (*)] 20 mg PO DAILY PRN 07/12/18 Hydrochlorothiazide [HCTZ (*)] 12.5 mg PO DAILY 07/12/18 Lisinopril [Zestril 5 mg (*)] 5 mg PO BID 07/12/18 Nebivolol HCl [Bystolic 5 mg (*)] 5 mg PO BID 07/12/18 Potassium Chloride [Klor-Con M20] 20 meq PO DAILY PRN 07/12/18 cefTRIAXone [Rocephin] 2 gm IV DAILY vial 07/16/18 clonIDINE [Catapres (*)] 0.1 mg PO Q4 PRN tab 07/16/18 Levothyroxine Sodium 12.5 mcg PO DAILY@06 07/17/18 [Levothyroxine Sodium] Amoxicillin/Clavulanate Pot 875 mg PO BID #14 tab 09/09/18 [Augmentin 875 MG TAB (*)] Azithromycin [Zithromax] 250 mg PO DAILY #6 tab 09/09/18 Medical Decision Making - Diagnostics Imaging Results: Imaging Impressions Chest X-Ray 09/09/18 11:08 Impression: Interval resolution of masslike consolidation lateral aspect right upper lobe from prior study. Persistent reticulonodular interstitial infiltrate in the central right lung may represent residual and/or recurrent pneumonia.. ED Course/Re-evaluation: Vital signs reviewed and stable. No systemic signs. No indication for sepsis protocol. IV access, laboratory studies, chest x-ray, influenza swab ordered Patient given DuoNeb and IV Toradol 15 mg 1205: Labs reviewed. WBC 10 K, sodium 130, BUN 24, creatinine 1.0, influenza negative 1223: Chest x-ray radiology read shows: Interval resolution of masslike consolidation lateral aspect right upper lobe from prior study. Persistent reticulonodular interstitial infiltrate in the central right lung may represent residual and/or recurrent pneumonia. 1300: After discussion with attending, will treat patient for bronchitis, sinusitis. Chest x-ray shows no definitive new infiltrate. Based on history strep pneumonia and strep bacteremia and June 2018 will give patient prescription for Augmentin and azithromycin to treat community-acquired pneumonia in unhealthy patient. She is to follow up with her primary care provider on Wednesday. She has no signs of sepsis, hypoxia, respiratory distress. She is appropriate for outpatient treatment. This patient was seen under the supervision of my secondary supervising physician. I evaluated care for this patient with attending. Discussed this patient with Dr. Bagley. Differential Diagnosis: Adult fever including but not limited to viral syndromes including influenza, urinary tract infection, pneumonia and sepsis. - Data Points Laboratory Results: Laboratory Results 09/09/18 11:34 09/09/18 11:34 09/09/18 09/09/18 09/09/18 11:34 11:34 11:34 WBC 9.83 10^3/uL H 10^3/uL (3.80-9.50) RBC 3.65 10^6/uL L 10^6/uL (4.18-5.33) Hgb 12.6 g/dL g/dL (12.6-16.3) Hct 35.5 % L % (38.0-47.0) MCV 97.3 fL fL (81.5-99.8) MCH 34.5 pg H pg (27.9-34.1) MCHC 35.5 g/dL g/dL (32.4-36.7) RDW 14.1 % % (11.5-15.2) Plt Count 163 10^3/uL 10^3/uL (150-400) MPV 9.1 fL fL (8.7-11.7) Neut % (Auto) 84.8 % H % (39.3-74.2) Lymph % (Auto) 5.7 % L % (15.0-45.0) [place] % (Auto) 9.0 % % (4.5-13.0) Eos % (Auto) 0.0 % L % (0.6-7.6) Baso % (Auto) 0.1 % L % (0.3-1.7) Nucleat RBC Rel Count 0.0 % % (0.0-0.2) Absolute Neuts (auto) 8.34 10^3/uL H 10^3/uL (1.70-6.50) Absolute Lymphs (auto) 0.56 10^3/uL L 10^3/uL (1.00-3.00) Absolute Monos (auto) 0.88 10^3/uL H 10^3/uL (0.30-0.80) Absolute Eos (auto) 0.00 10^3/uL L 10^3/uL (0.03-0.40) Absolute Basos (auto) 0.01 10^3/uL L 10^3/uL (0.02-0.10) Absolute Nucleated RBC 0.00 10^3/uL 10^3/uL (0-0.01) Immature Gran % 0.4 % % (0.0-1.1) Immature Gran # 0.04 10^3/uL 10^3/uL (0.00-0.10) RBC/WBC/PLT Morphology TNP Platelet Estimate ADEQUATE (ADEQ) Sodium 130 mEq/L L mEq/L (135-145) Potassium 3.6 mEq/L mEq/L (3.5-5.2) Chloride 99 mEq/L mEq/L (97-110) Carbon Dioxide 24 mEq/l mEq/l (22-31) Anion Gap 7 mEq/L mEq/L (6-14) BUN 24 mg/dL H mg/dL (7-23) Creatinine 1.0 mg/dL mg/dL (0.6-1.0) Estimated GFR 53 Glucose 149 mg/dL H mg/dL (70-100) Calcium 9.0 mg/dL mg/dL (8.5-10.4) Total Bilirubin 1.1 mg/dL mg/dL (0.1-1.4) Conjugated Bilirubin 0.3 mg/dL mg/dL (0.0-0.5) Unconjugated Bilirubin 0.8 mg/dL mg/dL (0.0-1.1) AST 67 IU/L H IU/L (14-46) ALT 82 IU/L H IU/L (9-52) Alkaline Phosphatase 86 IU/L IU/L (38-126) Total Protein 7.8 g/dL g/dL (6.3-8.2) Albumin 3.9 g/dL g/dL (3.5-5.0) Nasal Influenza A PCR NEGATIVE FOR FLU A (NEGATIVE) Nasal Influenza B PCR NEGATIVE FOR FLU B (NEGATIVE) Medications Given: Discontinued Medications Albuterol/Ipratropium (Duoneb) 3 ml IH EDNOW ONE Stop: 09/09/18 11:10 Last Admin: 09/09/18 11:16 Dose: 3 ml Ketorolac Tromethamine (Toradol) 15 mg IVP EDNOW ONE Stop: 09/09/18 11:10 Last Admin: 09/09/18 11:26 Dose: 15 mg Departure - Departure Disposition: Home, Routine, Self-Care Clinical Impression: History of pneumonia, Acute bacterial bronchitis Sinusitis Qualifiers: Sinusitis location: maxillary Chronicity: acute Recurrence: non-recurrent Qualified Code(s): J01.00 - Acute maxillary sinusitis, unspecified Condition: Good Instructions: Sinusitis (ED), Acute Bronchitis (ED) Additional Instructions: Please take antibiotics as directed. Do not skip a dose. Take Tylenol 650 mg every 4 hr and/or ibuprofen 600 mg with food every 6-8 hours as needed for pain, fever, headache. Please call primary care provider today to have a follow-up appointment on Wednesday or Wednesday. Return to the ER immediately if you experience fevers/chills, shortness of breath, abdominal pain, inability to tolerate oral intake, or any other symptoms that concern you. Follow-Up: Please follow-up as noted above. Follow-up sooner if your condition worsens or if you develop any new problems. Call as soon as possible for an appointment. Be clear when you call for an appointment that this is an Emergency Department follow-up. Contact the Emergency Department if you have trouble arranging follow-up care. Our referrals are not based on your insurance network. When time allows, contact your insurance carrier to verify the referral physician is in your plan. If not, get a referral for an in-healthcare network consultant. Referrals: Narinder Pulido MD [Primary Care Provider] - 2-3 days without fail Prescriptions: Amoxicillin/Clavulanate Pot [Augmentin 875 MG TAB (*)] 875 mg PO BID #14 tab Azithromycin [Zithromax] 250 mg PO DAILY #6 tab
[2018-09-09] MEDS ORDERED: IPRATROPIUM/ALBUTEROL 3 ML DEYVIAL IH ONE (11:09)
[2018-09-09] MEDS ORDERED: KETOROLAC 15 MG/1 ML SDV IVP ONE (11:09)
[2018-09-09 11:45] LABS: PLATELET COUNT 163 10^3/uL (150-400)
[2018-09-09 12:56] VITALS: BP 136/71
== END 2018-09-09 13:12 | disposition home or self-care (01) ==
DX: J40 Bronchitis, not specified as acute or chronic (principal); J01.00 Acute maxillary sinusitis, unspecified; M32.9 Systemic lupus erythematosus, unspecified; I48.91 Unspecified atrial fibrillation; I10 Essential (primary) hypertension; Z87.01 Personal history of pneumonia (recurrent); Z79.899 Other long term (current) drug therapy
CPT/HCPCS: 71046; 96374; 99284; J1885

== ENCOUNTER → 2018-10-06 | Outpatient (CLI) | payer OTHER, BC | LOC: FIMAGING 12:36 | PROVIDERS: ATTEND Physician Assistant | DX: J18.1 Lobar pneumonia, unspecified organism (principal); Z95.0 Presence of cardiac pacemaker ==

== ENCOUNTER → 2018-10-28 | Outpatient (CLI) | payer OTHER, BC | LOC: FIMAGING 11:24 | PROVIDERS: ATTEND Internal Medicine Critical Care Medicine | DX: J21.9 Acute bronchiolitis, unspecified (principal); J18.9 Pneumonia, unspecified organism ==

== ENCOUNTER 2018-11-10 10:07 | Emergency (ER) | payer OTHER, BC ==
--- NOTE | 2018-11-10 11:07 | EDPHY ---
H & P Stated Complaint: High B/P Time Seen by Provider: 11/10/18 10:31 HPI/ROS: CHIEF COMPLAINT: High blood pressure HISTORY OF PRESENT ILLNESS: 83-year-old female with hypertension and lupus presents with elevated blood pressure. Over the past 3 mornings, her blood pressures been running high, with a systolic blood pressure near 190. Yesterday evening, she took lisinopril 10 mg orally (usually takes 5mg in the mendoza). This morning, her blood pressure was running high and she took clonidine 0.1 mg orally. She had a moderate headache this morning, now resolved. She tried to call her primary care physician, but Dr. Puliod's practice has changed and she needs to find a new PCP. Recently completed a course of prednisone for a lupus flare. REVIEW OF SYSTEMS: complete 10 point ROS reviewed and is negative except for the noted elements in the HPI - Personal History Current Tetanus/Diphtheria Vaccine: Unsure - Medical/Surgical History Hx Asthma: No Hx Chronic Respiratory Disease: Yes Hx Diabetes: No Hx Cardiac Disease: Yes Hx Renal Disease: No Hx Cirrhosis: No Hx Alcoholism: No Hx HIV/AIDS: No Hx Splenectomy or Spleen Trauma: No Other PMH: HTN, lupus, pacemaker, appy, breast CA (rt side), a-fib, PNA - Family History Significant Family History: No pertinent family hx - Social History Smoking Status: Never smoked Alcohol Use: Sober Drug Use: None - Physical Exam Exam: General Appearance: Alert, pleasant Eyes: Pupils equal and round, no conjunctival pallor or injection ENT, Mouth: Mucous membranes moist Neck: Normal inspection Respiratory: scattered expiratory wheezing Cardiovascular: Regular rate and rhythm, 2/6 systolic murmur Gastrointestinal: Abdomen is soft and nontender Neurological: A&O, nonfocal, normal gait Skin: Warm and dry Extremities: Normal inspection Psychiatric: Anxious Constitutional: Initial Vital Signs Temperature (C) 36.8 C 11/10/18 10:21 Heart Rate 62 11/10/18 10:21 Respiratory Rate 18 11/10/18 10:21 Blood Pressure 146/98 H 11/10/18 10:21 O2 Sat (%) 95 11/10/18 10:21 O2 Delivery Mode Room Air Allergies/Adverse Reactions: No Known Allergies Allergy (Verified 11/10/18 10:25) Home Medications: Medication Instructions Recorded Apixaban [Eliquis] 2.5 mg PO BID 07/12/18 Exemestane 25 mg PO HS 07/12/18 Furosemide [Lasix 20 MG (*)] 20 mg PO DAILY PRN 07/12/18 Hydrochlorothiazide [HCTZ (*)] 12.5 mg PO DAILY 07/12/18 Lisinopril [Zestril 5 mg (*)] 5 mg PO BID 07/12/18 Nebivolol HCl [Bystolic 5 mg (*)] 5 mg PO BID 07/12/18 Potassium Chloride [Klor-Con M20] 20 meq PO DAILY PRN 07/12/18 cefTRIAXone [Rocephin] 2 gm IV DAILY vial 07/16/18 clonIDINE [Catapres (*)] 0.1 mg PO Q4 PRN tab 07/16/18 Levothyroxine Sodium 12.5 mcg PO DAILY@06 07/17/18 [Levothyroxine Sodium] Amoxicillin/Clavulanate Pot 875 mg PO BID #14 tab 09/09/18 [Augmentin 875 MG TAB (*)] Azithromycin [Zithromax] 250 mg PO DAILY #6 tab 09/09/18 Medical Decision Making ED Course/Re-evaluation: Assessment: Elevated BP, now 145/89. d/w pt at length. Will increase mendoza dose of lisinopril, continue clonidine prn. Warning signs discussed. f/u PCP. Also d/w pt wheezing, states typical for her, will use home inhaler. Differential Diagnosis: ICH, ACS, ARF, pulm edema Departure - Departure Disposition: Home, Routine, Self-Care Clinical Impression: Hypertension Qualifiers: Hypertension type: essential hypertension Qualified Code(s): I10 - Essential ( primary) hypertension Condition: Good Instructions: Hypertension (ED) Additional Instructions: 1. Increase your evening lisinopril to 10 mg. 2. If you blood pressure is still running high, increase her morning lisinopril to 10 mg. 3. Take clonidine as prescribed. 4. Make an appointment to see a new primary care physician. 5. Return with any concerns. 6. You have a heart murmur. Please d/w Dr. Patel. Referrals: Adrián Manuel MD [Medical Doctor] - As per Instructions
[2018-11-10 11:47] VITALS: BP 121/67
== END 2018-11-10 11:48 | disposition home or self-care (01) ==
LOC: EDUNIT#
DX: I10 Essential (primary) hypertension (principal); L93.0 Discoid lupus erythematosus